=== PATIENT | male | born 1955 | race Caucasian/White ===

== ENCOUNTER 2017-12-08 09:55 | Emergency (ER) | payer SELFPAY ==
[~2017-12-08] VITALS: Ht 177.8 cm; Wt 75.0 kg
[2017-12-08 09:59] VITALS: BP 196/94; PULSE 77; RESP 18; TEMP 97.7; O2SAT 98
--- NOTE | 2017-12-08 10:32 | PD ---
HPI Chief Complaint: Pain: Acute or Chronic Time Seen by Provider: 10:13 Travel History International Travel<30 days: No Contact w/Intl Traveler<30days: No Traveled to known affect area: No History of Present Illness HPI 62-year-old male presents to emergency department with complaint of left lower leg and ankle pain since Monday after he dropped a table on his leg. He says he is able to ambulate and is ambulatory, but he is complaining of continuing pain. He has 2 scabbed abrasions to the lower left leg also. Unknown tetanus status. Does not want his tetanus vaccination updated. Denies paresthesias, loss of sensation, decreased range of motion, decreased strength to the affected extremity. Reports swelling and bruising. Rates pain 12/17. Has not tried any treatments or taken any medications to alleviate his symptoms. Aggravated with walking. Better at rest. No primary care provider. No known allergies. Denies significant past medical history. Has no other medical complaints. No other modifying factors or associated signs and symptoms. [facility] Social History Alcohol Use: Yes Tobacco Use: Yes Substance Use: No Allergies-Medications (Allergen,Severity, Reaction): Coded Allergies: No Known Allergies (Unverified , 12/08/17) Reported Meds & Prescriptions Reported Meds & Active Scripts Active Ibuprofen 800 Mg Tab 800 Mg PO Q6HR PRN Review of Systems Except as stated in HPI: all other systems reviewed are Neg Physical Exam Narrative GENERAL: Well-nourished, well-developed male patient, in no acute distress SKIN: Warm and dry. 2 scabbed abrasion noted to the left lower medial richardson; without signs of infection. HEAD: Atraumatic. Normocephalic. EYES: Pupils equal and round. No scleral icterus. No injection or drainage. ENT: Mucosa pink and moist. Airway patent. NECK: Trachea midline. CARDIOVASCULAR: Regular rate. RESPIRATORY: No accessory muscle use. GASTROINTESTINAL: Flat. MUSCULOSKELETAL: Left ankle with point tenderness to the medial malleolus zone with palpation; without erythema; with edema and ecchymosis. Left lower leg with minimal edema and ecchymosis noted; with tenderness on palpation. Left lower extremity is supple and nontense with 2+ pedal pulse and sensory intact. No obvious deformities. No clubbing. No cyanosis. No edema. NEUROLOGICAL: Awake and alert. Oriented 3. No obvious cranial nerve deficits. Motor grossly within normal limits. Normal speech. PSYCHIATRIC: Appropriate mood and affect; insight and judgment normal. Data Data Last Documented VS Vital Signs Date Time Temp Pulse Resp B/P (MAP) Pulse Ox O2 Delivery O2 Flow Rate FiO2 12/08/17 09:59 97.7 77 18 196/94 (128) 98 Orders Orders Ankle, Complete ([id number]) (12/08/17 10:23) Tibia/Fibula (Ap/Lat) (12/08/17 10:23) Crutches (12/08/17 10:23) Splint Or Brace Apply/Monitor (12/08/17 11:23) Ed Discharge Order (12/08/17 11:23) Brace Ankle Stirrup (12/08/17 ) Brace Ankle Stirrup (12/08/17 ) MDM Medical Decision Making Medical Screen Exam Complete: Yes Emergency Medical Condition: Yes Medical Record Reviewed: Yes Differential Diagnosis Abrasion, contusion, fracture, sprain Narrative Course 62-year-old male with left lower leg and ankle injury. After the patient pain medication and he declined. Left tib-fib x-ray and left ankle x-ray ordered. 1124: Left ankle and left tib-fib x-ray concluded: Tibia/Fibula X-Ray 12/08/17 1023 Signed Impressions: CONCLUSION: Negative trauma study. Ankle X-Ray 12/08/17 1023 Signed Impressions: CONCLUSION: Negative trauma study. X-ray findings discussed with the patient. Pedro bandage, ankle stirrup splint, crutches provided for support. Ibuprofen prescribed for home. Instructed patient to follow-up outpatient if symptoms persist greater than 7-10 days. Instructed patient to follow up with primary care provider. Patient verbalizes understanding and agreement with treatment plan. Patient is medically cleared and stable for discharge. Discussed reasons to return to the emergency department. Patient agrees with treatment plan. The patients vital signs are stable and the patient is stable for outpatient follow-up and treatment. Patient discharged home, stable and in no acute distress. Diagnosis Primary Impression: Contusion of left lower leg Qualified Codes: S80.12XA - Contusion of left lower leg, initial encounter Additional Impressions: Abrasion, left lower leg, initial encounter Left ankle injury Qualified Codes: S99.912A - Unspecified injury of left ankle, initial encounter Referrals: Orthopedist Primary Care Physician Patient Instructions: Abrasion (ED), General Instructions Additional Instructions: Tylenol or ibuprofen as directed and as needed for pain and inflammation Rest, ice, compress, and elevate extremity to decrease pain and inflammation Ankle Brace for support Crutches for support Avoid aggravating activity; increase activity as tolerated Follow-up with primary care provider Return to the emergency department immediately with worsening of symptoms Med/Other Pt SpecificInfo: Prescription(s) given Scripts Ibuprofen (Ibuprofen) 800 Mg Tab 800 MG PO Q6HR Y for PAIN, #20 TAB 0 Refills Prov: Karley Randhawa 12/08/17 Disposition: 01 DISCHARGE HOME Condition: Stable Karley Randhawa Dec 08, 2017 10:32
--- NOTE | 2017-12-08 11:06 | RADRPT ---
EXAM DATE: 12/08/2017 10:50 AM EDT AGE/SEX: 62 years / Male INDICATIONS: Left ankle pain on anterior aspect after dropping a table on lower leg. CLINICAL DATA: This is the patient's initial encounter. Patient reports that signs and symptoms have been present for 2 days and indicates a pain score of 6/10. MEDICAL/SURGICAL HISTORY: None. None. COMPARISON: No prior [place] exams available for comparison. FINDINGS: Bony structures are intact and in normal alignment. Joints are intact without dislocation or signifi cant arthropathy. Osseous density is normal. Soft tissues are unremarkable. No radiopaque foreign bodies seen. CONCLUSION: Negative trauma study. Electronically signed by: Braulio Alcala MD 12/08/2017 11:04 AM EDT
--- NOTE | 2017-12-08 11:06 | RADRPT ---
EXAM DATE: 12/08/2017 10:52 AM EDT AGE/SEX: 62 years / Male INDICATIONS: Left distal tibia/fibula pain after dropping table on it. CLINICAL DATA: This is the patient's initial encounter. Patient reports that signs and symptoms have been present for 2 days and indicates a pain score of 6/10. MEDICAL/SURGICAL HISTORY: None. None. COMPARISON: No prior [place] exams available for comparison. FINDINGS: Bony structures are intact and in normal alignment. Osseous density is normal. Soft tissues are unre markable. No radiopaque foreign bodies seen. CONCLUSION: Negative trauma study. Electronically signed by: Braulio Alcala MD 12/08/2017 11:05 AM EDT
[2017-12-08] MEDS ORDERED: IBUP1TAB7 PO (11:35)
== END 2017-12-08 11:45 | disposition home or self-care (01) ==
LOC: NEPD 09:55
DX: S80.12XA Contusion of left lower leg, initial encounter (principal); S80.812A Abrasion, left lower leg, initial encounter; Z72.0 Tobacco use; W22.8XXA Striking against or struck by other objects, initial encounter
CPT/HCPCS: 73590; 73610; 99283; E0113; L1906

== ENCOUNTER 2018-05-01 15:30 | Inpatient (IN) ==
[2018-05-01] MEDS ORDERED: Sod Chloride 0.9% Inj 1,000 ML IV.SIG ONE (16:05)
[2018-05-01] MEDS ORDERED: Morphine Inj 4 MG/ML Vial IV.PUSH ONE (16:05)
--- NOTE | 2018-05-01 16:12 | ED ---
HPI General Chief Complaint: Abdominal Pain Stated Complaint: Right side pain Time Seen by Provider: 05/01/18 16:00 Source: patient and RN notes reviewed Mode of arrival: ambulatory Limitations: no limitations History of Present Illness HPI narrative: 63-year-old male presents to the emergency department for evaluation of right upper, epigastric abdominal pain. He states it has been intermittent for approximately week, but worsened over the past 2 days. Patient states it has been constant for the past 2 days. Current pain is 8/10, aching and sharp. He denies radiation of the pain. He also reports some right- sided neck pain that he states has been ongoing for several weeks, worse with movement. Patient denies any nausea, vomiting, diarrhea, constipation. He denies any history of abdominal pain or abdominal surgeries. Patient does state that he drinks 2 beers daily. No other symptoms or complaints. Moderate severity. MD complaint: Reports abdominal pain Onset (ago): week(s) Pain Consistency: constant Location: Reports RUQ and epigastric Severity: moderate Severity scale (1-10): 8 Quality: Reports aching and sharp Radiation: Reports none Migration to: Reports no migration Relieving factors: nothing Exacerbating factors: nothing Associated symptoms: Denies nausea, vomiting, diarrhea, fever, chills, constipation, dysuria and syncope Related Data Home Medications Medication Instructions Recorded Confirmed No Known Home Medications 05/01/18 05/01/18 Allergies Allergy/AdvReac Type Severity Reaction Status Date / Time No Known Allergies Allergy Unverified 12/08/17 11:35 Review of Systems ROS: all other systems reviewed are negative [facility] Medical History Medical History Patient denies medical problems (Acute) Surgical History Surgical History No history of previous surgery (Acute) Social History Social History Smoking Status: Never smoker How Often Do You Have a Drink Containing Alcohol: 4 or more times a week Recent Travel in [facility] within the Last 8 Weeks: No Recent Out of Country Travel within the Last 8 Weeks: No Immunization History Tetanus Immunization: Unsure Exam Narrative Exam Narrative: GENERAL: Well-nourished, well-developed male patient, ambulatory. Afebrile. SKIN: Focused skin assessment warm/dry. HEAD: Normocephalic. Atraumatic. EYES: No scleral icterus. No injection or drainage. NECK: Supple, trachea midline. No JVD or lymphadenopathy. CARDIOVASCULAR: Regular rate and rhythm without murmurs, gallops, or rubs. RESPIRATORY: Breath sounds equal bilaterally. No accessory muscle use. GASTROINTESTINAL: Abdomen slightly distended, tenderness over epigastric area and RUQ. MUSCULOSKELETAL: No cyanosis, or edema. BACK: Nontender without obvious deformity. No CVA tenderness. He has tenderness over the right trapezius muscle to palpation. Course Initial Documented Vital Signs Temperature 98.8 F 05/01/18 15:39 Pulse Rate 94 H 05/01/18 15:39 Respiratory Rate 16 05/01/18 15:39 Blood Pressure 191/96 H 05/01/18 15:39 Pulse Oximetry 98 05/01/18 15:39 Last Documented Vital Signs Temperature 98.8 F 05/01/18 15:39 Pulse Rate 78 05/01/18 17:00 Respiratory Rate 16 05/01/18 17:00 Blood Pressure 173/98 H 05/01/18 17:00 Pulse Oximetry 95 05/01/18 17:00 Medical Decision Making EJ Attestation EJ supervised visit: Yes Attestation: I was present with the advanced practitioner during the management of this patient. I discussed the case with the advanced practitioner and agree with the findings and plan as documented in their note except as noted below. 63yM presenting with RUQ/ epigastric abdominal pain x several weeks. The patient states that he's been having intermittent episodes of "aching" RUQ/ epigastric pain for the past several weeks which lasts for hours, not made better or worse by anything, moderate to severe intensity, associated with right shoulder pain. Denies fever or chills, chest pain, cough, nausea or vomiting, diarrhea, dysuria, or trauma. Family history significant for sisters with breast and colon CA. Well-appearing, no acute distress NCAT Trachea midline Regular rate and rhythm Lungs clear bilaterally Abdomen soft, (+) hepatomegaly and (+) Reich's sign, no guarding or rebound No lower extremity edema, normal ROM of bilateral shoulders/ non-tender No rashes or lesions, no jaundice A&Ox3 Appropriate affect A/P: 63yM presenting with RUQ/ epigastric abdominal pain, found to have elevated bilirubin and LFTs as well as large right hepatic mass. Shoulder pain may be referred from diaphragm irritation. Case discussed with Dr. Mcghee of oncology, who recommends transferring patient to the main campus for GI and oncology evaluations, biopsy, and further workup. He also recommends checking CA 19-9, CEA, and AFP tumor markers. Case also discussed with Dr. Rendon of [facility] , who agrees with transfer to [facility]. I explained these results to the patient and his as well as plan to transfer to [facility]; they understand and agree. [facility] Narrative Medical decision making narrative: 63-year-old male presents to the emergency department for evaluation of abdominal pain. He also reports right-sided neck pain is consistent with muscle strain. IV access obtained. EKG, CBC, CMP, magnesium, lipase, PTT, PT/INR, UA ordered and pending. Patient is given normal saline 1 L IV bolus, morphine 4 mg IV, Zofran [address] abdomen/ pelvis with IV contrast is ordered and pending. Ultrasound of the gallbladder was added on by my attending physician, Dr. Pettit. EKG shows SR, no acute ST changes. CBC shows no acute abnormality. CMP shows elevated bilirubin 1.4, AST 119, ALT 175, alkaline phosphatase 164. Lipase is 158. Magnesium is 2.1. PTT is 29.2. PT/INR is 11.2/1.1. 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 My attending physician, Dr. Pettit, called oncologist risk prevention engineer, Dr. Mcghee who recommends admission to the [facility] for biopsy, pain control. She spoke to the hospitalist and admitted the patient. Medical Screen Exam Complete: Yes Emergency Medical Condition: Yes Differential Diagnosis Differential Diagnosis: pancreatitis vs. cholecystitis versus cholelithiasis versus liver cirrhosis versus gastritis Medical Records Medical records reviewed: Yes I reviewed the patient's medical records. Lab Data Lab results reviewed: Yes I reviewed the patient's lab results. Result diagrams: 05/01/18 16:15 05/01/18 16:15 Lab Results 05/01/18 05/01/18 05/01/18 Range/Units 16:15 16:15 16:15 CBC w Diff Auto diff final WBC 6.0 (4.0-11.0) th/mm3 RBC 4.09 L (4.50-5.90) mil/mm3 Hgb 12.8 L (13.0-17.0) gm/dL Hct 36.9 L (39.0-51.0) % MCV 90.4 (80.0-100.0) fL MCH 31.4 (27.0-34.0) pg MCHC 34.7 (32.0-36.0) % RDW 15.4 (11.6-17.2) % Plt Count 106 L (150-450) th/mm3 MPV 9.8 (7.0-11.0) fL Neut % (Auto) 71.7 H (16.0-70.0) % Lymph % (Auto) 15.0 (9.0-44.0) % [place] % (Auto) 5.9 (0.0-8.0) % Eos % (Auto) 3.8 (0.0-4.0) % Baso % (Auto) 3.6 H (0.0-2.0) % Neut # (Auto) 4.3 (1.8-7.7) th/mm3 Lymph # (Auto) 0.9 L (1.0-4.8) th/mm3 [place] # (Auto) 0.4 (0.0-0.9) th/mm3 Eos # (Auto) 0.2 (0.0-0.4) th/mm3 Baso # (Auto) 0.2 (0.0-0.2) th/mm3 WBC Differential . Differential Comment . PT 11.2 (9.8-11.6) sec INR 1.1 Ratio APTT 29.2 (24.3-30.1) sec Sodium 133 L (136-145) meq/L Potassium 4.1 (3.5-5.1) meq/L Chloride 99 (98-107) meq/L Carbon Dioxide 24.1 (21.0-32.0) meq/L Anion Gap 10 (5-15) meq/L BUN 10 (7-18) mg/dL Creatinine 0.88 (0.60-1.30) mg/dL Estimated GFR 88 L (>89) mL/min Random Glucose 98 (74-106) mg/dL Calcium 8.6 (8.5-10.1) mg/dL Magnesium 2.1 (1.5-2.5) mg/dL Total Bilirubin 1.4 H (0.2-1.0) mg/dL AST 119 H (15-37) U/L ALT 175 H (12-78) U/L Alkaline Phosphatase 164 H (45-117) U/L Total Protein 7.1 (6.4-8.2) g/dL Albumin 3.2 L (3.4-5.0) g/dL Lipase 158 (73-393) U/L Alpha Fetoprotein HCG, Quant Gestational Age AFP MoM AFP Interpretation HCG MoM Unconj (Free) Estriol Unconj Estriol MoM Down's Maternal Age Risk Down Syndrome Risk Trisomy 18 Risk NTD Risk Assessment 05/01/18 Range/Units 18:16 CBC w Diff WBC (4.0-11.0) th/mm3 RBC (4.50-5.90) mil/mm3 Hgb (13.0-17.0) gm/dL Hct (39.0-51.0) % MCV (80.0-100.0) fL MCH (27.0-34.0) pg MCHC (32.0-36.0) % RDW (11.6-17.2) % Plt Count (150-450) th/mm3 MPV (7.0-11.0) fL Neut % (Auto) (16.0-70.0) % Lymph % (Auto) (9.0-44.0) % [place] % (Auto) (0.0-8.0) % Eos % (Auto) (0.0-4.0) % Baso % (Auto) (0.0-2.0) % Neut # (Auto) (1.8-7.7) th/mm3 Lymph # (Auto) (1.0-4.8) th/mm3 [place] # (Auto) (0.0-0.9) th/mm3 Eos # (Auto) (0.0-0.4) th/mm3 Baso # (Auto) (0.0-0.2) th/mm3 WBC Differential Differential Comment PT (9.8-11.6) sec INR Ratio APTT (24.3-30.1) sec Sodium (136-145) meq/L Potassium (3.5-5.1) meq/L Chloride (98-107) meq/L Carbon Dioxide (21.0-32.0) meq/L Anion Gap (5-15) meq/L BUN (7-18) mg/dL Creatinine (0.60-1.30) mg/dL Estimated GFR (>89) mL/min Random Glucose (74-106) mg/dL Calcium (8.5-10.1) mg/dL Magnesium (1.5-2.5) mg/dL Total Bilirubin (0.2-1.0) mg/dL AST (15-37) U/L ALT (12-78) U/L Alkaline Phosphatase (45-117) U/L Total Protein (6.4-8.2) g/dL Albumin (3.4-5.0) g/dL Lipase (73-393) U/L Alpha Fetoprotein Cancelled HCG, Quant Cancelled Gestational Age Cancelled AFP MoM Cancelled AFP Interpretation Cancelled HCG MoM Cancelled Unconj (Free) Estriol Cancelled Unconj Estriol MoM Cancelled Down's Maternal Age Risk Cancelled Down Syndrome Risk Cancelled Trisomy 18 Risk Cancelled NTD Risk Assessment Cancelled Imaging Data Radiologist's impression: Abdomen/Pelvis CT 05/01/18 16:05 CONCLUSION: 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 See above discussion. ECG Data Attestation: I personally reviewed and interpreted this ECG as follows: Interpretation: Rate: 80 BPM Rhythm: Sinus [place]: Normal Intervals: Normal intervals, no blocks, QTc 428 ms Q waves: None T waves: Upright, no inversions ST segments: No elevations or depressions Impression: Non-specific EKG, no previous EKG available for comparison. Discharge Plan Discharge Disposition Patient Disposition: 30 Still Patient Discharge Details Diagnosis: Liver mass, right lobe, Transaminitis, Hyperbilirubinemia Physicians Team ED Provider: Kayla Pettit ED Midlevel Provider: Kathia Gallegos Primary Care Provider: Primary Care [place],No Other Providers: Brady Mcghee Rxs /Orders / Referrals /Forms Prescriptions: No Action No Known Home Medications RF: 0 Discharge Interventions Interventions: Vital Signs Last Done: 05/01/18 17:00 Status ED Status: With Doctor
[2018-05-01 16:22] LABS: Baso # (Auto) 0.2 th/mm3 (0.0-0.2); Baso % (Auto) 3.6 % (0.0-2.0); Eos # (Auto) 0.2 th/mm3 (0.0-0.4); Eos % (Auto) 3.8 % (0.0-4.0); Hematocrit 36.9 % (39.0-51.0); Hemoglobin 12.8 gm/dL (13.0-17.0); Lymph # (Auto) 0.9 th/mm3 (1.0-4.8); Mean Corpuscular HGB Conc 34.7 % (32.0-36.0); Mean Corpuscular Hemoglobin 31.4 pg (27.0-34.0); Mean Corpuscular Volume 90.4 fL (80.0-100.0); Mean Platelet Volume 9.8 fL (7.0-11.0); Mono # (Auto) 0.4 th/mm3 (0.0-0.9); Mono % (Auto) 5.9 % (0.0-8.0); Neut # (Auto) 4.3 th/mm3 (1.8-7.7); Neut % (Auto) 71.7 % (16.0-70.0); Platelet Count 106 th/mm3 (150-450); Red Blood Count 4.09 mil/mm3 (4.50-5.90); Red Cell Distribution Width 15.4 % (11.6-17.2)
[2018-05-01 16:32] LABS: Chloride 99 meq/L (98-107); Potassium 4.1 meq/L (3.5-5.1); Sodium 133 meq/L (136-145)
[2018-05-01 16:35] LABS: Calcium 8.6 mg/dL (8.5-10.1)
[2018-05-01 16:36] LABS: Albumin 3.2 g/dL (3.4-5.0); Anion Gap 10 meq/L (5-15); Blood Urea Nitrogen 10 mg/dL (7-18); Carbon Dioxide 24.1 meq/L (21.0-32.0); Glucose,Random 98 mg/dL (74-106); Lipase 158 U/L (73-393); Magnesium 2.1 mg/dL (1.5-2.5)
[2018-05-01 16:38] LABS: Activated Partial Thrombo Time 29.2 sec (24.3-30.1); INR 1.1 Ratio; Prothrombin Time 11.2 sec (9.8-11.6)
[2018-05-01 16:39] LABS: Alanine Aminotransferase 175 U/L (12-78); Aspartate Aminotransferase 119 U/L (15-37); Glomerular Filtration Rate 88 mL/min (>89)
[2018-05-01 16:42] LABS: Alkaline Phosphatase 164 U/L (45-117); Total Protein 7.1 g/dL (6.4-8.2)
--- NOTE | 2018-05-01 17:45 | CT ---
EXAM DATE: 05/01/2018 4:13 PM EDT AGE/SEX: 63 years / Male INDICATIONS: Right upper quadrant pain. CLINICAL DATA: This is the patient's initial encounter. Patient reports that signs and symptoms have been present for 1 week and indicates a pain score of 5/10. MEDICAL/SURGICAL HISTORY: None. None. ORAL CONTRAST: No oral contrast ingested. RADIATION DOSE: 11.09 CTDI (mGy) COMPARISON: No prior exams available for comparison. TECHNIQUE: Multiple contiguous axial images were obtained through the abdomen and pelvis following b olus infusion of 95 ml Omnipaque 350 (iohexol) nonionic water-soluble contrast as a single exam dos e. No oral contrast ingested. Using automated exposure control and adjustment of the mA and/or kV ac cording to patient size, radiation dose was kept as low as reasonably achievable to obtain optimal di agnostic quality images. DICOM format image data is available electronically for review and comparis on. FINDINGS: Lower Lungs: The visualized lower lungs are clear. Liver: There is a heterogeneous nearly 20 cm mass replacing the right lobe of the liver. There is inv asion/thrombosis of the portal vein with obliteration of the right portal vein and significant encroa chment on the main portal vein in the hepatic hilum. There is preserved or reconstituted flow in bran ches of the left portal vein. The superior mesenteric vein enhancement is heterogeneous however this may reflect poor mixing of contrast. Incidental gallstones. Spleen: Homogeneous density without enlargement. Pancreas: Unremarkable without mass or calcification. Kidneys: Bilateral renal cysts. No evidence of hydronephrosis. Adrenal Glands: Unremarkable. Aorta: The aorta and proximal iliac vessels are grossly unremarkable without aneurysmal dilation. Bowel/Mesentery: The bowel loops are grossly unremarkable. The cecum and sigmoid colon have a normal configuration. Mild ascites in the lower abdomen and pelvis. Abdominal Wall: Intact. Retroperitoneum: No evidence of adenopathy in the retrocrural, para-aortic, or deep pelvic regions. Bladder: Contours are smooth. Reproductive Organs: No abnormal masses or calcifications seen. Inguinal: The inguinal region is unremarkable without evidence of adenopathy. Bony Structures: Unremarkable. 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 See above discussion. Electronically signed by: Sunil Lama MD 05/01/2018 5:44 PM EDT
[2018-05-01 18:53] LABS: Bilirubin,Urine Negative (Negative); Clarity,Urine Clear (Clear); Color,Urine Yellow (Yellw/Straw); Glucose,Urine (UA) Negative (Negative); Leukocyte Esterase,Urine Negative (Negative); Nitrite,Urine Negative (Negative); Specific Gravity,Urine Less/Equal 1.005 (1.002-1.035); Urobilinogen,Urine 0.2 mg/dL (Less than 2)
[2018-05-01 18:57] LABS: RBC,Urine 0-3 /hpf (0-3); Squamous Epithelial Cell,Urine 0-5 /hpf (0-5); WBC,Urine 0-5 /hpf (0-5)
[2018-05-01] MEDS: Sod Chloride 0.9% Inj 1,000 ML IV.CONT SCH (19:23)
[2018-05-01] MEDS: Morphine Sulfate Inj 2 MG/ML Vial IV.PUSH PRN (19:23)
[2018-05-01] MEDS ORDERED: Morphine Sulfate Inj 2 MG/ML Vial IV.PUSH ONE (21:28)
[2018-05-02] MEDS: Morphine Sulfate Inj 2 MG/ML Vial IV.PUSH PRN ×6 (00:28→23:23)
--- NOTE | 2018-05-02 01:48 | P.HPIM ---
History of Present Illness Service: [facility] Primary Care Physician: No Primary Care Physician Chief Complaint: abdominal pain History of Present Illness: 63 y/o male with a no medical history presented to the ED with DEMI abdominal pain for 2 days. He states he has been having sharp, stabbing RUQ pain with no radiation or associated nausea or vomiting. He denies any weightless or decreased appetite. Inpatient Certification: I certify that the inpatient services were ordered in accordance with Medicare regulations governing the order. This includes certification that hospital inpatient services are reasonable and necessary and in the case of services not specified as inpatient-only under 42 CFR 419.22(n), that they are appropriately provided as inpatient services in accordance to with the 2-midnight benchmark under 43 CFR 412.3(e) Review of Systems All other systems reviewed negative except as stated in HPI ON LICENSE OF [facility] - History History Provided By: Patient, Family Member - Medical History Medical History: Medical History (Last Reviewed 05/02/18 @ 01:36 by CURT Rosales) Neck pain Patient denies medical problems - Surgical History Surgical History: Surgical History (Last Reviewed 05/02/18 @ 01:36 by CURT Rosales) No history of previous surgery - Family History Family History: Family History (Last Updated 05/02/18 @ 01:37 by CURT Rosales) Sister Family history of breast cancer Father Family history of cancer Throat cancer Mother Lung cancer - Social History I have reviewed the patient's Social History: Yes - Tobacco History Second Hand Smoke Exposure: No Tobacco Use In Past 30 Days: Yes Smoking Status: Current every day smoker Tobacco Type: Cigarettes Packs Per Day: 1 - Alcohol History How Often Do You Have a Drink Containing Alcohol: 4 or more times a week - Substance Use History Substance History: No History of Abuse - Travel History Recent Travel in the [place] Within the Last 8 Weeks: No Recent Travel Out of the Country Within the Last 8 Weeks: No - Immunization History Tetanus Immunization: Unsure Hx Influenza Vaccine This Season: No Medications and Allergies Active Medications: Active Medications Sodium Chloride (Ns Inj) 1,000 mls @ 100 mls/hr IV.CONT .Q10H WILL Last Infusion: 05/01/18 23:00 Dose: 100 mls/hr Morphine Sulfate (Morphine Inj) 2 mg IV.PUSH Q4H PRN PRN Reason: pain Last Admin: 05/02/18 00:28 Dose: 2 mg Ondansetron HCl (Zofran Inj) 4 mg IV.PUSH Q8H PRN PRN Reason: nausea Last Admin: 05/01/18 19:23 Dose: 4 mg Sodium Chloride (Ns Flush) 2 ml IV.FLUSH PRN PRN PRN Reason: FLUSH AFTER USING IV ACCESS Allergies Allergy/AdvReac Type Severity Reaction Status Date / Time No Known Allergies Allergy Unverified 12/08/17 11:35 Home Medications Medication Instructions Recorded Confirmed Type No Known Home Medications 05/01/18 05/01/18 History Exam Vital signs: Vital Signs 05/01/18 15:39 05/01/18 17:00 05/01/18 19:35 Temperature 98.8 F Pulse Rate 94 H 78 77 Respiratory Rate 16 16 18 Blood Pressure 191/96 H 173/98 H 184/103 H Pulse Oximetry 98 95 97 05/01/18 20:19 05/01/18 23:56 05/02/18 01:16 Temperature 97.7 F Pulse Rate 76 78 75 Respiratory Rate 18 18 16 Blood Pressure 175/98 H 178/82 H 182/99 H Pulse Oximetry 97 98 100 05/02/18 01:24 Temperature Pulse Rate 73 Respiratory Rate Blood Pressure Pulse Oximetry Intake & Output 05/01/18 05/01/18 05/02/18 06:59 18:59 06:59 Intake Total 1000 / 1000 Balance 1000 / 1000 Weight 73 kg Intake: IV 1000 / 1000 NS Inj 1,000 ML @ Wide Open IV. 1000 / 1000 SIG BOLUS ONE Rx#:[id number] Other: Date of Last Bowel Movement 05/01/18 Narrative: GENERAL: This is a well-nourished, well-developed patient, in no apparent distress. CARDIOVASCULAR: Regular rate and rhythm without murmurs, gallops, or rubs. RESPIRATORY: Clear to auscultation. Breath sounds equal bilaterally. No wheezes , rales, or rhonchi. GASTROINTESTINAL: Abdomen soft, RUQ tenderness, nondistended. Normal active bowel sounds MUSCULOSKELETAL: Extremities without clubbing, cyanosis, or edema. NEURO: Alert & Oriented x4 to person, place, time, situation. Moves all ext x4 Results - Labs CBC & Chem 7: 05/01/18 16:15 05/01/18 16:15 Labs: Short CBC 05/01/18 Range/Units 16:15 WBC 6.0 (4.0-11.0) th/mm3 Hgb 12.8 L (13.0-17.0) gm/dL Hct 36.9 L (39.0-51.0) % Plt Count 106 L (150-450) th/mm3 BMP 05/01/18 16:15 Sodium 133 L Potassium 4.1 Chloride 99 Carbon Dioxide 24.1 BUN 10 Creatinine 0.88 Calcium 8.6 Liver Function 05/01/18 Range/Units 16:15 Total Bilirubin 1.4 H (0.2-1.0) mg/dL AST 119 H (15-37) U/L ALT 175 H (12-78) U/L Alkaline Phosphatase 164 H (45-117) U/L Albumin 3.2 L (3.4-5.0) g/dL Urine 05/01/18 Range/Units 18:45 Urine Color Yellow (Yellw/Straw) Urine Clarity Clear (Clear) Urine pH 6.0 (5.0-8.5) Ur Specific Castaner Less/equal 1.005 (1.002-1.035) Urine Protein Negative (Neg-Trace) mg/dL Urine Glucose (UA) Negative (Negative) mg/dL - Imaging Impressions Abdomen/Pelvis CT 05/01/18 16:05 CONCLUSION: 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 See above discussion. Caprini VTE Risk Assessment Caprini VTE Risk Assessment: No/Low Risk (score <= 1) Caprini Risk Assessment Model: Point Value = 1 Point Value = 2 Point Value = 3 Point Value = 5 Age 41-60 Minor surgery BMI > 25 kg/m2 Swollen legs Varicose veins or History of unexplained or recurrent spontaneous Oral contraceptives or hormone replacement Sepsis (< 1 month) Serious lung disease, including pneumonia (< 1 month) Abnormal pulmonary function Acute myocardial infarction Congestive heart failure (< 1 month) History of inflammatory bowel disease Medical patient at bed rest Age 61-74 Arthroscopic surgery Major open surgery (> 45 min) Laparoscopic surgery (> 45 min) Malignancy Confined to bed (> 72 hours) Immobilizing plaster cast Central venous access Age >= 75 History of VTE Family history of VTE Factor V Leiden Prothrombin [id number] Lupus anticoagulant Anticardiolipin antibodies Elevated serum homocysteine Heparin-induced thrombocytopenia Other congenital or acquired thrombophilia Stroke (< 1 month) Elective arthroplasty Hip, pelvis, or leg fracture Acute spinal cord injury (< 1 month) Prophylaxis Regimen: Total Risk Factor Score Risk Level Prophylaxis Regimen 0-1 Low Early ambulation 2 Moderate Order ONE of the following: *Sequential Compression Device (SCD) *Heparin 5000 units SQ BID 3-4 Higher Order ONE of the following medications: *Heparin 5000 units SQ TID *Enoxaparin/Lovenox 40 mg SQ daily (WT < 150 kg, CrCl > 30 mL/min) *Enoxaparin/Lovenox 30 mg SQ daily (WT < 150 kg, CrCl > 10-29 mL/min) *Enoxaparin/Lovenox 30 mg SQ BID (WT < 150 kg, CrCl > 30 mL/min) AND/OR *Sequential Compression Device (SCD) 5 or more Highest Order ONE of the following medications: *Heparin 5000 units SQ TID (Preferred with Epidurals) *Enoxaparin/Lovenox 40 mg SQ daily (WT < 150 kg, CrCl > 30 mL/min) *Enoxaparin/Lovenox 30 mg SQ daily (WT < 150 kg, CrCl > 10-29 mL/min) *Enoxaparin/Lovenox 30 mg SQ BID (WT < 150 kg, CrCl > 30 mL/min) AND *Sequential Compression Device (SCD) Assessment and Plan - Plan 63 y/o male with a no medical history presented to the ED with DEMI abdominal pain for 2 days. Liver mass with transaminitis AST 119, alt [address] reviewed and shows a large liver mass with portal vein invasion -ca 19-9, CEA, AFP ordered -Consult to GI and oncology for evaluation -Avoid hepatotoxins -Pain management with IV morphine Hypertension, acute, likely due to pain -Vasotec iv prn -monitor vitals DVT prophylaxis: SCDs Discussed Condition With: Patient and RN H&P: Quality - VTE Deep Vein Thrombosis/Pulmonary Embolism Present on Admission: No
--- NOTE | 2018-05-02 06:54 | ECG ---
Date Performed: 05/01/2018 Time Performed: 16:42:29 PTAGE: 63 years EKG: Sinus rhythm NORMAL ECG NO PREVIOUS TRACING DOCTOR: Enrique Morales Interpretating Date/Time 05/02/2018 06:53:50
--- NOTE | 2018-05-02 09:57 | MB ---
cc: Brady Mcghee MD DATE: 05/02/2018 ATTENDING PHYSICIAN: Miranda Son MD REASON FOR CONSULTATION: Oncology consult. The patient with a liver mass. HISTORY OF PRESENT ILLNESS: The patient is a 63-year-old male with no significant past medical history, who presented to the hospital complaining of right upper quadrant pain. He stated the pain is intermittent in nature and has been going on for about a week. He describes sharp, stabbing pain with no radiation. He denies any nausea or vomiting. He denies any diarrhea. He has no fever or chills. He denies any night sweats or weight loss. He denies change in the bowel habit. He has no melena or hematochezia. He has no chest pain. He has no shortness of breath or cough. He denies any dysuria or hematuria. He has a mild headache this morning. Otherwise, no other pain. He denies any recent travel. He did not eat any uncooked food. 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 When he presented to the hospital, CT showed a large right hepatic mass suspicious for neoplasm. PAST MEDICAL HISTORY: Chronic neck pain. PAST SURGICAL HISTORY: None. FAMILY HISTORY: A sister of breast cancer. Father had throat cancer. Mother had lung cancer. He had 4 sisters, only 1 alive. He has no children. SOCIAL HISTORY: He smoked a pack a day for at least 40 years. He drinks occasionally. 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 ALLERGIES: NO KNOWN DRUG ALLERGIES. CURRENT MEDICATIONS: Morphine p.r.n. REVIEW OF SYSTEMS: CONSTITUTIONAL: As above. EYES: Negative. ENT: Negative. CARDIOVASCULAR: As above. RESPIRATORY: As above. GASTROINTESTINAL: As above. GENITOURINARY: As above. MUSCULOSKELETAL: As above. ENDOCRINE: Negative. HEMATOLOGY: Negative. DERMATOLOGY: Negative. PSYCHIATRIC: Negative. NEUROLOGIC: Negative. PHYSICAL EXAMINATION: VITAL SIGNS: Temperature 97.9, blood pressure 154/89, O2 saturation 97%. GENERAL: He is alert, oriented x3, in no acute distress. HEENT: Atraumatic, normocephalic. Pupils are equal, round, and reactive to light. Extraocular muscles intact. No scleral icterus. Oropharynx dry mucosa. No lesion, no thrush. NECK: No thyromegaly. No palpable mass. LYMPHATIC: No palpable cervical, clavicular, axillary, or inguinal lymph nodes. CARDIOVASCULAR: Regular S1, S2. No murmur. LUNGS: Clear to auscultation bilaterally. No wheeze, no rhonchi. ABDOMEN: Soft, tender in the right upper quadrant. There is a firm area in the right upper quadrant. Difficult to examine because of tenderness. I could not palpate the spleen. EXTREMITIES:: No cyanosis, no clubbing, no edema, no calf tenderness. SKIN: No rash. NEUROLOGIC: Nonfocal. LABORATORY DATA: Reviewed his blood work during this admission. CEA is 2.5, CA 19-9 of 52.9. Alpha fetoprotein 16.2. Liver transaminases are normal. ASSESSMENT: 1. Large liver mass. He presented with right upper quadrant pain, which has been going on for about a week. It is intermittent in nature, and it is a sharp, stabbing pain. CT showed a large 20 cm mass replacing the right hepatic lobe with invasion or thrombosis of portal vein and obliteration of the right portal vein with significant encroachment of main portal vein in the hepatic hilum. There was flow noted in the left portal vein. No significant adenopathy noted. Alpha fetoprotein is slightly elevated at 16.2. CA 19-9 elevated at 52.9. CEA normal at 2.5. Liver transaminase was abnormal. Total bilirubin is 1.4. Clinically, the patient has no significant constitutional symptoms. He has no fever. This is worrisome for a neoplasm like hepatocellular carcinoma. The size of this mass makes it less likely to be metastatic disease, but cannot be totally ruled out. I am going to get a CT of the chest to see if there is any metastatic disease. We will also have radiology do a biopsy of the liver mass. I am going to check his hepatitis panel. GI has been consulted and evaluation pending. There is a small possibility this could be an infectious etiology, like an abscess, but I think it is less likely. 2. Chronic neck pain. RECOMMENDATIONS: 1. Extensive discussion with the patient. 2. Arrange for a CT of the chest. 3. Check hepatitis panel. 4. Consult radiology for biopsy of liver mass. 5. Await GI evaluation. Thank you Dr. Son for asking me to see this patient. MD Savanna Winchester , 08:18 AM , 08:30 AM MTDSharla
--- NOTE | 2018-05-02 13:23 | P.CONGI ---
History of Present Illness Consult date: 05/02/18 Consult reason: Elevated liver function tests Liver mass Chief complaint: liver mass elevated LFTs History of Present Illness: This patient is a 63-year-old male that reports no medical history. Patient reported to the emergency room with complaint of right upper quadrant abdominal pain for 2 weeks. Patient denies any nausea or vomiting. States pain is sharp and intermittent and is aggravated by movement and somewhat alleviated by rest and pain medications administered here at the hospital. Patient denies ever having had any surgery, and denies any known medical history. Denies ever having had an EGD or colonoscopy. Patient denies any known family history for gastrointestinal diseases, disorders or liver elements. Patient denies any obvious noted bleeding, denies any change in the color or consistency of stools or urine. Patient denies any use of prescription meds, states he took an Aleve a week ago for headache, but does not use NSAIDs consistently. Patient denies any high risk sexual behaviors, tattoos or any IV drug use. He endorses smoking 1 pack/day of cigarettes and also states that up until 2 weeks ago he had been drinking 6 beers a day, at this time he drinks 1-2 beers daily. <Kamala Beaver - Last Filed: 05/02/18 13:13> Review of Systems All other systems reviewed negative except as stated in HPI <Kamala Beaver - Last Filed: 05/02/18 13:13> PMFSH - History History Provided By: Patient, Family Member - Medical History Medical History: Medical History (Last Reviewed 05/02/18 @ 01:36 by CURT Rosales) Neck pain Patient denies medical problems - Surgical History Surgical History: Surgical History (Last Reviewed 05/02/18 @ 01:36 by CURT Rosales) No history of previous surgery - Family History Family History: Family History (Last Updated 05/02/18 @ 01:37 by CURT Rosales) Sister Family history of breast cancer Father Family history of cancer Throat cancer Mother Lung cancer - Tobacco History Second Hand Smoke Exposure: No Tobacco Use In Past 30 Days: Yes Smoking Status: Current every day smoker Tobacco Type: Cigarettes Packs Per Day: 1 - Alcohol History How Often Do You Have a Drink Containing Alcohol: 4 or more times a week - Substance Use History Substance History: No History of Abuse - Travel History Recent Travel in the [place] Within the Last 8 Weeks: No Recent Travel Out of the Country Within the Last 8 Weeks: No - Immunization History Tetanus Immunization: Unsure Hx Influenza Vaccine This Season: No <Kamala Beaver - Last Filed: 05/02/18 13:13> - Medical History Medical History: Medical History (Last Reviewed 05/02/18 @ 01:36 by CURT Rosales) Neck pain Patient denies medical problems - Surgical History Surgical History: Surgical History (Last Reviewed 05/02/18 @ 01:36 by CURT Rosales) No history of previous surgery - Family History Family History: Family History (Last Updated 05/02/18 @ 01:37 by CURT Rosales) Sister Family history of breast cancer Father Family history of cancer Throat cancer Mother Lung cancer <Jeff Martins - Last Filed: 05/02/18 16:21> Medications and Allergies Active Medications: Active Medications Enalaprilat (Vasotec Inj) 1.25 mg IV.PUSH Q6H PRN PRN Reason: sbp >160 Last Admin: 05/02/18 09:37 Dose: 1.25 mg Sodium Chloride (Ns Inj) 1,000 mls @ 100 mls/hr IV.CONT .Q10H WILL Last Infusion: 05/01/18 23:00 Dose: 100 mls/hr Morphine Sulfate (Morphine Inj) 2 mg IV.PUSH Q4H PRN PRN Reason: pain Last Admin: 05/02/18 09:21 Dose: 2 mg Ondansetron HCl (Zofran Inj) 4 mg IV.PUSH Q8H PRN PRN Reason: nausea Last Admin: 05/01/18 19:23 Dose: 4 mg Sodium Chloride (Ns Flush) 2 ml IV.FLUSH PRN PRN PRN Reason: FLUSH AFTER USING IV ACCESS <Kamala Beaver - Last Filed: 05/02/18 13:13> Active Medications: Active Medications Enalaprilat (Vasotec Inj) 1.25 mg IV.PUSH Q6H PRN PRN Reason: sbp >160 Last Admin: 05/02/18 14:29 Dose: 1.25 mg Sodium Chloride (Ns Inj) 1,000 mls @ 100 mls/hr IV.CONT .Q10H WILL Last Admin: 05/02/18 14:30 Dose: 100 mls/hr Morphine Sulfate (Morphine Inj) 2 mg IV.PUSH Q4H PRN PRN Reason: pain Last Admin: 05/02/18 14:28 Dose: 2 mg Ondansetron HCl (Zofran Inj) 4 mg IV.PUSH Q8H PRN PRN Reason: nausea Last Admin: 05/01/18 19:23 Dose: 4 mg Sodium Chloride (Ns Flush) 2 ml IV.FLUSH PRN PRN PRN Reason: FLUSH AFTER USING IV ACCESS <Jeff Martins E - Last Filed: 05/02/18 16:21> Allergies Allergy/AdvReac Type Severity Reaction Status Date / Time No Known Allergies Allergy Unverified 12/08/17 11:35 Home Medications Medication Instructions Recorded Confirmed Type No Known Home Medications 05/01/18 05/01/18 History Exam Vital signs: Vital Signs 05/01/18 15:39 05/01/18 17:00 05/01/18 19:35 Temperature 98.8 F Pulse Rate 94 H 78 77 Respiratory Rate 16 16 18 Blood Pressure 191/96 H 173/98 H 184/103 H Pulse Oximetry 98 95 97 05/01/18 20:19 05/01/18 23:56 05/02/18 01:16 Temperature 97.7 F Pulse Rate 76 78 75 Respiratory Rate 18 18 16 Blood Pressure 175/98 H 178/82 H 182/99 H Pulse Oximetry 97 98 100 05/02/18 01:24 05/02/18 04:00 Temperature 97.9 F Pulse Rate 73 68 Respiratory Rate 18 Blood Pressure 154/89 H Pulse Oximetry 97 Intake & Output 05/01/18 05/02/18 05/02/18 18:59 06:59 18:59 Intake Total 1000 / 1000 Balance 1000 / 1000 Weight 73 kg 73.3 kg Intake: IV 1000 / 1000 NS Inj 1,000 ML @ Wide Open IV. 1000 / 1000 SIG BOLUS ONE Rx#:[id number] Other: # Voids 1 Date of Last Bowel Movement 05/01/18 - Constitutional no acute distress - Routine HEENT Exam Head: Present: normocephalic Eye: Present: conjunctival icterus - Routine Neck Exam Present: supple - Routine Respiratory Exam Present: CTA bilaterally. Absent: accessory muscle use - Routine Cardiovascular Exam Present: RRR - Routine Abdominal Exam Present: soft, normoactive bowel sounds, tenderness. Absent: distended, guarding, firm Comments: Right upper quadrant tenderness on palpation - Routine Extremities Exam Present: full ROM, pulses intact. Absent: edema - Routine Skin Exam Present: dry, warm - Routine Neurological Exam Present: alert, oriented X3 <Beaver,Kamala - Last Filed: 05/02/18 13:13> Vital signs: Vital Signs 05/01/18 17:00 05/01/18 19:35 05/01/18 20:19 Temperature Pulse Rate 78 77 76 Respiratory Rate 16 18 18 Blood Pressure 173/98 H 184/103 H 175/98 H Pulse Oximetry 95 97 97 05/01/18 23:56 05/02/18 01:16 05/02/18 01:24 Temperature 97.7 F Pulse Rate 78 75 73 Respiratory Rate 18 16 Blood Pressure 178/82 H 182/99 H Pulse Oximetry 98 100 05/02/18 04:00 05/02/18 08:00 05/02/18 12:00 Temperature 97.9 F 97.9 F 97.8 F Pulse Rate 68 69 70 Respiratory Rate 18 20 16 Blood Pressure 154/89 H 174/92 H 175/99 H Pulse Oximetry 97 97 95 05/02/18 15:40 05/02/18 15:55 Temperature 97.5 F L Pulse Rate 90 100 H Respiratory Rate 18 18 Blood Pressure 138/85 132/75 Pulse Oximetry 94 L 95 Intake & Output 05/01/18 05/02/18 05/02/18 18:59 06:59 18:59 Intake Total 1000 / 1000 1000 / 1000 Balance 1000 / 1000 1000 / 1000 Weight 73 kg 73.3 kg Intake: IV 1000 / 1000 1000 / 1000 NS Inj 1,000 ML @ 100 mls/hr IV 1000 / 1000 .CONT .Q10H WILL Rx#:[id number] NS Inj 1,000 ML @ Wide Open IV. 1000 / 1000 SIG BOLUS ONE Rx#:[id number] Other: # Voids 1 Date of Last Bowel Movement 05/01/18 <Jeff Martins - Last Filed: 05/02/18 16:21> Results - Labs CBC & Chem 7: 05/01/18 16:15 05/01/18 16:15 Labs: Laboratory Results - last 24 hr 05/01/18 05/01/18 05/01/18 16:15 16:15 16:15 CBC w Diff Auto diff final WBC 6.0 RBC 4.09 L Hgb 12.8 L Hct 36.9 L MCV 90.4 MCH 31.4 MCHC 34.7 RDW 15.4 Plt Count 106 L MPV 9.8 Neut % (Auto) 71.7 H Lymph % (Auto) 15.0 [place] % (Auto) 5.9 Eos % (Auto) 3.8 Baso % (Auto) 3.6 H Neut # (Auto) 4.3 Lymph # (Auto) 0.9 L [place] # (Auto) 0.4 Eos # (Auto) 0.2 Baso # (Auto) 0.2 WBC Differential . Differential Comment . PT 11.2 INR 1.1 APTT 29.2 Sodium 133 L Potassium 4.1 Chloride 99 Carbon Dioxide 24.1 Anion Gap 10 BUN 10 Creatinine 0.88 Estimated GFR 88 L Random Glucose 98 Calcium 8.6 Magnesium 2.1 Total Bilirubin 1.4 H AST 119 H ALT 175 H Alkaline Phosphatase 164 H Total Protein 7.1 Albumin 3.2 L Lipase 158 Alpha Fetoprotein Tumor Marker AFP Carcinoembryonic Ag CA 19-9 Antigen HCG, Quant Urine Color Urine Clarity Urine pH Ur Specific [place] Urine Protein Urine Glucose (UA) Urine Ketones Urine Occult Blood Urine Nitrate Urine Bilirubin Urine Urobilinogen Ur Leukocyte Esterase Urine RBC Urine WBC Ur Squamous Epith Cells Micro UA Comment Ur Microscopic Review Urine Culture Comments Gestational Age AFP MoM AFP Interpretation HCG MoM Unconj (Free) Estriol Unconj Estriol MoM Down's Maternal Age Risk Down Syndrome Risk Trisomy 18 Risk NTD Risk Assessment 05/01/18 05/01/18 05/01/18 18:16 18:16 18:16 CBC w Diff WBC RBC Hgb Hct MCV MCH MCHC RDW Plt Count MPV Neut % (Auto) Lymph % (Auto) [place] % (Auto) Eos % (Auto) Baso % (Auto) Neut # (Auto) Lymph # (Auto) [place] # (Auto) Eos # (Auto) Baso # (Auto) WBC Differential Differential Comment PT INR APTT Sodium Potassium Chloride Carbon Dioxide Anion Gap BUN Creatinine Estimated GFR Random Glucose Calcium Magnesium Total Bilirubin AST ALT Alkaline Phosphatase Total Protein Albumin Lipase Alpha Fetoprotein Cancelled Tumor Marker AFP Carcinoembryonic Ag 2.5 CA 19-9 Antigen 52.9 H HCG, Quant Cancelled Urine Color Urine Clarity Urine pH Ur Specific [place] Urine Protein Urine Glucose (UA) Urine Ketones Urine Occult Blood Urine Nitrate Urine Bilirubin Urine Urobilinogen Ur Leukocyte Esterase Urine RBC Urine WBC Ur Squamous Epith Cells Micro UA Comment Ur Microscopic Review Urine Culture Comments Gestational Age Cancelled AFP MoM Cancelled AFP Interpretation Cancelled HCG MoM Cancelled Unconj (Free) Estriol Cancelled Unconj Estriol MoM Cancelled Down's Maternal Age Risk Cancelled Down Syndrome Risk Cancelled Trisomy 18 Risk Cancelled NTD Risk Assessment Cancelled 05/01/18 05/01/18 18:16 18:45 CBC w Diff WBC RBC Hgb Hct MCV MCH MCHC RDW Plt Count MPV Neut % (Auto) Lymph % (Auto) [place] % (Auto) Eos % (Auto) Baso % (Auto) Neut # (Auto) Lymph # (Auto) [place] # (Auto) Eos # (Auto) Baso # (Auto) WBC Differential Differential Comment PT INR APTT Sodium Potassium Chloride Carbon Dioxide Anion Gap BUN Creatinine Estimated GFR Random Glucose Calcium Magnesium Total Bilirubin AST ALT Alkaline Phosphatase Total Protein Albumin Lipase Alpha Fetoprotein Tumor Marker AFP 16.2 H Carcinoembryonic Ag CA 19-9 Antigen HCG, Quant Urine Color Yellow Urine Clarity Clear Urine pH 6.0 Ur Specific [place] Less/equal 1.005 Urine Protein Negative Urine Glucose (UA) Negative Urine Ketones Negative Urine Occult Blood Negative Urine Nitrate Negative Urine Bilirubin Negative Urine Urobilinogen 0.2 Ur Leukocyte Esterase Negative Urine RBC 0-3 Urine WBC 0-5 Ur Squamous Epith Cells 0-5 Micro UA Comment Culture not ind Ur Microscopic Review Microscopic reviewed Urine Culture Comments Culture not ind Gestational Age AFP MoM AFP Interpretation HCG MoM Unconj (Free) Estriol Unconj Estriol MoM Down's Maternal Age Risk Down Syndrome Risk Trisomy 18 Risk NTD Risk Assessment - Imaging Impressions Abdomen/Pelvis CT 05/01/18 16:05 CONCLUSION: 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 See above discussion. <Kamala Beaver - Last Filed: 05/02/18 13:13> - Labs CBC & Chem 7: 05/01/18 16:15 05/01/18 16:15 Labs: Laboratory Results - last 24 hr 05/01/18 05/01/18 05/01/18 16:15 16:15 16:15 CBC w Diff Auto diff final WBC 6.0 RBC 4.09 L Hgb 12.8 L Hct 36.9 L MCV 90.4 MCH 31.4 MCHC 34.7 RDW 15.4 Plt Count 106 L MPV 9.8 Neut % (Auto) 71.7 H Lymph % (Auto) 15.0 [place] % (Auto) 5.9 Eos % (Auto) 3.8 Baso % (Auto) 3.6 H Neut # (Auto) 4.3 Lymph # (Auto) 0.9 L [place] # (Auto) 0.4 Eos # (Auto) 0.2 Baso # (Auto) 0.2 WBC Differential . Differential Comment . PT 11.2 INR 1.1 APTT 29.2 Sodium 133 L Potassium 4.1 Chloride 99 Carbon Dioxide 24.1 Anion Gap 10 BUN 10 Creatinine 0.88 Estimated GFR 88 L Random Glucose 98 Calcium 8.6 Magnesium 2.1 Total Bilirubin 1.4 H AST 119 H ALT 175 H Alkaline Phosphatase 164 H Total Protein 7.1 Albumin 3.2 L Lipase 158 Alpha Fetoprotein Tumor Marker AFP Carcinoembryonic Ag CA 19-9 Antigen HCG, Quant Urine Color Urine Clarity Urine pH Ur Specific [place] Urine Protein Urine Glucose (UA) Urine Ketones Urine Occult Blood Urine Nitrate Urine Bilirubin Urine Urobilinogen Ur Leukocyte Esterase Urine RBC Urine WBC Ur Squamous Epith Cells Micro UA Comment Ur Microscopic Review Urine Culture Comments Hepatitis A IgM Ab Hep Bs Antigen Hep B Core IgM Ab Hep C IgG Ab Gestational Age AFP MoM AFP Interpretation HCG MoM Unconj (Free) Estriol Unconj Estriol MoM Down's Maternal Age Risk Down Syndrome Risk Trisomy 18 Risk NTD Risk Assessment 05/01/18 05/01/18 05/01/18 18:16 18:16 18:16 CBC w Diff WBC RBC Hgb Hct MCV MCH MCHC RDW Plt Count MPV Neut % (Auto) Lymph % (Auto) [place] % (Auto) Eos % (Auto) Baso % (Auto) Neut # (Auto) Lymph # (Auto) [place] # (Auto) Eos # (Auto) Baso # (Auto) WBC Differential Differential Comment PT INR APTT Sodium Potassium Chloride Carbon Dioxide Anion Gap BUN Creatinine Estimated GFR Random Glucose Calcium Magnesium Total Bilirubin AST ALT Alkaline Phosphatase Total Protein Albumin Lipase Alpha Fetoprotein Cancelled Tumor Marker AFP Carcinoembryonic Ag 2.5 CA 19-9 Antigen 52.9 H HCG, Quant Cancelled Urine Color Urine Clarity Urine pH Ur Specific [place] Urine Protein Urine Glucose (UA) Urine Ketones Urine Occult Blood Urine Nitrate Urine Bilirubin Urine Urobilinogen Ur Leukocyte Esterase Urine RBC Urine WBC Ur Squamous Epith Cells Micro UA Comment Ur Microscopic Review Urine Culture Comments Hepatitis A IgM Ab Hep Bs Antigen Hep B Core IgM Ab Hep C IgG Ab Gestational Age Cancelled AFP MoM Cancelled AFP Interpretation Cancelled HCG MoM Cancelled Unconj (Free) Estriol Cancelled Unconj Estriol MoM Cancelled Down's Maternal Age Risk Cancelled Down Syndrome Risk Cancelled Trisomy 18 Risk Cancelled NTD Risk Assessment Cancelled 05/01/18 05/01/18 05/02/18 18:16 18:45 11:36 CBC w Diff WBC RBC Hgb Hct MCV MCH MCHC RDW Plt Count MPV Neut % (Auto) Lymph % (Auto) [place] % (Auto) Eos % (Auto) Baso % (Auto) Neut # (Auto) Lymph # (Auto) [place] # (Auto) Eos # (Auto) Baso # (Auto) WBC Differential Differential Comment PT INR APTT Sodium Potassium Chloride Carbon Dioxide Anion Gap BUN Creatinine Estimated GFR Random Glucose Calcium Magnesium Total Bilirubin AST ALT Alkaline Phosphatase Total Protein Albumin Lipase Alpha Fetoprotein Tumor Marker AFP 16.2 H Carcinoembryonic Ag CA 19-9 Antigen HCG, Quant Urine Color Yellow Urine Clarity Clear Urine pH 6.0 Ur Specific [place] Less/equal 1.005 Urine Protein Negative Urine Glucose (UA) Negative Urine Ketones Negative Urine Occult Blood Negative Urine Nitrate Negative Urine Bilirubin Negative Urine Urobilinogen 0.2 Ur Leukocyte Esterase Negative Urine RBC 0-3 Urine WBC 0-5 Ur Squamous Epith Cells 0-5 Micro UA Comment Culture not ind Ur Microscopic Review Microscopic reviewed Urine Culture Comments Culture not ind Hepatitis A IgM Ab Nonreactive Hep Bs Antigen Nonreactive Hep B Core IgM Ab Nonreactive Hep C IgG Ab Reactive H Gestational Age AFP MoM AFP Interpretation HCG MoM Unconj (Free) Estriol Unconj Estriol MoM Down's Maternal Age Risk Down Syndrome Risk Trisomy 18 Risk NTD Risk Assessment - Imaging Impressions Abdomen/Pelvis CT 05/01/18 16:05 CONCLUSION: 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 See above discussion. Chest CT 05/02/18 00:00 CONCLUSION: 1. Patchy airspace consolidation in the extreme lung bases bilaterally, likely reflecting atelectasis. 2. Trace right pleural effusion. 3. Coronary artery calcifications. 4. Redemonstration of large infiltrative hepatic mass and trace ascites in the upper abdomen. Liver Biopsy CT 05/02/18 00:00 CONCLUSION: Uncomplicated CT guided core biopsy of large right lobe liver mass as above. <Sa Eliezerlucia Gaines - Last Filed: 05/02/18 16:21> Assessment and Plan (1) Liver mass, right lobe Status: Acute Code(s): R16.0 - Hepatomegaly, not elsewhere classified (2) Transaminitis Status: Acute Code(s): R74.0 - Nonspecific elevation of levels of transaminase and lactic acid dehydrogenase [LDH] (3) Hyperbilirubinemia Status: Acute Code(s): E80.6 - Other disorders of bilirubin metabolism - Plan This patient is a 63-year-old male that reports no medical history. Patient reported to the emergency room with complaint of right upper quadrant abdominal pain for 2 weeks. Patient denies any nausea or vomiting. States pain is sharp and intermittent and is aggravated by movement and somewhat alleviated by rest and pain medications administered here at the hospital. Patient denies ever having had any surgery, and denies any known medical history. Denies ever having had an EGD or colonoscopy. Patient denies any known family history for gastrointestinal diseases, disorders or liver elements. Patient denies any obvious noted bleeding, denies any change in the color or consistency of stools or urine. Patient denies any use of prescription meds, states he took an Aleve a week ago for headache, but does not use NSAIDs consistently. Patient denies any high risk sexual behaviors, tattoos or any IV drug use. He endorses smoking 1 pack/day of cigarettes and also states that up until 2 weeks ago he had been drinking 6 beers a day, at this time he drinks 1-2 beers daily. Transaminitis/hyperbilirubinemia/liver mass 05/01/2018 total bilirubin 1.4 AST 119 ALT 175 alk phos 164 albumin 3.2 AFP tumor marker 16.2, CA 199 antigen 52.9 hemoglobin 12.8 hematocrit 36.9 INR 1.1 Patient endorses long history of alcohol use. (05/01) CT abdomen and pelvis revealed the following findings:There is a heterogeneous nearly 20 cm mass replacing the right lobe of the liver. 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 There is preserved or reconstituted flow in branches of the left portal vein. The superior mesenteric vein enhancement is heterogeneous however this may reflect poor mixing of contrast. Incidental gallstones. Plan -Diet as tolerated post liver biopsy -Liver biopsy scheduled for today -Continue to monitor liver function tests -Avoid hepatotoxins -Consider oncology consult/possibly palliative care -Supportive care -Further recommendations to follow based on patient status and findings This patient has been seen by myself and Dr. Martins and this note is written on his behalf - Attending Attestation Dr. Martins <Kamala Beaver - Last Filed: 05/02/18 13:13> (1) Liver mass, right lobe Status: Acute Code(s): R16.0 - Hepatomegaly, not elsewhere classified (2) Transaminitis Status: Acute Code(s): R74.0 - Nonspecific elevation of levels of transaminase and lactic acid dehydrogenase [LDH] (3) Hyperbilirubinemia Status: Acute Code(s): E80.6 - Other disorders of bilirubin metabolism - Plan Patient seen and examined Agree with above Continue with current supportive care Monitor labs Await liver biopsy <Jeff Martins - Last Filed: 05/02/18 16:21>
[2018-05-02 13:26] LABS: Hepatitits B Surface Antigen Nonreactive (Nonreactive)
[2018-05-02 13:50] LABS: Hepatitis A IgM Antibody Nonreactive (Nonreactive)
[2018-05-02] MEDS ORDERED: fentaNYL Citrate Inj 250 MCG/5 ML Ampul ONE (14:23)
[2018-05-02] MEDS: Sod Chloride 0.9% Inj 1,000 ML IV.CONT SCH ×2 (14:30→20:20)
--- NOTE | 2018-05-02 15:48 | CT ---
EXAM DATE: 05/02/2018 12:17 PM EDT AGE/SEX: 63 years / Male INDICATIONS: Right upper chest and shoulder pain. CLINICAL DATA: This is the patient's initial encounter. Patient reports that signs and symptoms have been present for 1 day and indicates a pain score of 0/10. MEDICAL/SURGICAL HISTORY: None. None. RADIATION DOSE: 8.94 CTDI (mGy) COMPARISON: [facility], CT ABDOMEN & PELVIS W CONTRAST, 05/01/2018. . TECHNIQUE: Multiple contiguous axial images were obtained through the chest during bolus infusion of 96 ml Omnipaque 350 (iohexol) nonionic water-soluble contrast as a single exam dose. Images were obtained in suspended respiration using multiple row detector helical technique. Using automated exp osure control and adjustment of the mA and/or kV according to patient size, radiation dose was kept a s low as reasonably achievable to obtain optimal diagnostic quality images. DICOM format image data is available electronically for review and comparison. FINDINGS: Lung: Patchy airspace consolidation at the extreme lung bases bilaterally. Pleura: There are small right-sided pleural effusion. Mediastinum: Heart is unremarkable without significant pericardial effusion. Moderate coronary arter y calcifications. No significant mediastinal adenopathy. Main pulmonary artery is patent. Osseous Structures: No abnormal focal lytic or blastic bony lesions. Soft Tissues: Soft tissues are unremarkable. No significant axillary adenopathy. Other: Visualized upper abdomen again demonstrates a very large infiltrative hepatic mass. There is also trace ascites. CONCLUSION: 1. Patchy airspace consolidation in the extreme lung bases bilaterally, likely reflecting atelectasi s. 2. Trace right pleural effusion. 3. Coronary artery calcifications. 4. Redemonstration of large infiltrative hepatic mass and trace ascites in the upper abdomen. Electronically signed by: Jessee Palumbo MD 05/02/2018 3:47 PM EDT
--- NOTE | 2018-05-02 16:02 | CT ---
EXAM DATE: 05/02/2018 12:17 PM EDT AGE/SEX: 63 years / Male INDICATIONS: Liver mass. CLINICAL DATA: This is the patient's initial encounter. Patient reports that signs and symptoms have been present for 1 day and indicates a pain score of 0/10. MEDICAL/SURGICAL HISTORY: None. None. COMPARISON: [facility], CT ABDOMEN & PELVIS W CONTRAST, 05/01/2018. . BIOPSY SITE: . Right lobe liver mass MEDICATION(S): 3.5MG midazolam (Versed) IV 125MCG fentanyl (Sublimaze) IV DEVICE(S): 16 gauge Temno core biopsy needle One core specimen(s) sent to the laboratory for pathologic evaluation. . . PROCEDURE: CT guided . liver biopsy Conscious sedation with continuous EKG and oximetry monitoring. Prior to the procedure informed consent was obtained. Any appropriate prior imaging studies were rev iewed. Using automated exposure control and adjustment of the mA and/or kV according to patient size, radiat ion dose was kept as low as reasonably achievable to obtain optimal diagnostic quality images. DICOM format image data is available electronically for review and comparison. The site was prepped in a sterile fashion. Full sterile technique was used, including cap, mask, michelle rile gloves and gown and a large sterile sheet. Hand hygiene and 2% chlorhexidine and/or betadine/al cohol prep was utilized per protocol for cutaneous antisepsis. The skin and subcutaneous tissues wer e infiltrated with local anesthetic solution. With CT guidance the previously identified target was localized. Biopsy was performed using the presc ribed needle as above. Adequate hemostasis was obtained with compression at the puncture site. Follow-up CT scan reveals no hemorrhage. The patient tolerated the procedure well and there were no complications. The patient was returned to the Radiology Outpatient Unit in stable condition. CONCLUSION: Uncomplicated CT guided core biopsy of large right lobe liver mass as above. Electronically signed by: Sunil Lama MD 05/02/2018 4:01 PM EDT
--- NOTE | 2018-05-02 21:57 | P.PNIM ---
Subjective Interval history: Patient says he is feeling RN. Denies any chest pain shortness breath. Denies nausea or vomiting. Reports pain is controlled following liver biopsy Physical Exam Vital signs: Vital Signs 05/01/18 23:56 05/02/18 01:16 05/02/18 01:24 Temperature 97.7 F Pulse Rate 78 75 73 Respiratory Rate 18 16 Blood Pressure 178/82 H 182/99 H Pulse Oximetry 98 100 05/02/18 04:00 05/02/18 08:00 05/02/18 12:00 Temperature 97.9 F 97.9 F 97.8 F Pulse Rate 68 69 70 Respiratory Rate 18 20 16 Blood Pressure 154/89 H 174/92 H 175/99 H Pulse Oximetry 97 97 95 05/02/18 15:40 05/02/18 15:55 05/02/18 16:00 Temperature 97.5 F L 98.0 F Pulse Rate 90 100 H 86 Respiratory Rate 18 18 16 Blood Pressure 138/85 132/75 142/87 H Pulse Oximetry 94 L 95 94 L Intake & Output 05/02/18 05/02/18 05/03/18 06:59 18:59 06:59 Intake Total 1000 / 1000 1000 / 1000 Balance 1000 / 1000 1000 / 1000 Weight 73.3 kg Intake: IV 1000 / 1000 1000 / 1000 NS Inj 1,000 ML @ 100 mls/hr IV 1000 / 1000 1000 / 1000 .CONT .Q10H [facility] Rx#:[id number] Other: # Voids 1 Date of Last Bowel Movement 05/01/18 Narrative: GENERAL: patient lying in bed. Appears comfortable. Alert and oriented 3. SKIN: Warm and dry. HEAD: Normocephalic. EYES: No scleral icterus. No injection or drainage. NECK: Supple, trachea midline. No JVD. CARDIOVASCULAR: Regular rate and rhythm without murmurs, gallops, or rubs. RESPIRATORY: Breath sounds equal bilaterally. No accessory muscle use. GASTROINTESTINAL: Abdomen soft, non-tender, nondistended. patient lying on right side as instructed post procedurally MUSCULOSKELETAL: No cyanosis, or edema. BACK: Nontender without obvious deformity. No CVA tenderness. Results - Labs CBC & Chem 7: 05/01/18 16:15 05/01/18 16:15 Laboratory Results - last 24 hr 05/01/18 05/01/18 05/02/18 18:16 18:16 11:36 Tumor Marker AFP 16.2 H CA 19-9 Antigen 52.9 H Hepatitis A IgM Ab Nonreactive Hep Bs Antigen Nonreactive Hep B Core IgM Ab Nonreactive Hep C IgG Ab Reactive H - Imaging Impressions Chest CT 05/02/18 00:00 CONCLUSION: 1. Patchy airspace consolidation in the extreme lung bases bilaterally, likely reflecting atelectasis. 2. Trace right pleural effusion. 3. Coronary artery calcifications. 4. Redemonstration of large infiltrative hepatic mass and trace ascites in the upper abdomen. Liver Biopsy CT 05/02/18 00:00 CONCLUSION: Uncomplicated CT guided core biopsy of large right lobe liver mass as above. Assessment and Plan - Plan 63 y/o male with a no medical history presented to the ED with DEMI abdominal pain for 2 days. 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 Status post liver biopsy. Discussed with oncology. Follow-up pathology results. Hypertension, acute, likely due to pain -Vasotec iv prn = 05/02. Blood pressure couple. Continue to monitor. DVT prophylaxis: SCDs Discharge Planning: SSI pending We'll need oncology clearance.
[2018-05-03] MEDS: Sod Chloride 0.9% Inj 1,000 ML IV.CONT SCH ×2 (04:53→20:29)
[2018-05-03 05:25] LABS: Baso % (Auto) 0.9 % (0.0-2.0); Eos # (Auto) 0.3 th/mm3 (0.0-0.4); Hematocrit 34.4 % (39.0-51.0); Hemoglobin 11.7 gm/dL (13.0-17.0); Lymph # (Auto) 0.9 th/mm3 (1.0-4.8); Mean Corpuscular HGB Conc 33.9 % (32.0-36.0); Mean Corpuscular Hemoglobin 31.6 pg (27.0-34.0); Mean Corpuscular Volume 93.2 fL (80.0-100.0); Mean Platelet Volume 10.2 fL (7.0-11.0); Mono # (Auto) 0.3 th/mm3 (0.0-0.9); Mono % (Auto) 7.2 % (0.0-8.0); Neut # (Auto) 2.8 th/mm3 (1.8-7.7); Neut % (Auto) 64.9 % (16.0-70.0); Platelet Count 91 th/mm3 (150-450); Red Blood Count 3.69 mil/mm3 (4.50-5.90); Red Cell Distribution Width 15.9 % (11.6-17.2); White Blood Count 4.3 th/mm3 (4.0-11.0)
[2018-05-03 05:49] LABS: Alanine Aminotransferase 160 U/L (12-78); Albumin 2.8 g/dL (3.4-5.0); Anion Gap 9 meq/L (5-15); Aspartate Aminotransferase 104 U/L (15-37); Blood Urea Nitrogen 10 mg/dL (7-18); Calcium 8.1 mg/dL (8.5-10.1); Carbon Dioxide 24.9 meq/L (21.0-32.0); Chloride 104 meq/L (98-107); Glomerular Filtration Rate Greater Than 89 mL/min (>89); Glucose,Random 82 mg/dL (74-106); Potassium 4.2 meq/L (3.5-5.1); Sodium 138 meq/L (136-145)
[2018-05-03 05:51] LABS: Alkaline Phosphatase 132 U/L (45-117); Total Protein 6.4 g/dL (6.4-8.2)
[2018-05-03 09:59] LABS: Platelet Morphology Normal (Normal)
--- NOTE | 2018-05-03 11:44 | P.PN ---
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 status post Liver biopsy 05/02/1805/03: Seen in his bedroom complaint of abdominal distention, he had Liver biopsy yesterday, I have been called later by nurse Mr. Chaney the patient is been worsening, discussed with nurse, and Crime Prevention Worker will tr to give the patient a blue Card for Insurance and try to help him to get follow up as outpatient, he continue Hypertensive, he is eating and drinking properly were removed IV fluids. no nausea, vomit or diarrhea. Physical Exam Vital signs: Vital Signs 05/02/18 12:00 05/02/18 15:40 05/02/18 15:55 Temperature 97.8 F 97.5 F L Pulse Rate 70 90 100 H Respiratory Rate 16 18 18 Blood Pressure 175/99 H 138/85 132/75 Pulse Oximetry 95 94 L 95 05/02/18 16:00 05/02/18 20:00 05/03/18 00:00 Temperature 98.0 F 98 F 98.9 F Pulse Rate 86 75 75 Respiratory Rate 16 16 15 Blood Pressure 142/87 H 171/90 H 157/91 H Pulse Oximetry 94 L 98 98 05/03/18 04:00 05/03/18 06:40 Temperature 97.6 F Pulse Rate 73 Respiratory Rate 15 Blood Pressure 181/100 H 156/82 H Pulse Oximetry 98 Intake & Output 05/02/18 05/03/18 05/03/18 18:59 06:59 18:59 Intake Total 1999 Balance 1999 Weight 73 kg Intake: IV 1999 NS Inj 1,000 ML @ 100 mls/hr IV 1999 .CONT .Q10H [facility] Rx#:[id number] Other: Date of Last Bowel Movement 05/01/18 Narrative: GENERAL: No acute distress. SKIN: Warm and dry. HEAD: Normocephalic. EYES: No scleral icterus. No injection or drainage. NECK: Supple, trachea midline. No JVD. CARDIOVASCULAR: Regular rate and rhythm without murmurs, gallops, or rubs. RESPIRATORY: Breath sounds equal bilaterally. No accessory muscle use. GASTROINTESTINAL: distended and hard to palpation, decreased bowel sounds. MUSCULOSKELETAL: No cyanosis, or edema. BACK: Nontender without obvious deformity. No CVA tenderness. Results - Labs CBC & Chem 7: 05/03/18 04:52 05/03/18 04:52 Laboratory Results - last 24 hr 05/02/18 05/03/18 05/03/18 11:36 04:52 04:52 WBC 4.3 RBC 3.69 L Hgb 11.7 L Hct 34.4 L MCV 93.2 MCH 31.6 MCHC 33.9 RDW 15.9 Plt Count 91 L MPV 10.2 Prelim Diff (Auto) Slide review pending Neut % (Auto) 64.9 Lymph % (Auto) 20.0 [place] % (Auto) 7.2 Eos % (Auto) 7.0 H Baso % (Auto) 0.9 Neut # (Auto) 2.8 Lymph # (Auto) 0.9 L [place] # (Auto) 0.3 Eos # (Auto) 0.3 Baso # (Auto) 0.0 WBC Differential . Diff Scan Auto diff confirmed Differential Comment . Platelet Estimate Low L Platelet Morphology Normal Sodium Potassium Chloride Carbon Dioxide Anion Gap BUN Creatinine Estimated GFR Random Glucose Calcium Total Bilirubin AST ALT Alkaline Phosphatase Ammonia 28 Total Protein Albumin Hepatitis A IgM Ab Nonreactive Hep Bs Antigen Nonreactive Hep B Core IgM Ab Nonreactive Hep C IgG Ab Reactive H 05/03/18 04:52 WBC RBC Hgb Hct MCV MCH MCHC RDW Plt Count MPV Prelim Diff (Auto) Neut % (Auto) Lymph % (Auto) [place] % (Auto) Eos % (Auto) Baso % (Auto) Neut # (Auto) Lymph # (Auto) [place] # (Auto) Eos # (Auto) Baso # (Auto) WBC Differential Diff Scan Differential Comment Platelet Estimate Platelet Morphology Sodium 138 Potassium 4.2 Chloride 104 Carbon Dioxide 24.9 Anion Gap 9 BUN 10 Creatinine 0.74 Estimated GFR Greater than 89 Random Glucose 82 Calcium 8.1 L Total Bilirubin 1.2 H AST 104 H ALT 160 H Alkaline Phosphatase 132 H Ammonia Total Protein 6.4 D Albumin 2.8 L Hepatitis A IgM Ab Hep Bs Antigen Hep B Core IgM Ab Hep C IgG Ab - Imaging Impressions Chest CT 05/02/18 00:00 CONCLUSION: 1. Patchy airspace consolidation in the extreme lung bases bilaterally, likely reflecting atelectasis. 2. Trace right pleural effusion. 3. Coronary artery calcifications. 4. Re demonstration of large infiltrative hepatic mass and trace ascites in the upper abdomen. Liver Biopsy CT 05/02/18 00:00 CONCLUSION: Uncomplicated CT guided core biopsy of large right lobe liver mass as above. - Procedures CT guided Liver Biopsy Assessment and Plan - Plan 63 y/o male with a no medical history presented to the ED with DEMI abdominal pain for 2 days. 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 Hypertension Uncontrolled continue management. -Vasotec iv prn = 05/03 added Hydralazine, given Amlodipine early. DVT prophylaxis: SCDs Code Status: Full code. 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
[2018-05-03] MEDS ORDERED: amLODIPine 5 MG Tablet PO SCH (12:00)
--- NOTE | 2018-05-03 12:02 | P.PNGI ---
Subjective Interval history: Patient sitting upright in bed, awaiting lunch meal. States having less abdominal pain to right upper quadrant, endorses pain increases with movement. <Kamala Beaver - Last Filed: 05/03/18 11:51> Physical Exam Vital signs: Vital Signs 05/02/18 12:00 05/02/18 15:40 05/02/18 15:55 Temperature 97.8 F 97.5 F L Pulse Rate 70 90 100 H Respiratory Rate 16 18 18 Blood Pressure 175/99 H 138/85 132/75 Pulse Oximetry 95 94 L 95 05/02/18 16:00 05/02/18 20:00 05/03/18 00:00 Temperature 98.0 F 98 F 98.9 F Pulse Rate 86 75 75 Respiratory Rate 16 16 15 Blood Pressure 142/87 H 171/90 H 157/91 H Pulse Oximetry 94 L 98 98 05/03/18 04:00 05/03/18 06:40 Temperature 97.6 F Pulse Rate 73 Respiratory Rate 15 Blood Pressure 181/100 H 156/82 H Pulse Oximetry 98 Intake & Output 05/02/18 05/03/18 05/03/18 18:59 06:59 18:59 Intake Total 1999 Balance 1999 Weight 73 kg Intake: IV 1999 NS Inj 1,000 ML @ 100 mls/hr IV 1999 .CONT .Q10H [facility] Rx#:[id number] Other: Date of Last Bowel Movement 05/01/18 - Constitutional no acute distress - Routine HEENT Exam Head: Present: normocephalic Eye: Present: conjunctival icterus - Routine Respiratory Exam Present: CTA bilaterally. Absent: accessory muscle use - Routine Abdominal Exam Present: soft, normoactive bowel sounds, tenderness. Absent: guarding, firm - Routine Skin Exam Present: dry, warm - Routine Neurological Exam Present: alert, normal reflexes - Routine Psychiatric Exam Present: normal affect, cooperative <Kamala Beaver - Last Filed: 05/03/18 11:51> Vital signs: Vital Signs 05/02/18 20:00 05/03/18 00:00 05/03/18 04:00 Temperature 98 F 98.9 F 97.6 F Pulse Rate 75 75 73 Respiratory Rate 16 15 15 Blood Pressure 171/90 H 157/91 H 181/100 H Pulse Oximetry 98 98 98 05/03/18 06:40 05/03/18 07:25 05/03/18 08:00 Temperature Pulse Rate 69 Respiratory Rate 18 Blood Pressure 156/82 H 175/110 H Pulse Oximetry 05/03/18 12:00 05/03/18 12:04 05/03/18 16:00 Temperature 97.4 F L Pulse Rate 85 81 Respiratory Rate 18 18 16 Blood Pressure 175/104 H 191/109 H Pulse Oximetry 95 98 Intake & Output 05/02/18 05/03/18 05/03/18 18:59 06:59 18:59 Intake Total 1999 Balance 1999 Weight 73 kg Intake: IV 1999 NS Inj 1,000 ML @ 100 mls/hr IV 1999 .CONT .Q10H [facility] Rx#:[id number] Other: Date of Last Bowel Movement 05/01/18 <Jeff Martins E - Last Filed: 05/03/18 18:07> Results - Labs CBC & Chem 7: 05/03/18 04:52 05/03/18 04:52 Laboratory Results - last 24 hr 05/02/18 05/03/18 05/03/18 11:36 04:52 04:52 WBC 4.3 RBC 3.69 L Hgb 11.7 L Hct 34.4 L MCV 93.2 MCH 31.6 MCHC 33.9 RDW 15.9 Plt Count 91 L MPV 10.2 Prelim Diff (Auto) Slide review pending Neut % (Auto) 64.9 Lymph % (Auto) 20.0 [place] % (Auto) 7.2 Eos % (Auto) 7.0 H Baso % (Auto) 0.9 Neut # (Auto) 2.8 Lymph # (Auto) 0.9 L [place] # (Auto) 0.3 Eos # (Auto) 0.3 Baso # (Auto) 0.0 WBC Differential . Diff Scan Auto diff confirmed Differential Comment . Platelet Estimate Low L Platelet Morphology Normal Sodium Potassium Chloride Carbon Dioxide Anion Gap BUN Creatinine Estimated GFR Random Glucose Calcium Total Bilirubin AST ALT Alkaline Phosphatase Ammonia 28 Total Protein Albumin Hepatitis A IgM Ab Nonreactive Hep Bs Antigen Nonreactive Hep B Core IgM Ab Nonreactive Hep C IgG Ab Reactive H 05/03/18 04:52 WBC RBC Hgb Hct MCV MCH MCHC RDW Plt Count MPV Prelim Diff (Auto) Neut % (Auto) Lymph % (Auto) [place] % (Auto) Eos % (Auto) Baso % (Auto) Neut # (Auto) Lymph # (Auto) [place] # (Auto) Eos # (Auto) Baso # (Auto) WBC Differential Diff Scan Differential Comment Platelet Estimate Platelet Morphology Sodium 138 Potassium 4.2 Chloride 104 Carbon Dioxide 24.9 Anion Gap 9 BUN 10 Creatinine 0.74 Estimated GFR Greater than 89 Random Glucose 82 Calcium 8.1 L Total Bilirubin 1.2 H AST 104 H ALT 160 H Alkaline Phosphatase 132 H Ammonia Total Protein 6.4 D Albumin 2.8 L Hepatitis A IgM Ab Hep Bs Antigen Hep B Core IgM Ab Hep C IgG Ab - Imaging Impressions Chest CT 05/02/18 00:00 CONCLUSION: 1. Patchy airspace consolidation in the extreme lung bases bilaterally, likely reflecting atelectasis. 2. Trace right pleural effusion. 3. Coronary artery calcifications. 4. Redemonstration of large infiltrative hepatic mass and trace ascites in the upper abdomen. Liver Biopsy CT 05/02/18 00:00 CONCLUSION: Uncomplicated CT guided core biopsy of large right lobe liver mass as above. <Kamala Beaver - Last Filed: 05/03/18 11:51> - Labs CBC & Chem 7: 05/03/18 04:52 05/03/18 04:52 Laboratory Results - last 24 hr 05/03/18 05/03/18 05/03/18 04:52 04:52 04:52 WBC 4.3 RBC 3.69 L Hgb 11.7 L Hct 34.4 L MCV 93.2 MCH 31.6 MCHC 33.9 RDW 15.9 Plt Count 91 L MPV 10.2 Prelim Diff (Auto) Slide review pending Neut % (Auto) 64.9 Lymph % (Auto) 20.0 [place] % (Auto) 7.2 Eos % (Auto) 7.0 H Baso % (Auto) 0.9 Neut # (Auto) 2.8 Lymph # (Auto) 0.9 L [place] # (Auto) 0.3 Eos # (Auto) 0.3 Baso # (Auto) 0.0 WBC Differential . Diff Scan Auto diff confirmed Differential Comment . Platelet Estimate Low L Platelet Morphology Normal Sodium 138 Potassium 4.2 Chloride 104 Carbon Dioxide 24.9 Anion Gap 9 BUN 10 Creatinine 0.74 Estimated GFR Greater than 89 Random Glucose 82 Calcium 8.1 L Total Bilirubin 1.2 H AST 104 H ALT 160 H Alkaline Phosphatase 132 H Ammonia 28 Total Protein 6.4 D Albumin 2.8 L <Jeff Martins - Last Filed: 05/03/18 18:07> Assessment and Plan (1) Liver mass, right lobe Status: Acute Code(s): R16.0 - Hepatomegaly, not elsewhere classified (2) Transaminitis Status: Acute Code(s): R74.0 - Nonspecific elevation of levels of transaminase and lactic acid dehydrogenase [LDH] (3) Hyperbilirubinemia Status: Acute Code(s): E80.6 - Other disorders of bilirubin metabolism - Plan 05/03/2018 Transaminitis/hyperbilirubinemia/liver mass Hemoglobin 11.7 hematocrit 34.4 platelet count 91 total bilirubin 1.2 AST 104 ALT 160 alk phos 132 trending down, ammonia 28 albumin 2.8 Liver biopsy performed on 05/02/2018-results pending Hepatitis screen nonreactive with exception for hep C IgG antibody-patient denies any known past exposure Plan -Diet as tolerated -Await liver biopsy results -Monitor liver function tests -Avoid hepatotoxins -Analgesia as per attending -Supportive care -Further recommendations to follow This patient has been seen by myself and Dr. Martins and this note is written on his behalf - Attending Attestation Dr. Martins <Kamala Beaver - Last Filed: 05/03/18 11:51> (1) Liver mass, right lobe Status: Acute Code(s): R16.0 - Hepatomegaly, not elsewhere classified (2) Transaminitis Status: Acute Code(s): R74.0 - Nonspecific elevation of levels of transaminase and lactic acid dehydrogenase [LDH] (3) Hyperbilirubinemia Status: Acute Code(s): E80.6 - Other disorders of bilirubin metabolism - Plan Patient seen and examined Agree with above Continue with current supportive care Monitor labs Await pathology <Jeff Martins - Last Filed: 05/03/18 18:07>
--- NOTE | 2018-05-03 16:39 | P.PNONC ---
Subjective Interval history: Afebrile. Patient awake and alert with no complaints at this time. His biopsy results are still pending. He reports a good appetite. Objective Vital Signs/Intake & Output: Vital Signs 05/02/18 20:00 05/03/18 00:00 05/03/18 04:00 Temperature 98 F 98.9 F 97.6 F Pulse Rate 75 75 73 Respiratory Rate 16 15 15 Blood Pressure 171/90 H 157/91 H 181/100 H Pulse Oximetry 98 98 98 05/03/18 06:40 05/03/18 07:25 05/03/18 08:00 Temperature Pulse Rate 69 Respiratory Rate 18 Blood Pressure 156/82 H 175/110 H Pulse Oximetry 05/03/18 12:00 05/03/18 12:04 05/03/18 16:00 Temperature 97.4 F L Pulse Rate 85 81 Respiratory Rate 18 18 16 Blood Pressure 175/104 H 191/109 H Pulse Oximetry 95 98 Intake & Output 05/02/18 05/03/18 05/03/18 18:59 06:59 18:59 Intake Total 1999 Balance 1999 Weight 73 kg Intake: IV 1999 NS Inj 1,000 ML @ 100 mls/hr IV 1999 .CONT .Q10H [facility] Rx#:[id number] Other: Date of Last Bowel Movement 05/01/18 Result Diagrams: 05/03/18 04:52 05/03/18 04:52 Laboratory Results: Laboratory Results - last 24 hr 05/03/18 05/03/18 05/03/18 04:52 04:52 04:52 WBC 4.3 RBC 3.69 L Hgb 11.7 L Hct 34.4 L MCV 93.2 MCH 31.6 MCHC 33.9 RDW 15.9 Plt Count 91 L MPV 10.2 Prelim Diff (Auto) Slide review pending Neut % (Auto) 64.9 Lymph % (Auto) 20.0 [place] % (Auto) 7.2 Eos % (Auto) 7.0 H Baso % (Auto) 0.9 Neut # (Auto) 2.8 Lymph # (Auto) 0.9 L [place] # (Auto) 0.3 Eos # (Auto) 0.3 Baso # (Auto) 0.0 WBC Differential . Diff Scan Auto diff confirmed Differential Comment . Platelet Estimate Low L Platelet Morphology Normal Sodium 138 Potassium 4.2 Chloride 104 Carbon Dioxide 24.9 Anion Gap 9 BUN 10 Creatinine 0.74 Estimated GFR Greater than 89 Random Glucose 82 Calcium 8.1 L Total Bilirubin 1.2 H AST 104 H ALT 160 H Alkaline Phosphatase 132 H Ammonia 28 Total Protein 6.4 D Albumin 2.8 L Medications: Active Medications Generic Name Dose Route Start Last Admin Trade Name Freq PRN Reason Stop Dose Admin Amlodipine Besylate 5 mg 05/03/18 12:00 05/03/18 12:22 Norvasc PO 5 mg DAILY [facility] Administration Enalaprilat 1.25 mg 05/02/18 01:43 05/03/18 15:30 Vasotec Inj IV.PUSH 1.25 mg Q6H PRN Administration sbp >160 Morphine Sulfate 2 mg 05/01/18 18:40 05/02/18 23:23 Morphine Inj IV.PUSH 2 mg Q4H PRN Administration BREAKTHROUGH PAIN Ondansetron HCl 4 mg 05/01/18 18:39 05/01/18 19:23 Zofran Inj IV.PUSH 4 mg Q8H PRN Administration nausea Oxycodone HCl 5 mg 05/02/18 19:55 05/03/18 10:47 Roxicodone PO 5 mg Q4H PRN Administration pain 1 to 10 Objective Remarks: GENERAL: Chronically ill-appearing male patient, in no acute distress. SKIN: Jaundice, warm and dry. HEAD: Normocephalic. EYES: No scleral icterus. No injection or drainage. NECK: Supple, trachea midline. CARDIOVASCULAR: Regular rate and rhythm without murmurs. RESPIRATORY: Breath sounds equal bilaterally. No accessory muscle use. GASTROINTESTINAL: Abdomen hard, tender, distended. EXTREMITIES: No cyanosis, or edema. MUSCULOSKELETAL: Adequate muscle tone. NEUROLOGICAL: No obvious focal deficit. Awake, alert, and oriented x3. PSYCHIATRIC: Appropriate mood and affect; insight and judgment normal. Assessment/Plan - Plan This is a 63-year-old male patient who presented to the hospital complaining of right upper quadrant pain. CT showed a large right hepatic mass suspicious for neoplasm. Patient underwent liver biopsy. Recommendations: 1. Large right hepatic mass, suspicious for neoplasm. Status post liver biopsy , results pending. Patient also has increased liver enzymes, AFP 16.2 and CA 19 -9, 529. CT chest was negative for masses. 2. Consult case management to arrange oncology follow-up in outpatient clinic. Patient information sent to new patient referrals. He should follow-up with Dr. siddiqui in 1-2 weeks. 3. Await biopsy results. - Attending Statement The exam, history, and the medical decision-making described in the above note were completed with the assistance of the mid-level provider. I reviewed and agree with the findings presented. I attest that I had a [id number] encounter with the patient on the same day, and personally performed and documented my assessment and findings in the medical record. Patient is feeling better. Abdominal pain is controlled. He had biopsy of liver mass yesterday and pathology is pending. Patient can be discharged and follow-up in oncology clinic if trimming caser able to arrange for outpatient follow-up.
[2018-05-03] MEDS ORDERED: Diatrizoate Meglum/Diatrizoate Sod Liq 9 ML UDC PO ONE (17:15)
[2018-05-03] MEDS: hydrALAZINE HCl Inj 20 MG/ML Vial IV.PUSH PRN (18:31)
--- NOTE | 2018-05-03 20:22 | CT ---
EXAM DATE: 05/03/2018 8:12 PM EDT AGE/SEX: 63 years / Male INDICATIONS: Abdominal pain. CLINICAL DATA: This is the patient's initial encounter. Patient reports that signs and symptoms have been present for 1 day and indicates a pain score of 7/10. MEDICAL/SURGICAL HISTORY: . Liver mass. None. ORAL CONTRAST: Prescribed oral contrast ingested. RADIATION DOSE: 8.79 CTDI (mGy) COMPARISON: [facility], CT ABDOMEN & PELVIS W CONTRAST, 05/01/2018. . TECHNIQUE: Multiple contiguous axial images were obtained through the abdomen and pelvis following b olus infusion of 75 ml Omnipaque 350 (iohexol) nonionic water-soluble contrast as a single exam dos e. Prescribed oral contrast ingested. Using automated exposure control and adjustment of the mA and/ or kV according to patient size, radiation dose was kept as low as reasonably achievable to obtain op timal diagnostic quality images. DICOM format image data is available electronically for review and comparison. FINDINGS: Patient has a known large liver mass measuring up to around 19 cm in diameter, unchanged since 23. Again seen is portal vein invasion/thrombosis. Biopsy was performed yesterday. Over the last 2 days there is interval development of small bilateral pleural effusions, slightly larger on the right with basilar atelectasis. There is also a slight increase in ascites in the abdomen and pelvis. No acute findings in the spleen, adrenals, kidneys or pancreas. Stable renal cysts. No free air. No bowel obstruction. No acute bony abnormalities. CONCLUSION: 1. Large liver mass recently biopsied. There is development of small bilateral pleural effusions and slight worsening of ascites. Exam otherwise stable. Electronically signed by: Ezequiel Patel MD 05/03/2018 8:20 PM EDT
[2018-05-03] MEDS: Morphine Sulfate Inj 2 MG/ML Vial IV.PUSH PRN (23:46)
[2018-05-04] MEDS ORDERED: Senna/Docusate Sodium 8.6/50 MG Tablet PO PRN (07:47)
[2018-05-04] MEDS ORDERED: Polyethylene Glycol 3350 17 GM Packet PO PRN (07:47)
--- NOTE | 2018-05-04 07:47 | P.PNONC ---
Subjective Interval history: Patient has mild abdominal discomfort. He remains afebrile. He denies chest pain or shortness of breath. He has not had bowel movement for 2 days. Objective Vital Signs/Intake & Output: Vital Signs 05/03/18 08:00 05/03/18 12:00 05/03/18 12:04 Temperature Pulse Rate 69 85 Respiratory Rate 18 18 Blood Pressure 175/104 H Pulse Oximetry 95 05/03/18 16:00 05/03/18 20:25 05/03/18 20:50 Temperature 97.4 F L 98.3 F Pulse Rate 81 82 80 Respiratory Rate 16 18 Blood Pressure 191/109 H 175/105 H Pulse Oximetry 98 97 05/03/18 21:40 05/03/18 23:39 05/03/18 23:48 Temperature 98.4 F Pulse Rate 85 85 Respiratory Rate 18 18 Blood Pressure 167/99 H 168/100 H Pulse Oximetry 98 05/04/18 00:08 05/04/18 00:59 05/04/18 04:02 Temperature Pulse Rate 72 82 Respiratory Rate 18 Blood Pressure Pulse Oximetry 05/04/18 04:21 05/04/18 04:54 Temperature 98 F Pulse Rate 84 Respiratory Rate 18 18 Blood Pressure 158/91 H Pulse Oximetry 97 Intake & Output 05/03/18 05/04/18 05/04/18 18:59 06:59 18:59 Intake Total 720 / 720 1240 / 1240 Balance 720 / 720 1240 / 1240 Weight 73.8 kg Intake: IV 1000 / 1000 NS Inj 1,000 ML @ 100 mls/hr IV 1000 / 1000 .CONT .Q10H [facility] Rx#:[id number] Oral 720 / 720 240 / 240 Other: # Voids 4 1 Date of Last Bowel Movement 05/03/18 Result Diagrams: 05/03/18 04:52 05/03/18 04:52 Laboratory Results: Laboratory Results - last 24 hr 05/03/18 04:52 WBC Differential . Diff Scan Auto diff confirmed Platelet Estimate Low L Platelet Morphology Normal Imaging Studies: Impressions Abdomen/Pelvis CT 05/03/18 16:55 CONCLUSION: 1. Large liver mass recently biopsied. There is development of small bilateral pleural effusions and slight worsening of ascites. Exam otherwise stable. Medications: Active Medications Generic Name Dose Route Start Last Admin Trade Name Freq PRN Reason Stop Dose Admin Enalaprilat 1.25 mg 05/02/18 01:43 05/03/18 21:00 Vasotec Inj IV.PUSH 1.25 mg Q6H PRN Administration sbp >160 Hydralazine HCl 20 mg 05/03/18 17:14 05/03/18 18:31 Apresoline Inj IV.PUSH 20 mg Q4H PRN Administration HYPERTENSION Morphine Sulfate 2 mg 05/01/18 18:40 05/03/18 23:46 Morphine Inj IV.PUSH 2 mg Q4H PRN Administration BREAKTHROUGH PAIN Ondansetron HCl 4 mg 05/01/18 18:39 05/03/18 23:45 Zofran Inj IV.PUSH 4 mg Q8H PRN Administration nausea Oxycodone HCl 5 mg 05/02/18 19:55 05/04/18 04:24 Roxicodone PO 5 mg Q4H PRN Administration pain 1 to 10 Objective Remarks: GENERAL: Well-nourished, well-developed patient. SKIN: Warm and dry. HEAD: Normocephalic. EYES: No scleral icterus. No injection or drainage. NECK: Supple, trachea midline. No JVD or lymphadenopathy. LYMPHATIC: No adenopathy. CARDIOVASCULAR: Regular rate and rhythm without murmurs. RESPIRATORY: Breath sounds equal bilaterally. No accessory muscle use. GASTROINTESTINAL: Abdomen soft, slightly distended. Mild tenderness right upper quadrant. Right upper quadrant area is firm. Positive bowel sounds. EXTREMITIES: No cyanosis, or edema. MUSCULOSKELETAL: Adequate muscle tone. NEUROLOGICAL: No obvious focal deficit. Awake, alert, and oriented x3. PSYCHIATRIC: Appropriate mood and affect; insight and judgment normal. Assessment/Plan (1) Liver mass, right lobe Code(s): R16.0 - Hepatomegaly, not elsewhere classified Status: Acute (2) Transaminitis Code(s): R74.0 - Nonspecific elevation of levels of transaminase and lactic acid dehydrogenase [LDH] Status: Acute (3) Hyperbilirubinemia Code(s): E80.6 - Other disorders of bilirubin metabolism Status: Acute - Plan This is a 63-year-old male patient who presented to the hospital complaining of right upper quadrant pain. CT showed a large right hepatic mass suspicious for neoplasm. Patient underwent liver biopsy. Recommendations: 1. Large right hepatic mass, suspicious for neoplasm. Status post liver biopsy , results pending. Patient also has increased liver enzymes, AFP 16.2 and CA 19 -9, 529. CT chest was negative for masses. He has repeat CT of the abdomen pelvis May 03 which showed slight increased ascites and small bilateral pleural effusion. GI workup so far showed possible hepatitis C infection. 2. Consult case management to arrange oncology follow-up in outpatient clinic. Patient information sent to new patient referrals. He should follow-up with Dr. siddiqui in 1-2 weeks. 3. Await biopsy results. 4. Constipation due to opiate. We will add stool softener.
[2018-05-04 08:11] LABS: Baso # (Auto) 0.1 th/mm3 (0.0-0.2); Baso % (Auto) 1.2 % (0.0-2.0); Eos # (Auto) 0.4 th/mm3 (0.0-0.4); Eos % (Auto) 8.4 % (0.0-4.0); Hematocrit 34.8 % (39.0-51.0); Hemoglobin 11.7 gm/dL (13.0-17.0); Lymph # (Auto) 0.8 th/mm3 (1.0-4.8); Lymph % (Auto) 18.2 % (9.0-44.0); Mean Corpuscular HGB Conc 33.5 % (32.0-36.0); Mean Corpuscular Hemoglobin 31.3 pg (27.0-34.0); Mean Corpuscular Volume 93.2 fL (80.0-100.0); Mean Platelet Volume 10.3 fL (7.0-11.0); Mono # (Auto) 0.4 th/mm3 (0.0-0.9); Mono % (Auto) 8.1 % (0.0-8.0); Neut % (Auto) 64.1 % (16.0-70.0); Platelet Count 102 th/mm3 (150-450); Red Blood Count 3.74 mil/mm3 (4.50-5.90); Red Cell Distribution Width 16.2 % (11.6-17.2); White Blood Count 4.7 th/mm3 (4.0-11.0)
[2018-05-04] MEDS: amLODIPine 10 MG Tablet PO SCH (08:43)
[2018-05-04 08:46] LABS: Anion Gap 8 meq/L (5-15); Blood Urea Nitrogen 6 mg/dL (7-18); Calcium 8.4 mg/dL (8.5-10.1); Carbon Dioxide 26.4 meq/L (21.0-32.0); Chloride 101 meq/L (98-107); Glomerular Filtration Rate Greater Than 89 mL/min (>89); Glucose,Random 83 mg/dL (74-106); Potassium 3.9 meq/L (3.5-5.1); Sodium 135 meq/L (136-145)
[2018-05-04 11:07] VITALS: RESP 18
[2018-05-04] MEDS: hydrALAZINE HCl Inj 20 MG/ML Vial IV.PUSH PRN ×2 (11:08→19:42)
--- NOTE | 2018-05-04 12:43 | P.PNGI ---
Subjective Interval history: Patient sitting up in bed eating lunch meal. Denies any nausea or vomiting, reports intermittent right upper quadrant pain controlled by pain medications administered. <BeaverKamala - Last Filed: 05/04/18 12:37> Physical Exam Vital signs: Vital Signs 05/03/18 16:00 05/03/18 20:25 05/03/18 20:50 Temperature 97.4 F L 98.3 F Pulse Rate 81 82 80 Respiratory Rate 16 18 Blood Pressure 191/109 H 175/105 H Pulse Oximetry 98 97 05/03/18 21:40 05/03/18 23:39 05/03/18 23:48 Temperature 98.4 F Pulse Rate 85 85 Respiratory Rate 18 18 Blood Pressure 167/99 H 168/100 H Pulse Oximetry 98 05/04/18 00:08 05/04/18 00:59 05/04/18 04:02 Temperature Pulse Rate 72 82 Respiratory Rate 18 Blood Pressure Pulse Oximetry 05/04/18 04:21 05/04/18 04:54 05/04/18 08:00 Temperature 98 F 98.4 F Pulse Rate 84 92 H Respiratory Rate 18 18 20 Blood Pressure 158/91 H 160/94 H Pulse Oximetry 97 96 05/04/18 11:07 Temperature 98.7 F Pulse Rate 80 Respiratory Rate 18 Blood Pressure 161/97 H Pulse Oximetry 98 Intake & Output 05/03/18 05/04/18 05/04/18 18:59 06:59 18:59 Intake Total 720 / 720 1240 / 1240 Balance 720 / 720 1240 / 1240 Weight 73.8 kg Intake: IV 1000 / 1000 NS Inj 1,000 ML @ 100 mls/hr IV 1000 / 1000 .CONT .Q10H [facility] Rx#:[id number] Oral 720 / 720 240 / 240 Other: # Voids 4 1 Date of Last Bowel Movement 05/03/18 05/02/18 - Constitutional no acute distress - Routine HEENT Exam Head: Present: normocephalic - Routine Respiratory Exam Present: CTA bilaterally. Absent: accessory muscle use - Routine Cardiovascular Exam Present: RRR - Routine Abdominal Exam Present: soft, normoactive bowel sounds, tenderness, distended. Absent: guarding, firm Comments: Right upper quadrant tenderness mild on palpation - Routine Extremities Exam Present: full ROM. Absent: edema - Routine Skin Exam Present: dry, warm - Routine Neurological Exam Present: alert, oriented X3 - Routine Psychiatric Exam Present: normal affect, cooperative <Kamala Beaver - Last Filed: 05/04/18 12:37> Vital signs: Vital Signs 05/03/18 20:25 05/03/18 20:50 05/03/18 21:40 Temperature 98.3 F Pulse Rate 82 80 85 Respiratory Rate 18 Blood Pressure 175/105 H 167/99 H Pulse Oximetry 97 05/03/18 23:39 05/03/18 23:48 05/04/18 00:08 Temperature 98.4 F Pulse Rate 85 72 Respiratory Rate 18 18 Blood Pressure 168/100 H Pulse Oximetry 98 05/04/18 00:59 05/04/18 04:02 05/04/18 04:21 Temperature 98 F Pulse Rate 82 84 Respiratory Rate 18 18 Blood Pressure 158/91 H Pulse Oximetry 97 05/04/18 04:54 05/04/18 08:00 05/04/18 11:07 Temperature 98.4 F 98.7 F Pulse Rate 92 H 80 Respiratory Rate 18 20 18 Blood Pressure 160/94 H 161/97 H Pulse Oximetry 96 98 05/04/18 12:00 05/04/18 13:52 05/04/18 15:53 Temperature 98.7 F Pulse Rate 113 H 108 H 92 H Respiratory Rate 18 18 Blood Pressure 157/87 H 153/86 H Pulse Oximetry 97 95 05/04/18 16:00 Temperature Pulse Rate 92 H Respiratory Rate Blood Pressure Pulse Oximetry Intake & Output 05/03/18 05/04/18 05/04/18 18:59 06:59 18:59 Intake Total 720 / 720 1240 / 1240 Balance 720 / 720 1240 / 1240 Weight 73.8 kg Intake: IV 1000 / 1000 NS Inj 1,000 ML @ 100 mls/hr IV 1000 / 1000 .CONT .Q10H [facility] Rx#:[id number] Oral 720 / 720 240 / 240 Other: # Voids 4 1 Date of Last Bowel Movement 05/03/18 05/02/18 <Jeff Martins E - Last Filed: 05/04/18 17:14> Results - Labs CBC & Chem 7: 05/04/18 06:13 05/04/18 06:13 Laboratory Results - last 24 hr 05/04/18 05/04/18 06:13 06:13 WBC 4.7 RBC 3.74 L Hgb 11.7 L Hct 34.8 L MCV 93.2 MCH 31.3 MCHC 33.5 RDW 16.2 Plt Count 102 L MPV 10.3 Neut % (Auto) 64.1 Lymph % (Auto) 18.2 [place] % (Auto) 8.1 H Eos % (Auto) 8.4 H Baso % (Auto) 1.2 Neut # (Auto) 3.0 Lymph # (Auto) 0.8 L [place] # (Auto) 0.4 Eos # (Auto) 0.4 Baso # (Auto) 0.1 WBC Differential . Differential Comment Auto diff final Sodium 135 L Potassium 3.9 Chloride 101 Carbon Dioxide 26.4 Anion Gap 8 BUN 6 L Creatinine 0.69 Estimated GFR Greater than 89 Random Glucose 83 Calcium 8.4 L - Imaging Impressions Abdomen/Pelvis CT 05/03/18 16:55 CONCLUSION: 1. Large liver mass recently biopsied. There is development of small bilateral pleural effusions and slight worsening of ascites. Exam otherwise stable. - Procedures CT guided Liver Biopsy <Kamala Beaver - Last Filed: 05/04/18 12:37> - Labs CBC & Chem 7: 05/04/18 06:13 05/04/18 06:13 Laboratory Results - last 24 hr 05/03/18 05/04/18 05/04/18 04:52 06:13 06:13 WBC 4.7 RBC 3.74 L Hgb 11.7 L Hct 34.8 L MCV 93.2 MCH 31.3 MCHC 33.5 RDW 16.2 Plt Count 102 L MPV 10.3 Neut % (Auto) 64.1 Lymph % (Auto) 18.2 [place] % (Auto) 8.1 H Eos % (Auto) 8.4 H Baso % (Auto) 1.2 Neut # (Auto) 3.0 Lymph # (Auto) 0.8 L [place] # (Auto) 0.4 Eos # (Auto) 0.4 Baso # (Auto) 0.1 WBC Differential . Differential Comment Auto diff final Sodium 135 L Potassium 3.9 Chloride 101 Carbon Dioxide 26.4 Anion Gap 8 BUN 6 L Creatinine 0.69 Estimated GFR Greater than 89 Random Glucose 83 Calcium 8.4 L Anti-Smooth Muscle Ab Negative - Imaging Impressions Abdomen/Pelvis CT 05/03/18 16:55 CONCLUSION: 1. Large liver mass recently biopsied. There is development of small bilateral pleural effusions and slight worsening of ascites. Exam otherwise stable. <Jeff Martins - Last Filed: 05/04/18 17:14> Assessment and Plan (1) Liver mass, right lobe Status: Acute Code(s): R16.0 - Hepatomegaly, not elsewhere classified (2) Transaminitis Status: Acute Code(s): R74.0 - Nonspecific elevation of levels of transaminase and lactic acid dehydrogenase [LDH] (3) Hyperbilirubinemia Status: Acute Code(s): E80.6 - Other disorders of bilirubin metabolism - Plan 05/04/2018 Transaminitis/hyperbilirubinemia/liver mass Liver pathology pending-biopsy done 05/02/2018 Hemoglobin 11.7 hematocrit 34.8 platelet count 102. (05/03) total bilirubin 1.2 AST 104 ALT 160 alk phos 132 ammonia 28 albumin 2.8 Plan -Diet as tolerated -Awaiting liver biopsy pathology -Continue to monitor liver function tests -Avoid hepatotoxins -Analgesia as per attending -Supportive care -Further recommendations to follow This patient has been seen by myself and Dr. Martins and this note is written on his behalf - Attending Attestation Dr. Martins <Kamala Beaver - Last Filed: 05/04/18 12:37> (1) Liver mass, right lobe Status: Acute Code(s): R16.0 - Hepatomegaly, not elsewhere classified (2) Transaminitis Status: Acute Code(s): R74.0 - Nonspecific elevation of levels of transaminase and lactic acid dehydrogenase [LDH] (3) Hyperbilirubinemia Status: Acute Code(s): E80.6 - Other disorders of bilirubin metabolism - Plan Patient seen and examined Agree with above history and physical Continue with current supportive care Monitor labs Liver biopsy has come back showing hepatocellular carcinoma on the background of cirrhosis At this point we will defer to oncology for further evaluation and treatment Not much to add from a GI perspective we will sign off <Jeff Martins - Last Filed: 05/04/18 17:14>
--- NOTE | 2018-05-04 13:38 | P.PN ---
Subjective Interval history: This is a pleasant 63 y/o Male who has a Large Liver mass, neonatal specialist following, CT showed large 20 cm mass replacing the right hepatic lobe, CA19-9 elevated 52.9, CEA normal 2.5, asked for CT chest, Liver mass Biopsy, GI specialist following. status post Liver biopsy 05/02/1805/03: Seen in his bedroom complaint of abdominal distention, he had Liver biopsy yesterday, I have been called later by nurse Brigitte Shiv the patient is been worsening, discussed with nurse, and Jig Worker will tr to give the patient a blue Card for Insurance and try to help him to get follow up as outpatient, he continue Hypertensive, he is eating and drinking properly were removed IV fluids. 05/04: Stable in his bedroom, negative CT abdomen performed yesterday, improving his abdominal distention, no nausea, vomit or diarrhea Physical Exam Vital signs: Vital Signs 05/03/18 16:00 05/03/18 20:25 05/03/18 20:50 Temperature 97.4 F L 98.3 F Pulse Rate 81 82 80 Respiratory Rate 16 18 Blood Pressure 191/109 H 175/105 H Pulse Oximetry 98 97 05/03/18 21:40 05/03/18 23:39 05/03/18 23:48 Temperature 98.4 F Pulse Rate 85 85 Respiratory Rate 18 18 Blood Pressure 167/99 H 168/100 H Pulse Oximetry 98 05/04/18 00:08 05/04/18 00:59 05/04/18 04:02 Temperature Pulse Rate 72 82 Respiratory Rate 18 Blood Pressure Pulse Oximetry 05/04/18 04:21 05/04/18 04:54 05/04/18 08:00 Temperature 98 F 98.4 F Pulse Rate 84 92 H Respiratory Rate 18 18 20 Blood Pressure 158/91 H 160/94 H Pulse Oximetry 97 96 05/04/18 11:07 05/04/18 12:00 Temperature 98.7 F Pulse Rate 80 113 H Respiratory Rate 18 Blood Pressure 161/97 H Pulse Oximetry 98 Intake & Output 05/03/18 05/04/18 05/04/18 18:59 06:59 18:59 Intake Total 720 / 720 1240 / 1240 Balance 720 / 720 1240 / 1240 Weight 73.8 kg Intake: IV 1000 / 1000 NS Inj 1,000 ML @ 100 mls/hr IV 1000 / 1000 .CONT .Q10H [facility] Rx#:[id number] Oral 720 / 720 240 / 240 Other: # Voids 4 1 Date of Last Bowel Movement 05/03/18 05/02/18 Narrative: GENERAL: No acute distress. SKIN: Warm and dry. HEAD: Normocephalic. EYES: No scleral icterus. No injection or drainage. NECK: Supple, trachea midline. No JVD. CARDIOVASCULAR: Regular rate and rhythm without murmurs, gallops, or rubs. RESPIRATORY: Breath sounds equal bilaterally. No accessory muscle use. GASTROINTESTINAL: soft, mild tenderness on right upper quadrant. MUSCULOSKELETAL: No cyanosis, or edema. BACK: Nontender without obvious deformity. No CVA tenderness. Results - Labs CBC & Chem 7: 05/04/18 06:13 05/04/18 06:13 Laboratory Results - last 24 hr 05/04/18 05/04/18 06:13 06:13 WBC 4.7 RBC 3.74 L Hgb 11.7 L Hct 34.8 L MCV 93.2 MCH 31.3 MCHC 33.5 RDW 16.2 Plt Count 102 L MPV 10.3 Neut % (Auto) 64.1 Lymph % (Auto) 18.2 [place] % (Auto) 8.1 H Eos % (Auto) 8.4 H Baso % (Auto) 1.2 Neut # (Auto) 3.0 Lymph # (Auto) 0.8 L [place] # (Auto) 0.4 Eos # (Auto) 0.4 Baso # (Auto) 0.1 WBC Differential . Differential Comment Auto diff final Sodium 135 L Potassium 3.9 Chloride 101 Carbon Dioxide 26.4 Anion Gap 8 BUN 6 L Creatinine 0.69 Estimated GFR Greater than 89 Random Glucose 83 Calcium 8.4 L - Imaging Impressions Abdomen/Pelvis CT 05/03/18 16:55 CONCLUSION: 1. Large liver mass recently biopsied. There is development of small bilateral pleural effusions and slight worsening of ascites. Exam otherwise stable. - Procedures CT guided Liver Biopsy Assessment and Plan - Plan 63 y/o male with a no medical history presented to the ED with DEMI abdominal pain for 2 days. Liver mass with transaminitis AST 119, alt [address] reviewed and shows a large liver mass with portal vein invasion -neonatal specialist following, CT showed large 20 cm mass replacing the right hepatic lobe, CA19-9 elevated 52.9, CEA normal 2.5, asked for CT chest, Liver mass Biopsy Performed awaiting for pathology result GI specialist following, CT abd and Pelvis negative for acute pathology, improved his abdominal distention awaiting for liver biopsy result by GI and Oncology. Hypertension Uncontrolled continue management. -Vasotec iv prn = Continue hydralazine as needed, and Amlodipine 10 mg daily and added HCTZ 12.5 mg daily. DVT prophylaxis: SCDs Code Status: Full code. Discussed Condition With: Patient and Nurse Miss Sigala Discharge Planning: once cleared by specialists.
[2018-05-04 14:01] LABS: Smooth Muscle Total Auto Abs Negative (Negative)
[2018-05-04 19:53] LABS: Ceruloplasmin 30 mg/dL (18-36)
[2018-05-05 08:30] VITALS: O2SAT 97
[2018-05-05] MEDS: amLODIPine 10 MG Tablet PO SCH (08:32)
--- NOTE | 2018-05-05 10:42 | P.PN ---
Subjective Interval history: This is a pleasant 63 y/o Male who has a Large Liver mass, alignment specialist following, CT showed large 20 cm mass replacing the right hepatic lobe, CA19-9 elevated 52.9, CEA normal 2.5, asked for CT chest, Liver mass Biopsy, GI specialist following. status post Liver biopsy 05/02/1805/03: Seen in his bedroom complaint of abdominal distention, he had Liver biopsy yesterday, I have been called later by nurse Brigitte Shiv the patient is been worsening, discussed with nurse, and Billiard Table Assembler will tr to give the patient a blue Card for Insurance and try to help him to get follow up as outpatient, he continue Hypertensive, he is eating and drinking properly were removed IV fluids. 05/04: Stable in his bedroom, negative CT abdomen performed yesterday, improving his abdominal distention, 05/05: patient stable as per GI specialist and Oncology okay to discharge Home and follow as outpatient to discuss Pathology results, given follow up for both physicians, no nausea, vomit or diarrhea, blood pressure initially elevated adjusted Blood pressure medicine now improving will go home now. Physical Exam Vital signs: Vital Signs 05/04/18 11:07 05/04/18 12:00 05/04/18 13:52 Temperature 98.7 F Pulse Rate 80 113 H 108 H Respiratory Rate 18 18 Blood Pressure 161/97 H 157/87 H Pulse Oximetry 98 97 05/04/18 15:53 05/04/18 16:00 05/04/18 20:00 Temperature 98.7 F 98.5 F Pulse Rate 92 H 92 H 89 Respiratory Rate 18 20 Blood Pressure 153/86 H 170/91 H Pulse Oximetry 95 96 05/05/18 00:00 05/05/18 04:00 05/05/18 07:00 Temperature 98.1 F 97.5 F L Pulse Rate 92 H 94 H 74 Respiratory Rate 18 Blood Pressure 169/93 H 163/94 H Pulse Oximetry 94 L 05/05/18 08:25 Temperature 97.9 F Pulse Rate 83 Respiratory Rate 18 Blood Pressure 148/85 H Pulse Oximetry 97 Intake & Output 05/04/18 05/05/18 05/05/18 18:59 06:59 18:59 Intake Total 1560 / 1560 480 / 480 Balance 1560 / 1560 480 / 480 Weight 76.5 kg Intake: Oral 1560 / 1560 480 / 480 Other: # Voids 6 4 Date of Last Bowel Movement 05/04/18 05/04/18 05/04/18 # Bowel Movements 1 Narrative: GENERAL: No acute distress. SKIN: Warm and dry. HEAD: Normocephalic. EYES: No scleral icterus. No injection or drainage. NECK: Supple, trachea midline. No JVD. CARDIOVASCULAR: Regular rate and rhythm without murmurs, gallops, or rubs. RESPIRATORY: Breath sounds equal bilaterally. No accessory muscle use. GASTROINTESTINAL: soft, mild tenderness on right upper quadrant. MUSCULOSKELETAL: No cyanosis, or edema. BACK: Nontender without obvious deformity. No CVA tenderness. Results - Labs CBC & Chem 7: 05/04/18 06:13 05/04/18 06:13 Laboratory Results - last 24 hr 05/03/18 04:52 Ceruloplasmin 30 Anti-Smooth Muscle Ab Negative - Imaging Chest CT 05/02/18 00:00 CONCLUSION: 1. Patchy airspace consolidation in the extreme lung bases bilaterally, likely reflecting atelectasis. 2. Trace right pleural effusion. 3. Coronary artery calcifications. 4. Re-demonstration of large infiltrative hepatic mass and trace ascites in the upper abdomen. Liver Biopsy CT 05/02/18 00:00 CONCLUSION: Uncomplicated CT guided core biopsy of large right lobe liver mass as above. Abdomen/Pelvis CT 05/03/18 16:55 CONCLUSION: 1. Large liver mass recently biopsied. There is development of small bilateral pleural effusions and slight worsening of ascites. Exam otherwise stable. - Procedures CT guided Liver Biopsy Assessment and Plan - Plan 63 y/o male with a no medical history presented to the ED with DEMI abdominal pain for 2 days. Liver mass with transaminitis AST 119, alt [address] reviewed and shows a large liver mass with portal vein invasion -alignment specialist following, CT showed large 20 cm mass replacing the right hepatic lobe, CA19-9 elevated 52.9, CEA normal 2.5, asked for CT chest, Liver mass Biopsy Performed awaiting for pathology result GI specialist following, CT abd and Pelvis negative for acute pathology, improved his abdominal distention okay to discharge as per GI specialist and Oncology will go home and follow as outpatient for his pathology result. Hypertension controlled after adjusted his regimen. -Vasotec iv prn DVT prophylaxis: SCDs Code Status: Full code. Discussed Condition With: patient and Nurse miss Menardwni. Discharge Planning: Discharge Home now.
[2018-05-05 11:17] VITALS: PULSE 79; TEMP 98.7
[2018-05-05] MEDS ORDERED: Lisinopril 20 MG Tablet PO SCH (12:00)
[2018-05-05 14:05] VITALS: BP 135/82
--- NOTE | 2018-05-05 14:39 | P.DS ---
Date of admission: 05/01/18 18:45 Primary care physician: No Primary Care Physician Attending physician on discharge: Yo Swan Anticipated date of discharge: 05/05/18 Brief History from admission: 63 y/o male with a no medical history presented to the ED with DEMI abdominal pain for 2 days. He states he has been having sharp, stabbing RUQ pain with no radiation or associated nausea or vomiting. He denies any weightless or decreased appetite. DS: Diagnosis - Discharge Diagnosis (1) Liver mass, right lobe Status: Acute (2) Transaminitis Status: Acute DS: Summary Hospital Course: This is a pleasant 63 y/o Male who has a Large Liver mass, medicare insurance specialist following, CT showed large 20 cm mass replacing the right hepatic lobe, CA19-9 elevated 52.9, CEA normal 2.5, asked for CT chest, Liver mass Biopsy, GI specialist following. status post Liver biopsy 05/02/1805/03: Seen in his bedroom complaint of abdominal distention, he had Liver biopsy yesterday, I have been called later by nurse Brigitte Shiv the patient is been worsening, discussed with nurse, and Supervisor [employer] will tr to give the patient a blue Card for Insurance and try to help him to get follow up as outpatient, he continue Hypertensive, he is eating and drinking properly were removed IV fluids. 05/04: Stable in his bedroom, negative CT abdomen performed yesterday, improving his abdominal distention, 05/05: patient stable as per GI specialist and Oncology okay to discharge Home and follow as outpatient to discuss Pathology results, given follow up for both physicians, no nausea, vomit or diarrhea, blood pressure initially elevated adjusted Blood pressure medicine now improving will go home now. Results - Labs CBC & Chem 7: 05/04/18 06:13 05/04/18 06:13 Laboratory Results - last 24 hr 05/03/18 04:52 Ceruloplasmin 30 Anti-Smooth Muscle Ab Negative Assessment and Plan - Plan 63 y/o male with a no medical history presented to the ED with DEMI abdominal pain for 2 days. Liver mass with transaminitis AST 119, alt [address] reviewed and shows a large liver mass with portal vein invasion -medicare insurance specialist following, CT showed large 20 cm mass replacing the right hepatic lobe, CA19-9 elevated 52.9, CEA normal 2.5, asked for CT chest, Liver mass Biopsy Performed awaiting for pathology result GI specialist following, CT abd and Pelvis negative for acute pathology, improved his abdominal distention okay to discharge as per GI specialist and Oncology will go home and follow as outpatient for his pathology result. Hypertension controlled after adjusted his regimen. -Vasotec iv prn DVT prophylaxis: SCDs Code Status: Full code. Discussed Condition With: patient and Nurse miss Gillette. Discharge Planning: Discharge Home now. - Time Spent with Patient Total time spent providing and/or coordinating discharge services: Less than 30 minutes - Quality: VTE Deep Vein Thrombosis/Pulmonary Embolism Present on Admission: No Exam Vital signs: Vital Signs 05/04/18 15:53 05/04/18 16:00 05/04/18 20:00 Temperature 98.7 F 98.5 F Pulse Rate 92 H 92 H 89 Respiratory Rate 18 20 Blood Pressure 153/86 H 170/91 H Pulse Oximetry 95 96 05/05/18 00:00 05/05/18 04:00 05/05/18 07:00 Temperature 98.1 F 97.5 F L Pulse Rate 92 H 94 H 74 Respiratory Rate 18 Blood Pressure 169/93 H 163/94 H Pulse Oximetry 94 L 05/05/18 08:25 05/05/18 11:01 05/05/18 11:14 Temperature 97.9 F 98.7 F Pulse Rate 83 83 79 Respiratory Rate 18 18 Blood Pressure 148/85 H 160/93 H Pulse Oximetry 97 97 05/05/18 14:05 Temperature Pulse Rate Respiratory Rate Blood Pressure 135/82 Pulse Oximetry Intake & Output 05/04/18 05/05/18 05/05/18 18:59 06:59 18:59 Intake Total 1560 / 1560 480 / 480 Balance 1560 / 1560 480 / 480 Weight 76.5 kg Intake: Oral 1560 / 1560 480 / 480 Other: # Voids 6 4 Date of Last Bowel Movement 05/04/18 05/04/18 05/04/18 # Bowel Movements 1 Narrative: GENERAL: No acute distress. SKIN: Warm and dry. HEAD: Normocephalic. EYES: No scleral icterus. No injection or drainage. NECK: Supple, trachea midline. No JVD. CARDIOVASCULAR: Regular rate and rhythm without murmurs, gallops, or rubs. RESPIRATORY: Breath sounds equal bilaterally. No accessory muscle use. GASTROINTESTINAL: soft, mild tenderness on right upper quadrant. MUSCULOSKELETAL: No cyanosis, or edema. BACK: Nontender without obvious deformity. No CVA tenderness. Results Procedures completed during hospitalization: CT guided Liver Biopsy Labs on day of discharge: Labs from last 24 hours 05/03/18 04:52 Ceruloplasmin 30 Rheumatoid Factor Less than 14 - Impressions Chest CT 05/02/18 00:00 CONCLUSION: 1. Patchy airspace consolidation in the extreme lung bases bilaterally, likely reflecting atelectasis. 2. Trace right pleural effusion. 3. Coronary artery calcifications. 4. Redemonstration of large infiltrative hepatic mass and trace ascites in the upper abdomen. Liver Biopsy CT 05/02/18 00:00 CONCLUSION: Uncomplicated CT guided core biopsy of large right lobe liver mass as above. Abdomen/Pelvis CT 05/03/18 16:55 CONCLUSION: 1. Large liver mass recently biopsied. There is development of small bilateral pleural effusions and slight worsening of ascites. Exam otherwise stable. Discharge Plan - Discharge Disposition Patient Disposition: Discharge Home - Discharge Condition Condition: Stable - Discharge Order Discharge Orders: Discharge Order (Routine); Ordered 05/05/18 Ordered By: Yo Swan - Discharge Details Anticipated Discharge Date: 05/05/18 Discharge Comment: Follow up with PCP in three days - Physicians Team Primary Care Provider: Primary Care Physici,No Attending Provider: Yo Swan Other Providers: Brady Mcghee MD ; Jeff Martins MD
[2018-05-07 09:50] LABS: Hepatitis C RNA (PCR) IUs/ml 12500 IU/mL
[2018-05-07 17:51] LABS: DS DNA Ab (Crithidia) NEGATIVE (NEGATIVE)
[2018-05-07 17:51] LABS: HCV Genotype 1a (Not Detecte)
== END 2018-05-05 15:27 | disposition home or self-care (01) ==
LOC: PHEFT 15:30 → PHEDH 18:45 → HCIN 05-02 00:23
PROVIDERS: ADMIT Internal Medicine; ATTEND Internal Medicine

== ENCOUNTER 2018-06-18 07:35 | Inpatient (IN) ==
[2018-06-18 08:36] LABS: Baso % (Auto) 0.5 % (0.0-2.0); Eos # (Auto) 0.3 th/mm3 (0.0-0.4); Eos % (Auto) 4.1 % (0.0-4.0); Hematocrit 31.6 % (39.0-51.0); Hemoglobin 11.4 gm/dL (13.0-17.0); Lymph # (Auto) 2.4 th/mm3 (1.0-4.8); Lymph % (Auto) 29.8 % (9.0-44.0); Mean Corpuscular Hemoglobin 31.8 pg (27.0-34.0); Mean Corpuscular Volume 88.1 fL (80.0-100.0); Mean Platelet Volume 8.8 fL (7.0-11.0); Mono # (Auto) 0.3 th/mm3 (0.0-0.9); Mono % (Auto) 3.3 % (0.0-8.0); Neut % (Auto) 62.3 % (16.0-70.0); Platelet Count 147 th/mm3 (150-450); Red Blood Count 3.59 mil/mm3 (4.50-5.90); Red Cell Distribution Width 16.9 % (11.6-17.2)
[2018-06-18 08:40] LABS: Mean Corpuscular HGB Conc 36.1 % (32.0-36.0)
[2018-06-18 08:44] LABS: Activated Partial Thrombo Time 37.3 sec (23.4-31.7); INR 1.3 Ratio; Prothrombin Time 12.7 sec (9.8-11.6)
[2018-06-18 08:55] LABS: Alanine Aminotransferase 295 U/L (12-78); Albumin 2.9 g/dL (3.4-5.0); Alkaline Phosphatase 149 U/L (45-117); Anion Gap 11 meq/L (5-15); Aspartate Aminotransferase 277 U/L (15-37); Blood Urea Nitrogen 11 mg/dL (7-18); Calcium 8.4 mg/dL (8.5-10.1); Carbon Dioxide 24.3 meq/L (21.0-32.0); Chloride 75 meq/L (98-107); Glomerular Filtration Rate Greater Than 89 mL/min (>89); Glucose,Random 100 mg/dL (74-106); Potassium 3.8 meq/L (3.5-5.1); Total Protein 6.9 g/dL (6.4-8.2)
[2018-06-18 09:00] LABS: Sodium 110 meq/L (136-145)
[2018-06-18] MEDS ORDERED: Bisacodyl 10 MG Supp RECTAL PRN (09:37)
[2018-06-18] MEDS ORDERED: Sod Chloride 0.9% Inj 1,000 ML IV.CONT SCH (09:45)
[2018-06-18 10:16] LABS: Target Cells 1+
--- NOTE | 2018-06-18 11:43 | P.HPIM ---
History of Present Illness Primary Care Physician: Kayla Ambriz Chief Complaint: They cancel my procedure History of Present Illness: 63-year-old white male with a history of hepatocellular carcinoma, hepatitis C, hypertension who was originally scheduled for interventional radiology for mapping for radial embolization when he was found to have a low sodium today at 110. This was changed from May lab work in which his sodium was 129 and again sodium 120 at June 13. Currently, patient denies any headaches, confusion, nor any previous seizure activity. He has chronic right upper quadrant abdominal pain which is controlled with home morphine and breakthrough oxycodone. He does take hydrochlorothiazide on a daily basis as prescribed. He reports no changes with his abdominal distention. He is urinating without any difficulty. He also reports his chronic swelling of his legs not worse. Diagnosis (1) Hyponatremia: Inpatient Certification Inpatient Certification: I certify that the inpatient services were ordered in accordance with Medicare regulations governing the order. This includes certification that hospital inpatient services are reasonable and necessary and in the case of services not specified as inpatient-only under 42 CFR 419.22(n), that they are appropriately provided as inpatient services in accordance to with the 2-midnight benchmark under 43 CFR 412.3(e) Estimated Total Length of Stay (Days): 3 Plans for Post Hospital Care: Home Review of Systems Constitutional: Reports as per HPI, Denies chills, Reports fatigue, Denies fever (s), Denies headache(s) and Denies poor appetite Eyes: Denies blurry vision, Denies change in vision and Denies eye pain Ears, Nose, Mouth, and Throat: Denies abnormal hearing, Denies headache(s), Denies mouth pain, Denies nasal congestion, Denies neck pain and Denies sore throat Cardiovascular: Denies chest pain, Reports pedal edema, Denies palpitations and Denies dyspnea Respiratory: Denies cough and Denies dyspnea Gastrointestinal: Reports as per HPI, Reports abdominal pain, Denies constipation, Denies loose stools, Denies nausea and Denies vomiting Musculoskeletal: Denies back pain, Denies myalgias, Denies arthralgias, Denies neck pain and Denies numbness Skin/Breast: Denies new lesions and Denies rash Neurologic: Denies abnormal hearing, Denies headache(s), Denies focal weakness, Denies memory loss and Denies numbness Psychiatric: Denies anxiety, Denies depression and Denies memory loss Endocrine: Denies cold intolerance, Denies heat intolerance and Denies palpitations Hematologic/Lymphatic: Denies easy bleeding and Reports easy bruising PMFSH History History Provided By: Patient Medical History Medical History Hepatitis C (Chronic) Hepatocellular carcinoma (Chronic) Hypertension (Chronic) Patient denies medical problems (Acute) Neck pain (Chronic) Surgical History Surgical History History of liver biopsy (Chronic) No history of previous surgery (Acute) Family History Family History Sister Family history of breast cancer Father Family history of cancer Throat cancer Mother Lung cancer Social History Social History Substance History: No History of Abuse Second Hand Smoke Exposure: Yes Smoking Status: Current every day smoker Tobacco Type: Cigarettes Packs Per Day: 1 Cigarettes Per Day: 20.0 How Often Do You Have a Drink Containing Alcohol: Never Medications and Allergies Allergies Allergy/AdvReac Type Severity Reaction Status Date / Time No Known Allergies Allergy Verified 06/18/18 07:55 Home Medications Medication Instructions Recorded Confirmed Type morphine 30 mg PO Q12H 06/18/18 06/18/18 History oxycodone 10 mg PO Q4-6H PRN 06/18/18 06/18/18 History potassium chloride 10 meq PO BID 06/18/18 06/18/18 History Active Medications: Active Medications Al Hydroxide/Mg Hydroxide (Milk Of Magnesia Liq) 30 ml PO Q12H PRN PRN Reason: Mild Constipation Bisacodyl (Dulcolax Supp) 10 mg RECTAL DAILY PRN PRN Reason: SEVERE CONSITIPATION Sodium Chloride (Ns Inj) 1,000 mls @ 75 mls/hr IV.CONT .[id number] WILL Stop: 06/18/18 23:04 Last Admin: 06/18/18 10:50 Dose: 75 mls/hr Lactulose (Lactulose Liq) 30 ml PO DAILY PRN PRN Reason: SEVERE CONSITIPATION Lisinopril (Prinivil) 20 mg PO DAILY [facility] Morphine Sulfate (Oramorph Sr) 30 mg PO Q12H WILL Ondansetron HCl (Zofran Inj) 4 mg IV.PUSH Q6H PRN PRN Reason: NAUSEA OR VOMITING Oxycodone HCl (Roxicodone) 10 mg PO Q6H PRN PRN Reason: Pain 3-10 Last Admin: 12/10/18 10:30 Dose: 10 mg Sennosides (Senokot) 17.2 mg PO Q12H PRN PRN Reason: Moderate Constipation Sodium Chloride (Ns Flush) 2 ml IV.FLUSH BID WILL Sodium Chloride (Ns Flush) 2 ml IV.FLUSH PRN PRN PRN Reason: FLUSH AFTER USING IV ACCESS Physical Exam Vital signs: Last Vital Signs Temp 97 F L 06/18/18 08:08 Pulse 84 06/18/18 08:08 Resp 20 06/18/18 08:08 BP 150/88 H 06/18/18 08:08 Pulse Ox 95 06/18/18 08:08 Intake & Output 06/16/18 06/17/18 06/18/18 06/19/18 06:59 06:59 06:59 06:59 Weight 74.843 kg Narrative: GENERAL: Well-nourished well-developed white male no acute distress SKIN: Warm and dry. Some reddish plaques over the left anterior mid lower leg area HEAD: Atraumatic. Normocephalic. EYES: Pupils equal and round. No scleral icterus. No injection or drainage. ENT: No nasal bleeding or discharge. Mucous membranes pink and moist. NECK: Trachea midline. No JVD. CARDIOVASCULAR: Regular rate and rhythm. RESPIRATORY: No accessory muscle use. Clear to auscultation. Breath sounds equal bilaterally. GASTROINTESTINAL: Abdomen soft, mild distention with mild right upper quadrant tenderness with no rebound or guarding. Normoactive bowel sounds MUSCULOSKELETAL: Extremities without clubbing, cyanosis, 1+ pitting edema no obvious deformities. NEUROLOGICAL: Awake and alert to person place time and situation. No obvious cranial nerve deficits. Motor grossly within normal limits. Five out of 5 muscle strength in the arms and legs. Normal speech. PSYCHIATRIC: Appropriate mood and affect; insight and judgment normal. Results Labs CBC & Chem 7: 06/18/18 08:30 06/18/18 08:30 Caprini VTE Risk Assessment Caprini VTE Risk Assessment: Moderate/High Risk (score >= 2) Caprini Risk Assessment Model: Point Value = 1 Point Value = 2 Point Value = 3 Point Value = 5 Age 41-60 Minor surgery BMI > 25 kg/m2 Swollen legs Varicose veins or History of unexplained or recurrent spontaneous Oral contraceptives or hormone replacement Sepsis (< 1 month) Serious lung disease, including pneumonia (< 1 month) Abnormal pulmonary function Acute myocardial infarction Congestive heart failure (< 1 month) History of inflammatory bowel disease Medical patient at bed rest Age 61-74 Arthroscopic surgery Major open surgery (> 45 min) Laparoscopic surgery (> 45 min) Malignancy Confined to bed (> 72 hours) Immobilizing plaster cast Central venous access Age >= 75 History of VTE Family history of VTE Factor V Leiden Prothrombin [id number] Lupus anticoagulant Anticardiolipin antibodies Elevated serum homocysteine Heparin-induced thrombocytopenia Other congenital or acquired thrombophilia Stroke (< 1 month) Elective arthroplasty Hip, pelvis, or leg fracture Acute spinal cord injury (< 1 month) Prophylaxis Regimen: Total Risk Factor Score Risk Level Prophylaxis Regimen 0-1 Low Early ambulation 2 Moderate Order ONE of the following: *Sequential Compression Device (SCD) *Heparin 5000 units SQ BID 3-4 Higher Order ONE of the following medications: *Heparin 5000 units SQ TID *Enoxaparin/Lovenox 40 mg SQ daily (WT < 150 kg, CrCl > 30 mL/min) *Enoxaparin/Lovenox 30 mg SQ daily (WT < 150 kg, CrCl > 10-29 mL/min) *Enoxaparin/Lovenox 30 mg SQ BID (WT < 150 kg, CrCl > 30 mL/min) AND/OR *Sequential Compression Device (SCD) 5 or more Highest Order ONE of the following medications: *Heparin 5000 units SQ TID (Preferred with Epidurals) *Enoxaparin/Lovenox 40 mg SQ daily (WT < 150 kg, CrCl > 30 mL/min) *Enoxaparin/Lovenox 30 mg SQ daily (WT < 150 kg, CrCl > 10-29 mL/min) *Enoxaparin/Lovenox 30 mg SQ BID (WT < 150 kg, CrCl > 30 mL/min) AND *Sequential Compression Device (SCD) Assessment and Plan (1) Hyponatremia: Code(s): E87.1 - Hypo-osmolality and hyponatremia Status: Acute Plan 63-year-old white male with a history of hepatocellular carcinoma, hepatitis C was scheduled for mapping radioablation with interventional radiology who was found to have Severe hyponatremia-admit for IV fluid hydration normal saline overnight. Will stop HCTZ. Placed on seizure precaution. Repeat levels in the morning. History of hepatocellular carcinoma -consult Dr. Mcghee his oncologist for further recommendations. Discussed with Dr. Anderson, interventional radiology who will be willing to reschedule for another mapping and prep for radial ablation if cleared medically by us and Dr. Mcghee. We will consult palliative care service to discuss with patient short-term and long-term goals. Continue with current current home narcotics for pain control. Add bowel regimen. History of hypertension, resume lisinopril, vasotec prn for uncontrolled BP DVT prophylaxishold anticoagulation secondary to liver dysfunction due to hepatocellular carcinoma H&P: Quality VTE Deep Vein Thrombosis/Pulmonary Embolism Present on Admission: No
--- NOTE | 2018-06-18 15:11 | P.CONPAL ---
Consult Service: Palliative Care Requesting Physician: Katty Vu Reason for Consult: a. To assist with evaluation and management of symptoms including: cough, pain (chronic) constipation b. To assist medical decision maker(s) with: better understanding of current medical conditions; weighing benefits/burdens of medical treatment options; making medical treatment decisions. Primary Care Provider: Kayla Ambriz History of Present Illness History of Present Illness: This pt presented to the hospital due to low sodium level, 110. He was apparently sent from IR as he was there scheduled for mapping radioablation. This was decreased from prior labs in May in which sodium was 129, sodium of 120 on June 13. At presentation patient denied headache, confusion or any seizure activity. He endorses ongoing chronic right upper quadrant pain controlled with morphine and oxycodone. He has known history of hepatocellular carcinoma, hep C, hypertension. * Admitted for further evaluation and management. HCTZ was stopped. Started on seizure precautions. Known oncologist Dr. Miranda consulted. Discussed with IR who will reschedule for another mapping and radioablation if medically cleared. Patient was continued on home dosing of opiates for pain control. Bowel regimen started. Palliative care was consulted to assist with clarification of long-term and short term goals of medical treatment. Seen in room no visitors present. He initially had to void provided him with time and return. Observed dark concentrated orange tinged urine. Patient is alert, oriented and appropriate. At times forgetful. Hard of hearing. Endorses prior to cancer diagnosis in April he was feeling good health, his usual self. Has not been able to work since the diagnoses says the doctor told him not to. Explore with him his original conversations with oncology regarding prognosis etc. he Indicates that oncology initially d/w him plans to "shrink the cancer enough to give him additional treatment." He further states that he's now "not sure they can do anything for him" and that all of his siblings have of various cancers. He does wish to proceed with possible radiation therapy, and chemo if he is able to. Explore that in some cases, if medically unable to tolerate chemo, radiation or other treatments, some patients may elect comfort tx only, and that would involve hospice. Indicates he is not getting better oriented options and he will probably need to consider explore code status, endorses that unless he "is totally gone" he would want resuscitation try to live. Exploration of advance directives and healthcare surrogate. He has not completed any documentation of this kind. He endorses that he would want significant other to serve as healthcare surrogate, he is open to reviewing these documents and completing them during hospitalization. 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 His initial presenting symptom was right upper quadrant pain intermittent for a week or so--CT findings of 20 cm mass replacing nearly the entire right hepatic lobe. Upon original diagnoses concern for metastasis though CT of the chest was negative for additional masses. Discharge 05/05 with planned follow-up with oncology outpatient, as pathology was not available at that time. Oncology follow-up 06/13/18 notes plan for interventional radiology mapping 06/18. He was not at the time of diagnoses a candidate for liver transplant or resection due to large mass noted on 06/13 follow-up that he may now be a candidate for resection or liver transplant. Referred to IR. Plan to start on Nexavar if does well with radio embolization. However at that time also "appeared to have progression of disease. Overall prognosis poor. " Hepatitis C was newly diagnosed during recent hospital he is beginning to develop ascites though no encephalopathy or coagulopathy. He was having at that time increased right upper quadrant pain requiring at least 4 oxycodone a day. Pain was still not adequately controlled so planned to start on long-acting morphine with oxycodone for breakthrough. He is having decreased appetite and some muscle loss though weight apparently not changed. Function/Cognitive Trajectory: Lives at home with significant other. With ADLs. No cognitive deficits reported. Review of Systems Constitutional: Denies anorexia, Denies fatigue, Denies fever(s), Denies headache(s), Denies increased appetite, Denies weight gain, Denies weight loss Ears, Nose, Mouth, and Throat: Denies pain with swallowing, Denies sore throat Cardiovascular: Reports leg swelling, Denies chest pain, Denies shortness of breath Respiratory: Reports cough, Denies shortness of breath, Denies wheezing Gastrointestinal: Reports abdominal pain, Reports constipation, Denies feeling full early, Denies heartburn, Denies loose stools, Denies nausea, Denies pain with swallowing, Denies vomiting Genitourinary: Denies blood in urine, Denies difficulty urinating Musculoskeletal: Reports decreased muscle mass, Denies back pain, Denies joint swelling Skin/Breast: Denies non-healing lesions, Denies rash Neurologic: Denies dizziness, Denies headache(s), Denies localized weakness, Denies memory loss Psychiatric: Denies anxiety, Denies confusion PMFSH - History History Provided By: Patient - Medical History Medical History: Medical History (Last Reviewed 06/19/18 @ 08:51 by Zonia Ruiz) Hepatitis C Hepatocellular carcinoma Hypertension Patient denies medical problems Neck pain - Surgical History Surgical History: Surgical History (Last Reviewed 06/19/18 @ 08:51 by Zonia Ruiz) History of liver biopsy No history of previous surgery - Family History Family History: Family History (Last Reviewed 06/19/18 @ 08:51 by Zonia Ruiz) Sister Family history of breast cancer Father Family history of cancer Throat cancer Mother Lung cancer - Social History I have reviewed the patient's Social History: Yes - Tobacco History Second Hand Smoke Exposure: Yes Tobacco Use In Past 30 Days: Yes Smoking Status: Current every day smoker Tobacco Type: Cigarettes Packs Per Day: 1 Cigarettes Per Day: 20.0 - Alcohol History How Often Do You Have a Drink Containing Alcohol: Never - Substance Use History Substance History: No History of Abuse - Travel History History of Recent Travel: No Recent Travel in the [place] Within the Last 8 Weeks: No Recent Travel Out of the Country Within the Last 8 Weeks: No Medications and Allergies Active Medications: Active Medications Al Hydroxide/Mg Hydroxide (Milk Of Magnesia Liq) 30 ml PO Q12H PRN PRN Reason: Mild Constipation Bisacodyl (Dulcolax Supp) 10 mg RECTAL DAILY PRN PRN Reason: SEVERE CONSITIPATION Diphenhydramine HCl (Benadryl) 25 mg PO Q6H PRN PRN Reason: ITCHING Enalaprilat (Vasotec Inj) 1.25 mg IV.PUSH Q6H PRN PRN Reason: SEE LABEL COMMENTS Sodium Chloride (Ns Inj) 1,000 mls @ 75 mls/hr IV.CONT .[id number] WILL Stop: 06/18/18 23:04 Last Admin: 06/18/18 10:50 Dose: 75 mls/hr Lactulose (Lactulose Liq) 30 ml PO DAILY PRN PRN Reason: SEVERE CONSITIPATION Lisinopril (Prinivil) 20 mg PO DAILY [facility] Morphine Sulfate (Oramorph Sr) 30 mg PO Q12H [facility] Ondansetron HCl (Zofran Inj) 4 mg IV.PUSH Q6H PRN PRN Reason: NAUSEA OR VOMITING Oxycodone HCl (Roxicodone) 10 mg PO Q6H PRN PRN Reason: Pain 3-10 Last Admin: 06/18/18 10:30 Dose: 10 mg Senna/Docusate Sodium (Nupur-Colace) 1 tab PO BID [facility] Sennosides (Senokot) 17.2 mg PO Q12H PRN PRN Reason: Moderate Constipation Sodium Chloride (Ns Flush) 2 ml IV.FLUSH BID WILL Sodium Chloride (Ns Flush) 2 ml IV.FLUSH PRN PRN PRN Reason: FLUSH AFTER USING IV ACCESS Allergies Allergy/AdvReac Type Severity Reaction Status Date / Time No Known Allergies Allergy Verified 06/18/18 07:55 Home Medications Medication Instructions Recorded Confirmed Type morphine 30 mg PO Q12H 06/18/18 06/18/18 History oxycodone 10 mg PO Q4-6H PRN 06/18/18 06/18/18 History potassium chloride 10 meq PO DAILY 06/18/18 06/18/18 History Advance Directives Living Will: No Healthcare Surrogate: No Ethical and Legal Issues: Patient currently capacitated and able to make his own decisions. He wishes to designate his significant other as healthcare surrogate, palliative can assist him with this during hospital course. Physical Exam Vital Signs: Vital Signs - 24 hr 06/18/18 08:08 06/18/18 12:59 Temperature 97 F L 98.2 F Pulse Rate 84 91 H Respiratory Rate 20 18 Blood Pressure 150/88 H 146/62 H Pulse Oximetry 95 94 L I&O: Intake & Output 06/16/18 06/17/18 06/18/18 06/19/18 06:59 06:59 06:59 06:59 Weight 74.843 kg Physical Exam: CONSTITUTIONAL/GENERAL: This is an adequately nourished patient, in no apparent distress.alert, pleasant TUBES/LINES/DRAINS: Peripheral IV upper extremity SKIN: No jaundice, rashes, or lesions. No wounds seen anteriorly. Skin warm and dry. HEAD: Atraumatic. Normocephalic. EYES: Pupils equal and round and reactive. Extraocular motions intact. slight scleral icterus. No injection or drainage. Fundi not examined. ENT: Very hard of hearing. Nose without bleeding or purulent drainage. Throat without visible erythema, exudates, masses, or lesions. NECK: Trachea midline. Supple, nontender. No palpable thyroid enlargement or nodularity. CARDIOVASCULAR: Regular rate and rhythm without murmur. No JVD. Peripheral pulses symmetric. RESPIRATORY/CHEST: Symmetric, unlabored respirations. Clear, occasional expiratory wheeze right posterior. Deep inspiration prompts cough. Breath sounds equal bilaterally. GASTROINTESTINAL: Abdomen firm, distended. + tender. Limited palp 2/2 sitting on side of bed. Bowel sounds present. GENITOURINARY: dark tea color urine in urinal MUSCULOSKELETAL: Extremities without clubbing, cyanosis. No joint tenderness or effusion noted. + edema to legs, feet. LYMPHATICS: No palpable cervical or supraclavicular adenopathy. NEUROLOGICAL: Awake and alert. oriented x3, forgetful at times. appears to have reasonable insight to conditions. moves all 4 extremities. PSYCHIATRIC: No obvious anxiety/depression. no apparent hallucinations or other psychotic thought process. Diagnostic Tests Laboratory: Laboratory Results - last 72 hr 06/18/18 06/18/18 06/18/18 08:30 08:30 08:30 WBC 8.0 RBC 3.59 L Hgb 11.4 L Hct 31.6 L MCV 88.1 MCH 31.8 MCHC 36.1 H RDW 16.9 Plt Count 147 L MPV 8.8 Prelim Diff (Auto) Slide review pending Neut % (Auto) 62.3 Lymph % (Auto) 29.8 [place] % (Auto) 3.3 Eos % (Auto) 4.1 H Baso % (Auto) 0.5 Neut # (Auto) 5.0 Lymph # (Auto) 2.4 [place] # (Auto) 0.3 Eos # (Auto) 0.3 Baso # (Auto) 0.0 WBC Differential . Diff Scan Auto diff confirmed Differential Comment . 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 * Patients general health, functional status, and cognitive changes in the months leading up to the current hospitalization * Patient understanding of the current medical problems * Patient understanding of prognosis * Patients goals of care as best understood from advance directives and/or conversations and/or values--limited exploration, pending additional input from oncology * Current medical treatment options and benefits/burdens of those options * Likely scenarios comparing ongoing aggressive care with a transition to comfort measures only--brief review of hospice services if no further treatments are desired or there are no further treatment options * CODE STATUS-endorses he would want to try CPR at this time unless there was "no chance" * Legal decision makers-open to further discussion regarding healthcare surrogate this admission, palliative can assist * Questions answered to the best of my ability * Palliative care contact information provided Endorses prior to cancer diagnosis in April he was feeling good health, his usual self. Has not been able to work since the diagnoses says the doctor told him not to. Explore with him his original conversations with oncology regarding prognosis etc. he Indicates that oncology initially d/w him plans to "shrink the cancer enough to give him additional treatment." He further states that he's now "not sure they can do anything for him" and that all of his siblings have of various cancers. He does wish to proceed with possible radiation therapy, and chemo if he is able to. Explore that in some cases, if medically unable to tolerate chemo, radiation or other treatments, some patients may elect comfort tx only, and that would involve hospice. Indicates he is not getting better oriented options and he will probably need to consider explore code status, endorses that unless he "is totally gone" he would want resuscitation try to live. Exploration of advance directives and healthcare surrogate. He has not completed any documentation of this kind. He endorses that he would want significant other to serve as healthcare surrogate, he is open to reviewing these documents and completing them during hospitalization. Assessment and Plan - Disease Oriented Problem List (1) Hepatocellular carcinoma (2) Hyponatremia (3) Liver mass, right lobe (4) Transaminitis (5) Hyperbilirubinemia - Symptom Scale (1) Pain 0-10 Scale: 8 (2) Dyspnea 0-10 Scale: Unable to quantify (3) Constipation 0-10 Scale: Unable to quantify Pertinent Non-Medical Issues: Psychosocial: Not . Has 4 sisters, from cancer. Has a few nieces and nephews remaining though does not remain in close communication with them. No children. Supported by significant other his girlfriend of many years. 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 Spiritual: Does not desire university teacher support Legal:Patient currently capacitated and able to make his own decisions. He wishes to designate his significant other as healthcare surrogate, palliative can assist him with this during hospital course. Ethical issues impacting care: No ethical issues identified. Important Contacts: Friend Brenda Canas [phone] Prognosis: This patient was admitted for hyponatremia 110. Underlying diagnosis of hepatocellular carcinoma, 20 cm mass identified. Planned for radio ablation and possible subsequent chemotherapy per oncology. Last oncology follow-up 06/13 notes overall prognosis poor. Additional prognostication at this time pending oncology evaluation this admission. May be appropriate for hospice if goals comfort oriented. Code Status: Full Code Plan: Legal decision maker: Patient currently capacitated and able to make his own decisions. He wishes to designate his significant other as healthcare surrogate , palliative can assist him with this during hospital course. Goals: Patient seems to have reasonable understanding of underlying diet and possible severity of prognosis and conditions. Further input from him for better prognostication. At this time patient endorses he would pursue treatment options also seems open to further discussing hospice and comfort measures only he not be a candidate for aggressive treatment or not have additional tx options. CODE STATUS: Full code SYMPTOMS: --Cough/dyspnea-denies dyspnea though does endorse occasional cough which is chronic. He endorses still smoking. Presume some of this is chronic lung disease status. May benefit from prn nebulizers. --Abdominal pain-new diagnosis 04/2018 of hepatocellular carcinoma, large mass 20 cm. Plan for radio ablation and possible chemotherapy to reduce tumor burden. He has had significant increase in abdominal pain previously controlled with oxycodone though recently on follow-up with oncology 06/13 required addition of long-acting morphine with oxycodone for breakthrough. pain up to 7-10, Today he endorses that generally well controlled during the day with addition of long-acting he is requiring oxy once or twice a day breakthrough. We will continue to assess/evaluate --No complaints of nausea --Constipationendorses intermittent loose bowel movement 2 days ago. Started on bowel regimen today per medical attending, monitor for effectiveness Palliative care will continue to follow during hospital course as condition evolves, to assist patient/decision-maker with understanding of medical conditions, weighing benefits/burdens of treatment options, for clarification of goals of treatment. Additionally will assist with any symptoms of palliative concern Appreciation Thank you for the opportunity to participate in the care of Arsen Ng. Attestation Attestation: To help prompt me to consider important information that might be impacting today's encounter and assessment, information from prior notes written by myself or my colleagues may have been "brought forward" into today's note. My signature on this note, however, is an attestation that I personally performed the exam, history, and/or decision-making noted today, and, unless otherwise indicated, the interactions with patient, family, and staff as well as the review of records all occurred today. I also attest that the listed assessment and stated plan reflect my best clinical judgment today based on the combination of historical information, prior notes, and today's exam/ interactions. When time spent is documented, it refers only to time spent today by the signer, or if indicated, combined time spent today by collaborating physician/nurse practitioner.
[2018-06-18] MEDS: Senna/Docusate Sodium 8.6/50 MG Tablet PO SCH (20:09)
[2018-06-18] MEDS: Morphine Sulfate 30 MG SR Tablet PO SCH ×3 (20:10→21:49)
[2018-06-19] MEDS: Lisinopril 20 MG Tablet PO SCH (08:27)
[2018-06-19] MEDS: Senna/Docusate Sodium 8.6/50 MG Tablet PO SCH ×2 (08:27→20:36)
[2018-06-19 08:35] LABS: Uric Acid 3.1 mg/dl (2.6-7.2)
[2018-06-19 08:38] LABS: Alanine Aminotransferase 290 U/L (12-78); Albumin 2.9 g/dL (3.4-5.0); Alkaline Phosphatase 146 U/L (45-117); Anion Gap 10 meq/L (5-15); Aspartate Aminotransferase 260 U/L (15-37); Blood Urea Nitrogen 10 mg/dL (7-18); Calcium 8.6 mg/dL (8.5-10.1); Carbon Dioxide 24.8 meq/L (21.0-32.0); Chloride 79 meq/L (98-107); Glomerular Filtration Rate Greater Than 89 mL/min (>89); Glucose,Random 84 mg/dL (74-106); Potassium 3.6 meq/L (3.5-5.1); Total Protein 6.6 g/dL (6.4-8.2)
[2018-06-19 08:42] LABS: Sodium 114 meq/L (136-145)
[2018-06-19 08:44] LABS: Thyroid Stimulating Hormone 3.15 uIU/mL (0.358-3.740)
[2018-06-19] MEDS: Morphine Sulfate 30 MG SR Tablet PO SCH ×3 (09:43→21:31)
--- NOTE | 2018-06-19 10:15 | MB ---
cc: Brady Mcghee MD DATE: 06/19/2018 ATTENDING PHYSICIAN: Dr. Vu. REASON FOR CONSULTATION: Oncology consult to render opinion regarding the patient with hepatocellular carcinoma admitted with hyponatremia. HISTORY OF PRESENT ILLNESS: The patient is a very pleasant 63-year-old male diagnosed with advanced hepatocellular carcinoma in the end of April, admitted to the hospital with severe hyponatremia. He first presented in April with abdominal pain and found to have a large liver mass. He had a biopsy which showed a well-differentiated hepatocellular carcinoma. He was supposed to go to interventional radiology yesterday for mapping and eventually receive Y-90 radioembolization. However, he was noted to have a sodium level of 110 admitted for further management. He has increased weakness and fatigue. He still has right upper quadrant pain, but is better controlled since she started taking long-acting morphine and using oxycodone. He denies any fever or chill. He denies headache or visual changes. He has no seizure activity. He has no chest pain or palpitations. He denies any shortness of breath or cough. He has no nausea or vomiting. He denies any diarrhea or constipation. No change in urinary habit. PAST MEDICAL HISTORY: Hepatocellular carcinoma, hepatitis C, cirrhosis, hypertension, chronic neck pain. PAST SURGICAL HISTORY: Liver biopsy. FAMILY HISTORY: Sister of breast cancer. Father of throat cancer. Mother had lung cancer. He had 4 sisters, only 1 alive. He has no children. SOCIAL HISTORY: Smoked a pack a day for more than 40 years. He quit drinking alcohol. ALLERGIES: NO KNOWN DRUG ALLERGIES. CURRENT MEDICATIONS: Lisinopril, Oramorph, oxycodone p.r.n., Nupur-Colace. REVIEW OF SYSTEMS: CONSTITUTIONAL: Increased weakness and weight loss. EYES: Negative. ENT: Negative. CARDIOVASCULAR: As above. RESPIRATORY: As above. GASTROINTESTINAL: As above. GENITOURINARY: As above. MUSCULOSKELETAL: Negative. HEMATOLOGY: Negative. ENDOCRINE: Negative. DERMATOLOGY: Negative. PSYCHIATRIC: Negative. NEUROLOGIC: Negative. PHYSICAL EXAMINATION: VITAL SIGNS: Temperature 97.5, blood pressure 149/88, O2 saturation 95%. GENERAL: He is alert, oriented x 3, no acute distress. HEENT: Atraumatic, normocephalic. Pupils are equal, round, reactive to light. Extraocular muscles intact. No scleral icterus. Oropharynx: Dry mucosa. No lesion, No thrush. NECK: No thyromegaly. No palpable mass. LYMPHATIC: No palpable cervical, clavicular, axillary, or inguinal lymphadenopathy. CARDIOVASCULAR: Regular S1, S2. No murmur. LUNGS: Clear to auscultation. Mild wheezing. No rhonchi. ABDOMEN: Soft, nondistended. Mass palpable in right upper quadrant. It is tender. No rebound, rigidity. EXTREMITIES: 2+ edema all the way up to his thigh. SKIN: No rash or petechiae. NEUROLOGIC: Nonfocal. LABORATORY DATA: I reviewed his blood work drawn during this hospital admission. ASSESSMENT: 1. Hepatocellular carcinoma. The patient presented with abdominal pain in April and found to have a large mass in the liver. 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 There was flow noted in the left portal vein. Alpha-fetoprotein was 16.2. CA 19-9 was elevated. Biopsy showed well differentiated hepatocellular carcinoma arising in the background of cirrhosis. He was not a candidate for liver transplant and resection. He went to interventional radiology yesterday for mapping and to see if he is a candidate for Y-90 radioembolization. Eventual plan is to start him on Nexavar if he tolerated the radioembolization well. However, his overall prognosis is poor. I told him that treatment is palliative. The patient stated that he understands because he has multiple family members of cancer. He said that he is realistic. He would like to try the radioembolization and treatment; but if it is not working, he would consider hospice care. 2. Hepatitis C, cirrhosis, recently diagnosed. Child-Moreira class B. He has ascites. He has no encephalopathy or coagulopathy. 3. Abdominal pain due to hepatocellular carcinoma. Better controlled with long-acting morphine and using oxycodone for breakthrough pain. 4. Severe hyponatremia. His sodium has been dropping. This could be syndrome of inappropriate antidiuretic hormone secretion or due to underlying liver disease. We will proceed with hyponatremia workup. 5. Elevated liver enzymes due to hepatocellular carcinoma. 6. Generalized edema due to underlying liver disease. PLAN: 1. I had extensive discussion with the patient as above. We have discussed code status. The patient is leaning towards a do not resuscitate, but he would like to talk to his significant other first. At this point, he wants to try treatment; but he will consider hospice if the treatment is not working. Palliative Care Medicine is following. 2. Proceed with workup for hyponatremia. 3. Continue supportive care. 4. Continue pain control. Thank you, Dr. Vu, for asking me to see this patient. MD PABLO Winchester/sebastián , 08:01 AM , 08:15 AM
--- NOTE | 2018-06-19 13:31 | P.PNPAL ---
Reason for Visit Reason for visit: a. To assist with evaluation and management of symptoms including: cough, pain (chronic) constipation b. To assist medical decision maker(s) with: better understanding of current medical conditions; weighing benefits/burdens of medical treatment options; making medical treatment decisions. Subjective Subjective/Interval History: Pt seen today to follow up on pain, goals, HCS. Stable overnight. Oncology has seen this am, Dr Mcghee. Noted that once medical condition stabilized, is planned for palliative radioembolization with Y-90, followed by Nexavar (if pt able to tolerate) . LFTs remain elevated. Na+ improving slowly, up to 114 today. + fluid restriction in place. Pt seen in room, seated on edge of bed. He is alert, orietned. Remembers me from yesterday. Shares Dr Mcghee was in earlier. Explore with him treatment plans he discussed with Dr Mcghee. He indicates He" guesses he is going to give therapy a try but is not sure that it will really do much " , he tells me that another oncology doctor that he saw said treatment would not offer much. I did gently explore with him that treatment at this point would be palliative; he may gain additional time from pursuing palliative therapy such as radio embolization. Gently explore that if he is unable to obtain additional therapy or does not want to, that hospice and comfort measures would be an option for him. He expresses understanding. Review of HCS, he indicates he would want significant other Brenda to serve, assisted him to complete HCS designation. Also reviewed with him 5 wishes end of life document, he is receptive, and will review further with his sig other. He endorses abdominal pain is very well controlled today, very comfortable. Denies SOB. Reports no BM yet, but does not want to take additional laxative due to he is concerned they will be "too effective". Review w him SE of opiates and need for ongoing bowel regimen to prevent ongoing constipation. He denies nausea, endorses feeling little appetite, eating a few bites of his meals today. reports edema to BLE is the same doesn't seem to be improving, and he wonders if he should have more diuretic. Explore with him symptoms of end stage liver disease process and edema as SE,and limitations of diuretics, and electrolyte imbalances currently being treated. 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 His initial presenting symptom was right upper quadrant pain intermittent for a week or so--CT findings of 20 cm mass replacing nearly the entire right hepatic lobe. Upon original diagnoses concern for metastasis though CT of the chest was negative for additional masses. Discharge 05/05 with planned follow-up with oncology outpatient, as pathology was not available at that time. Oncology follow-up 06/13/18 notes plan for interventional radiology mapping 06/18. He was not at the time of diagnoses a candidate for liver transplant or resection due to large mass noted on 06/13 follow-up that he may now be a candidate for resection or liver transplant. Referred to IR. Plan to start on Nexavar if does well with radio embolization. However at that time also "appeared to have progression of disease. Overall prognosis poor. " Hepatitis C was newly diagnosed during recent hospital he is beginning to develop ascites though no encephalopathy or coagulopathy. He was having at that time increased right upper quadrant pain requiring at least 4 oxycodone a day. Pain was still not adequately controlled so planned to start on long-acting morphine with oxycodone for breakthrough. He is having decreased appetite and some muscle loss though weight apparently not changed. Objective Vital Signs: Vital Signs 06/18/18 15:53 06/18/18 20:05 06/18/18 20:09 Temperature 98.2 F 98 F Pulse Rate 88 83 81 Respiratory Rate 18 18 Blood Pressure 142/81 H 147/88 H Pulse Oximetry 96 96 06/18/18 20:40 06/18/18 23:59 06/19/18 00:07 Temperature 97.9 F Pulse Rate 83 84 Respiratory Rate 16 18 Blood Pressure 146/79 H Pulse Oximetry 96 06/19/18 00:36 06/19/18 04:02 06/19/18 05:39 Temperature 97.5 F L Pulse Rate 96 H 95 H Respiratory Rate 16 20 Blood Pressure 149/88 H Pulse Oximetry 95 06/19/18 07:00 06/19/18 08:17 06/19/18 11:00 Temperature 97.5 F L Pulse Rate 88 93 H 89 Respiratory Rate 18 Blood Pressure 134/85 Pulse Oximetry 94 L 06/19/18 11:13 Temperature 97.6 F Pulse Rate 84 Respiratory Rate 18 Blood Pressure 142/77 H Pulse Oximetry 95 Intake & Output 06/18/18 06/19/18 06/19/18 18:59 06:59 18:59 Intake Total 1480 / 1480 240 / 240 Output Total 400 / 400 1520 / 1520 200 / 200 Balance -400 / -400 -40 / -40 40 / 40 Weight 74.843 kg 74.5 kg Intake: IV 1000 / 1000 NS Inj 1,000 ML @ 75 mls/hr IV. 1000 / 1000 CONT .[id number] [facility] Rx#:[id number] Oral 480 / 480 240 / 240 Output: Urine 400 / 400 1520 / 1520 200 / 200 Other: Date of Last Bowel Movement 06/16/18 06/16/18 06/17/18 Weight On Admission 74.843 kg Physical Exam: CONSTITUTIONAL/GENERAL: This is an adequately nourished patient, in no apparent distress.alert, pleasant TUBES/LINES/DRAINS: Peripheral IV upper extremity ENT: Very hard of hearing. Nose without bleeding or purulent drainage. Throat without visible erythema, exudates, masses, or lesions. NECK: Trachea midline. Supple, nontender. No palpable thyroid enlargement or nodularity. CARDIOVASCULAR: Regular rate and rhythm without murmur. No JVD. Peripheral pulses symmetric. RESPIRATORY/CHEST: Symmetric, unlabored respirations. Clear . Breath sounds equal bilaterally. GASTROINTESTINAL: Abdomen firm, distended. + tender. Limited palp 2/2 sitting on side of bed. Bowel sounds present. MUSCULOSKELETAL: Extremities without clubbing, cyanosis. No joint tenderness or effusion noted. + edema to legs, feet. LYMPHATICS: No palpable cervical or supraclavicular adenopathy. NEUROLOGICAL: Awake and alert. oriented x3, forgetful at times. appears to have reasonable insight to conditions. moves all 4 extremities. PSYCHIATRIC: No obvious anxiety/depression. no apparent hallucinations or other psychotic thought process. Diagnostic Tests Laboratory: Laboratory Results - last 72 hr 06/18/18 06/18/18 06/18/18 08:30 08:30 08:30 WBC 8.0 RBC 3.59 L Hgb 11.4 L Hct 31.6 L MCV 88.1 MCH 31.8 MCHC 36.1 H RDW 16.9 Plt Count 147 L MPV 8.8 Prelim Diff (Auto) Slide review pending Neut % (Auto) 62.3 Lymph % (Auto) 29.8 Stephens % (Auto) 3.3 Eos % (Auto) 4.1 H Baso % (Auto) 0.5 Neut # (Auto) 5.0 Lymph # (Auto) 2.4 Stephens # (Auto) 0.3 Eos # (Auto) 0.3 Baso # (Auto) 0.0 WBC Differential . Diff Scan Auto diff confirmed Differential Comment . Platelet Estimate Low L Platelet Morphology Enlarged H Target Cells 1+ H PT 12.7 H INR 1.3 APTT 37.3 H Sodium 110 L* Potassium 3.8 Chloride 75 L Carbon Dioxide 24.3 Anion Gap 11 BUN 11 Creatinine 0.71 Estimated GFR Greater than 89 Random Glucose 100 Osmolality Uric Acid Calcium 8.4 L Total Bilirubin 2.5 H AST 277 H ALT 295 H Alkaline Phosphatase 149 H Total Protein 6.9 Albumin 2.9 L TSH Urine Osmolality Ur Random Sodium 06/19/18 06/19/18 06/19/18 06:50 06:50 08:35 WBC RBC Hgb Hct MCV MCH MCHC RDW Plt Count MPV Prelim Diff (Auto) Neut % (Auto) Lymph % (Auto) Stephens % (Auto) Eos % (Auto) Baso % (Auto) Neut # (Auto) Lymph # (Auto) Stephens # (Auto) Eos # (Auto) Baso # (Auto) WBC Differential Diff Scan Differential Comment Platelet Estimate Platelet Morphology Target Cells PT INR APTT Sodium 114 L* Potassium 3.6 Chloride 79 L Carbon Dioxide 24.8 Anion Gap 10 BUN 10 Creatinine 0.72 Estimated GFR Greater than 89 Random Glucose 84 Osmolality 237 L Uric Acid 3.1 Calcium 8.6 Total Bilirubin 2.2 H AST 260 H ALT 290 H Alkaline Phosphatase 146 H Total Protein 6.6 Albumin 2.9 L TSH 3.150 Urine Osmolality 332 Ur Random Sodium 06/19/18 08:35 WBC RBC Hgb Hct MCV MCH MCHC RDW Plt Count MPV Prelim Diff (Auto) Neut % (Auto) Lymph % (Auto) Stephens % (Auto) Eos % (Auto) Baso % (Auto) Neut # (Auto) Lymph # (Auto) Stephens # (Auto) Eos # (Auto) Baso # (Auto) WBC Differential Diff Scan Differential Comment Platelet Estimate Platelet Morphology Target Cells PT INR APTT Sodium Potassium Chloride Carbon Dioxide Anion Gap BUN Creatinine Estimated GFR Random Glucose Osmolality Uric Acid Calcium Total Bilirubin AST ALT Alkaline Phosphatase Total Protein Albumin TSH Urine Osmolality Ur Random Sodium Less than 5 Result Diagrams: 06/18/18 08:30 06/19/18 06:50 Procedures: 05/03/18 CT-guided needle biopsy of liver: 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 Has 4 sisters, from cancer. Has a few nieces and nephews remaining though does not remain in close communication with them. No children. Supported by significant other his girlfriend of many years. 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 Originally from [facility]. Spiritual: Does not desire applications engineering manager support Legal:Patient currently capacitated and able to make his own decisions. He wishes to designate his significant other as healthcare surrogate, palliative can assist him with this during hospital course. Ethical issues impacting care: No ethical issues identified. Important Contacts: Significant other, [facility], Brenda Canas [phone], Prognosis: This patient was admitted for hyponatremia 110. Underlying diagnosis of hepatocellular carcinoma, 20 cm mass identified. Planned for radio ablation and possible subsequent chemotherapy per oncology. Last oncology follow-up 06/13 notes overall prognosis poor. Additional prognostication at this time pending oncology evaluation this admission. May be appropriate for hospice if goals comfort oriented. Code Status: Full Code Plan: Legal decision maker: Patient currently capacitated and able to make his own decisions. He has designated his significant other Brenda as healthcare surrogate, copies provided to pt, and scanned to [facility] records. Goals: Patient seems to have reasonable understanding of underlying diagnosis and possible severity of prognosis and conditions. At this time patient endorses he would pursue treatment options also seems open to further discussing hospice and comfort measures only if he is not a candidate for aggressive treatment or does not have additional tx options. CODE STATUS: Full code SYMPTOMS: --Cough/dyspnea-denies dyspnea though does endorse occasional cough which is chronic. He endorses still smoking. Presume some of this is chronic lung disease status. May benefit from prn nebulizers. --Abdominal pain-new diagnosis 04/2018 of hepatocellular carcinoma, large mass 20 cm. Plan for radio ablation and possible chemotherapy to reduce tumor burden. He has had significant increase in abdominal pain previously controlled with oxycodone though recently on follow-up with oncology 06/13 required addition of long-acting morphine with oxycodone for breakthrough. pain up to 7-10, Today he endorses that pain well controlled . We will continue to assess/evaluate --No complaints of nausea --Constipationendorses intermittent loose bowel movement 3 days ago. Started on bowel regimen today per medical attending, monitor for effectiveness , pt does not want to use additional laxative today, already used MOM- educated on opiate related constipation and need for ongoing bowel regimen. Palliative care will continue to follow during hospital course as condition evolves, to assist patient/decision-maker with understanding of medical conditions, weighing benefits/burdens of treatment options, for clarification of goals of treatment. Additionally will assist with any symptoms of palliative concern Attestation Attestation: To help prompt me to consider important information that might be impacting today's encounter and assessment, information from prior notes written by myself or my colleagues may have been "brought forward" into today's note. My signature on this note, however, is an attestation that I personally performed the exam, history, and/or decision-making noted today, and, unless otherwise indicated, the interactions with patient, family, and staff as well as the review of records all occurred today. I also attest that the listed assessment and stated plan reflect my best clinical judgment today based on the combination of historical information, prior notes, and today's exam/ interactions. When time spent is documented, it refers only to time spent today by the signer, or if indicated, combined time spent today by collaborating physician/nurse practitioner.
--- NOTE | 2018-06-19 14:11 | P.PN ---
Subjective Interval history: awake and alert feels abdominal discomfort- on exam- abdomen distended + flatus no nausea or vomting Physical Exam Vital signs: Vital Signs 06/18/18 15:53 06/18/18 20:05 06/18/18 20:09 Temperature 98.2 F 98 F Pulse Rate 88 83 81 Respiratory Rate 18 18 Blood Pressure 142/81 H 147/88 H Pulse Oximetry 96 96 06/18/18 20:40 06/18/18 23:59 06/19/18 00:07 Temperature 97.9 F Pulse Rate 83 84 Respiratory Rate 16 18 Blood Pressure 146/79 H Pulse Oximetry 96 06/19/18 00:36 06/19/18 04:02 06/19/18 05:39 Temperature 97.5 F L Pulse Rate 96 H 95 H Respiratory Rate 16 20 Blood Pressure 149/88 H Pulse Oximetry 95 06/19/18 07:00 06/19/18 08:17 06/19/18 11:00 Temperature 97.5 F L Pulse Rate 88 93 H 89 Respiratory Rate 18 Blood Pressure 134/85 Pulse Oximetry 94 L 06/19/18 11:13 Temperature 97.6 F Pulse Rate 84 Respiratory Rate 18 Blood Pressure 142/77 H Pulse Oximetry 95 Intake & Output 06/18/18 06/19/18 06/19/18 18:59 06:59 18:59 Intake Total 1480 / 1480 240 / 240 Output Total 400 / 400 1520 / 1520 200 / 200 Balance -400 / -400 -40 / -40 40 / 40 Weight 74.843 kg 74.5 kg Intake: IV 1000 / 1000 NS Inj 1,000 ML @ 75 mls/hr IV. 1000 / 1000 CONT .[id number] [facility] Rx#:[id number] Oral 480 / 480 240 / 240 Output: Urine 400 / 400 1520 / 1520 200 / 200 Other: Date of Last Bowel Movement 06/16/18 06/16/18 06/17/18 Weight On Admission 74.843 kg Narrative: GENERAL: Well-nourished well-developed white male no acute distress SKIN: Warm and dry. Some reddish plaques over the left anterior mid lower leg area HEAD: Atraumatic. Normocephalic. EYES: Pupils equal and round. No scleral icterus. No injection or drainage. ENT: No nasal bleeding or discharge. Mucous membranes pink and moist. NECK: Trachea midline. No JVD. CARDIOVASCULAR: Regular rate and rhythm. RESPIRATORY: No accessory muscle use. Clear to auscultation. Breath sounds equal bilaterally. GASTROINTESTINAL: Abdomen distended- slightly tense, good bowel sounds MUSCULOSKELETAL: Extremities without clubbing, cyanosis, 1+ pitting edema no obvious deformities. some LE erythema NEUROLOGICAL: Awake and alert to person place time and situation. No obvious cranial nerve deficits. Motor grossly within normal limits. Five out of 5 muscle strength in the arms and legs. Normal speech. PSYCHIATRIC: Appropriate mood and affect; insight and judgment normal. Results - Labs CBC & Chem 7: 06/18/18 08:30 06/21/18 11:10 Laboratory Results - last 24 hr 06/19/18 06/19/18 06/19/18 06:50 06:50 08:35 Sodium 114 L* Potassium 3.6 Chloride 79 L Carbon Dioxide 24.8 Anion Gap 10 BUN 10 Creatinine 0.72 Estimated GFR Greater than 89 Random Glucose 84 Osmolality 237 L Uric Acid 3.1 Calcium 8.6 Total Bilirubin 2.2 H AST 260 H ALT 290 H Alkaline Phosphatase 146 H Total Protein 6.6 Albumin 2.9 L TSH 3.150 Urine Osmolality 332 Ur Random Sodium 06/19/18 08:35 Sodium Potassium Chloride Carbon Dioxide Anion Gap BUN Creatinine Estimated GFR Random Glucose Osmolality Uric Acid Calcium Total Bilirubin AST ALT Alkaline Phosphatase Total Protein Albumin TSH Urine Osmolality Ur Random Sodium Less than 5 Assessment and Plan - Assessment (1) Hyponatremia Code(s): E87.1 - Hypo-osmolality and hyponatremia Status: Acute - Plan 63-year-old white male with a history of hepatocellular carcinoma, hepatitis C was scheduled for mapping radioablation with interventional radiology who was found to have Severe hyponatremia-chronic- gradually trending up - with mild ascites and peripheral edema - fluid restriction =HCTZ was DC on ad,ossopn. Placed on seizure precaution. ? Samsca . consider Nephroogy consult - Repeat levels in the morning. History of hepatocellular carcinoma -consult Dr. Mcghee his oncologist for further recommendations. Discussed with Dr. Anderson, interventional radiology who will be willing to reschedule for another mapping and prep for radial ablation if cleared medically by us and Dr. Mcghee. We will consult palliative care service to discuss with patient short-term and long-term goals. Continue with current current home narcotics for pain control. Add bowel regimen. ? Ascites- Tense and complains of pain - get US -to see if there is ascites or abdominal distention is all from the mass- last CT report enormous liver mass - paracentesis if significant fluid History of hypertension, resume lisinopril, vasotec prn for uncontrolled BP DVT prophylaxishold anticoagulation secondary to liver dysfunction due to hepatocellular carcinoma
--- NOTE | 2018-06-19 15:07 | US ---
EXAM DATE: 06/19/2018 2:58 PM EST AGE/SEX: 63 years / Male INDICATIONS: Ascites. CLINICAL DATA: This is the patient's initial encounter. Patient reports that signs and symptoms have been present for 2 days and indicates a pain score of 1/10. MEDICAL/SURGICAL HISTORY: . Liver cancer. None. COMPARISON: [facility] [place], CT ABDOMEN & PELVIS W CONTRAST, 05/03/2018. . FINDINGS: Masses: Hepatic mass is identified Fluid Collections: Minimal ascites is noted. Other: None. CONCLUSION: Minimal ascites. Electronically signed by: Manuel Mcgrath MD 06/19/2018 3:06 PM EST
[2018-06-19] MEDS: Sodium Chloride 1 GM Tablet PO SCH ×2 (16:14→20:37)
[2018-06-20 08:02] LABS: Anion Gap 10 meq/L (5-15); Blood Urea Nitrogen 8 mg/dL (7-18); Chloride 83 meq/L (98-107); Glomerular Filtration Rate Greater Than 89 mL/min (>89); Glucose,Random 89 mg/dL (74-106); Potassium 3.7 meq/L (3.5-5.1)
[2018-06-20 08:19] LABS: Sodium 120 meq/L (136-145)
[2018-06-20] MEDS: Senna/Docusate Sodium 8.6/50 MG Tablet PO SCH ×2 (09:32→21:04)
[2018-06-20] MEDS: Morphine Sulfate 30 MG SR Tablet PO SCH ×2 (09:32→21:04)
[2018-06-20] MEDS: Sodium Chloride 1 GM Tablet PO SCH ×2 (09:33→21:04)
[2018-06-20] MEDS: Lisinopril 20 MG Tablet PO SCH (09:33)
--- NOTE | 2018-06-20 15:22 | P.PN ---
Subjective Interval history: no complains good po no pain up and ambulating Physical Exam Vital signs: Vital Signs 06/19/18 15:28 06/19/18 16:00 06/19/18 19:56 Temperature 97.9 F 97.4 F L Pulse Rate 86 84 88 Respiratory Rate 18 18 Blood Pressure 143/84 H 131/95 H Pulse Oximetry 93 L 97 06/19/18 20:01 06/19/18 21:06 06/20/18 00:27 Temperature 97.9 F Pulse Rate 81 87 Respiratory Rate 18 18 Blood Pressure 144/87 H Pulse Oximetry 94 L 06/20/18 00:55 06/20/18 02:00 06/20/18 04:03 Temperature Pulse Rate 83 79 Respiratory Rate 18 Blood Pressure Pulse Oximetry 06/20/18 04:38 06/20/18 08:00 06/20/18 10:00 Temperature 98 F 97.7 F Pulse Rate 89 90 86 Respiratory Rate 20 18 Blood Pressure 143/86 H 145/79 H Pulse Oximetry 94 L 94 L 06/20/18 10:30 06/20/18 12:00 06/20/18 12:49 Temperature 97.7 F Pulse Rate 92 H Respiratory Rate 18 18 18 Blood Pressure 130/82 Pulse Oximetry 94 L Intake & Output 06/19/18 06/20/18 06/20/18 18:59 06:59 18:59 Intake Total 360 / 360 600 / 600 285 / 285 Output Total 600 / 600 440 / 440 Balance -240 / -240 160 / 160 285 / 285 Weight 78 kg Intake: Oral 360 / 360 600 / 600 285 / 285 Output: Urine 600 / 600 440 / 440 Other: # Urine Diapers 2 Date of Last Bowel Movement 06/17/18 06/19/18 06/19/18 # Bowel Movements 1 Narrative: GENERAL: no acute distress SKIN: Warm and dry. Some reddish plaques over the left anterior mid lower leg area HEAD: Atraumatic. Normocephalic. EYES: Pupils equal and round. No scleral icterus. No injection or drainage. ENT: No nasal bleeding or discharge. Mucous membranes pink and moist. NECK: Trachea midline. No JVD. CARDIOVASCULAR: Regular rate and rhythm. RESPIRATORY: No accessory muscle use. Clear to auscultation. Breath sounds equal bilaterally. GASTROINTESTINAL: Abdomen distended, softer on exam today good bowel sounds MUSCULOSKELETAL: Extremities without clubbing, cyanosis, 1+ pitting edema no obvious deformities. NEUROLOGICAL: Awake and alert to person place time and situation. No obvious cranial nerve deficits. Motor grossly within normal limits. Five out of 5 muscle strength in the arms and legs. Normal speech. PSYCHIATRIC: Appropriate mood and affect; insight and judgment normal. Results - Labs CBC & Chem 7: 06/18/18 08:30 06/21/18 11:10 Laboratory Results - last 24 hr 06/20/18 06:21 Sodium 120 L* Potassium 3.7 Chloride 83 L Carbon Dioxide 27.0 Anion Gap 10 BUN 8 Creatinine 0.60 Estimated GFR Greater than 89 Random Glucose 89 Calcium 8.0 L Assessment and Plan - Assessment (1) Hyponatremia Code(s): E87.1 - Hypo-osmolality and hyponatremia Status: Acute - Plan 63-year-old white male with a history of hepatocellular carcinoma, hepatitis C was scheduled for mapping radioablation with interventional radiology who was found to have HYponatremia - DC when cleared with Oncology - plan to sign up with hospice- consulted - US shows minimal ascites - all mass Severe hyponatremia-chronic- gradually trending up- now 120 - with mild ascites and peripheral edema - fluid restriction =HCTZ was DC on admission. Placed on seizure precaution. - continue on NaCl 1 tab bid - Repeat levels in the morning. History of hepatocellular carcinoma -consult Dr. Mcghee his oncologist for further recommendations. Discussed with Dr. Anderson, interventional radiology who will be willing to reschedule for another mapping and prep for radial ablation if cleared medically by us and Dr. Mcghee. We will consult palliative care service to discuss with patient short-term and long-term goals. Continue with current current home narcotics for pain control. History of hypertension, resume lisinopril, vasotec prn for uncontrolled BP DVT prophylaxishold anticoagulation secondary to liver dysfunction due to hepatocellular carcinoma
--- NOTE | 2018-06-20 15:32 | P.PNONC ---
Subjective Interval history: Patient sleeping on approach, awakens easily to voice. Patient is no longer a candidate for chemotherapy or Y-90 radioembolization. This was discussed with the patient by Dr. Mcghee and myself. The patient would like to meet with hospice and ideally go home with home hospice and transition to a care center when medically necessary. His questions were answered. I have offered to speak with his girlfriend when she is available, the patient states she is having a hard time accepting his prognosis and he will deal with it himself. He does not want a place undue stress on her. Objective Vital Signs/Intake & Output: Vital Signs 06/19/18 15:28 06/19/18 16:00 06/19/18 19:56 Temperature 97.9 F 97.4 F L Pulse Rate 86 84 88 Respiratory Rate 18 18 Blood Pressure 143/84 H 131/95 H Pulse Oximetry 93 L 97 06/19/18 20:01 06/19/18 21:06 06/20/18 00:27 Temperature 97.9 F Pulse Rate 81 87 Respiratory Rate 18 18 Blood Pressure 144/87 H Pulse Oximetry 94 L 06/20/18 00:55 06/20/18 02:00 06/20/18 04:03 Temperature Pulse Rate 83 79 Respiratory Rate 18 Blood Pressure Pulse Oximetry 06/20/18 04:38 06/20/18 08:00 06/20/18 10:00 Temperature 98 F 97.7 F Pulse Rate 89 90 86 Respiratory Rate 20 18 Blood Pressure 143/86 H 145/79 H Pulse Oximetry 94 L 94 L 06/20/18 10:30 06/20/18 12:00 06/20/18 12:49 Temperature 97.7 F Pulse Rate 92 H Respiratory Rate 18 18 18 Blood Pressure 130/82 Pulse Oximetry 94 L Intake & Output 06/19/18 06/20/18 06/20/18 18:59 06:59 18:59 Intake Total 360 / 360 600 / 600 285 / 285 Output Total 600 / 600 440 / 440 Balance -240 / -240 160 / 160 285 / 285 Weight 78 kg Intake: Oral 360 / 360 600 / 600 285 / 285 Output: Urine 600 / 600 440 / 440 Other: # Urine Diapers 2 Date of Last Bowel Movement 06/17/18 06/19/18 06/19/18 # Bowel Movements 1 Result Diagrams: 06/18/18 08:30 06/20/18 06:21 Laboratory Results: Laboratory Results - last 24 hr 06/20/18 06:21 Sodium 120 L* Potassium 3.7 Chloride 83 L Carbon Dioxide 27.0 Anion Gap 10 BUN 8 Creatinine 0.60 Estimated GFR Greater than 89 Random Glucose 89 Calcium 8.0 L Medications: Active Medications Generic Name Dose Route Start Last Admin Trade Name Freq PRN Reason Stop Dose Admin Al Hydroxide/Mg Hydroxide 30 ml 06/18/18 09:37 06/19/18 09:43 Milk Of Magnesia Liq PO 30 ml Q12H PRN Administration Mild Constipation Lisinopril 20 mg 06/19/18 09:00 06/20/18 09:33 Prinivil PO 20 mg DAILY WILL Administration Morphine Sulfate 30 mg 06/18/18 09:45 06/20/18 09:32 Oramorph Sr PO 30 mg Q12H WILL Administration Oxycodone HCl 10 mg 06/18/18 09:40 06/20/18 09:36 Roxicodone PO 10 mg Q6H PRN Administration Pain 3-10 Senna/Docusate Sodium 1 tab 06/18/18 21:00 06/20/18 09:32 Nupur-Colace PO 1 tab BID WILL Administration Sodium Chloride 2 ml 06/18/18 21:00 06/20/18 09:34 Ns Flush IV.FLUSH 2 ml BID WILL Administration Sodium Chloride 1 gm 06/19/18 14:30 06/20/18 09:33 Sodium Chloride PO 1 gm BID WILL Administration Objective Remarks: GENERAL: Chronically ill-appearing thin male patient, in no acute distress. SKIN: Warm and dry. HEAD: Normocephalic. EYES: No scleral icterus. No injection or drainage. NECK: Supple, trachea midline. CARDIOVASCULAR: Regular rate and rhythm without murmurs. RESPIRATORY: Breath sounds diminished lower bases. No accessory muscle use. GASTROINTESTINAL: Abdomen soft, non-tender, nondistended. EXTREMITIES: No cyanosis, or edema. MUSCULOSKELETAL: Decreased muscle tone. NEUROLOGICAL: No obvious focal deficit. Sleeping on approach, awakens easily to voice, and oriented x3. PSYCHIATRIC: Appropriate mood and affect; insight and judgment normal. Assessment/Plan - Plan Mr. Ng is a pleasant 63-year-old gentleman, diagnosed with well- differentiated hepatocellular carcinoma arising in the background of cirrhosis. He was not a candidate for liver transplant or resection. He went to interventional radiology on 06/18/2018 for mapping and to see if he is a candidate for Y-90 radioembolization. The patient was found to have a sodium level of 110 and was sent to the hospital. Recommendations: 1. Hepatocellular carcinoma, the patient's prognosis is poor. Discussed with Dr. Anderson and he is no longer a candidate for Y-90 radial embolization. He is also not a candidate for any further chemotherapy. This has been discussed with the patient. 2. Hyponatremia, could be secondary to HCTZ and/or underlying liver disease. He was placed on a fluid restriction and his sodium increased to 120 today. Patient has also been given sodium tablets. 3. Patient with poor prognosis, once his sodium is corrected he would like to go home with hospice at home. Consult placed to hospice. - Attending Statement The exam, history, and the medical decision-making described in the above note were completed with the assistance of the mid-level provider. I reviewed and agree with the findings presented. I attest that I had a [id number] encounter with the patient on the same day, and personally performed and documented my assessment and findings in the medical record. Patient is feeling little better today. I have discussed his case with interventional radiology. Patient is no longer candidate for Y 90 radioembolization due to extensive disease in the liver. His disease is progressing rapidly. Patient is declining. I have extensive discussion with patient regarding his prognosis. I told him he is not a candidate for Nexavar at this point. I think his best option is hospice care. Patient understand his prognosis and has accepted his fate. He is agreeable to talk to hospice. His sodium level has improved with fluid restriction and sodium supplement. Palliative care medicine is also following. Patient can be discharged to care center once he and his girlfriend agree with hospice placement.
[2018-06-21] MEDS: Sodium Chloride 1 GM Tablet PO SCH ×2 (08:27→22:01)
[2018-06-21] MEDS: Lisinopril 20 MG Tablet PO SCH (08:27)
[2018-06-21] MEDS: Senna/Docusate Sodium 8.6/50 MG Tablet PO SCH ×2 (08:27→22:01)
[2018-06-21] MEDS: Morphine Sulfate 30 MG SR Tablet PO SCH ×2 (09:58→22:01)
[2018-06-21 11:53] LABS: Alanine Aminotransferase 269 U/L (12-78); Albumin 2.6 g/dL (3.4-5.0); Anion Gap 11 meq/L (5-15); Aspartate Aminotransferase 225 U/L (15-37); Blood Urea Nitrogen 10 mg/dL (7-18); Calcium 8.2 mg/dL (8.5-10.1); Carbon Dioxide 26.4 meq/L (21.0-32.0); Chloride 86 meq/L (98-107); Glomerular Filtration Rate Greater Than 89 mL/min (>89); Glucose,Random 92 mg/dL (74-106); Potassium 3.9 meq/L (3.5-5.1)
[2018-06-21 11:55] LABS: Alkaline Phosphatase 143 U/L (45-117); Total Protein 6.3 g/dL (6.4-8.2)
--- NOTE | 2018-06-21 11:56 | P.PNONC ---
Subjective Interval history: Afebrile, sitting on the bedside in no acute distress. Patient reports hospice came and met with him and he is decided on home with hospice care. We are awaiting his sodium level today. He reports redness to his left lower extremity, anterior and lateral mid thigh to just below knee. Nonblanching. He continues to have dependent BLE edema. No other complaints at this time, he is in good spirits Objective Vital Signs/Intake & Output: Vital Signs 06/20/18 12:00 06/20/18 12:49 06/20/18 16:00 Temperature 97.7 F 97.8 F Pulse Rate 101 H 107 H Respiratory Rate 18 18 18 Blood Pressure 130/82 123/77 Pulse Oximetry 94 L 95 06/20/18 18:00 06/20/18 20:00 06/21/18 00:00 Temperature 97.9 F 98.4 F Pulse Rate 101 H 92 H 70 Respiratory Rate 16 16 Blood Pressure 141/84 H 135/75 Pulse Oximetry 98 95 06/21/18 04:00 06/21/18 08:20 06/21/18 11:38 Temperature 98.6 F 98.0 F 98.2 F Pulse Rate 97 H 96 H 96 H Respiratory Rate 16 18 16 Blood Pressure 149/86 H 124/72 136/78 Pulse Oximetry 96 93 L 93 L Intake & Output 06/20/18 06/21/18 06/21/18 18:59 06:59 18:59 Intake Total 810 / 810 Output Total 700 / 700 200 / 200 Balance 110 / 110 -200 / -200 Weight 78.4 kg Intake: Oral 810 / 810 Output: Urine 700 / 700 200 / 200 Other: # Voids 2 Date of Last Bowel Movement 06/19/18 06/19/18 06/19/18 Result Diagrams: 06/18/18 08:30 06/21/18 11:10 Medications: Active Medications Generic Name Dose Route Start Last Admin Trade Name Freq PRN Reason Stop Dose Admin Al Hydroxide/Mg Hydroxide 30 ml 06/18/18 09:37 06/19/18 09:43 Milk Of Magnesia Liq PO 30 ml Q12H PRN Administration Mild Constipation Diphenhydramine HCl 25 mg 06/18/18 13:28 06/21/18 01:28 Benadryl PO 25 mg Q6H PRN Administration ITCHING Lisinopril 20 mg 06/19/18 09:00 06/21/18 08:27 Prinivil PO 20 mg DAILY WILL Administration Morphine Sulfate 30 mg 06/18/18 09:45 06/21/18 09:58 Oramorph Sr PO 30 mg Q12H WILL Administration Oxycodone HCl 10 mg 06/18/18 09:40 06/21/18 08:30 Roxicodone PO 10 mg Q6H PRN Administration Pain 3-10 Senna/Docusate Sodium 1 tab 06/18/18 21:00 06/21/18 08:27 Nupur-Colace PO 1 tab BID WILL Administration Sodium Chloride 2 ml 06/18/18 21:00 06/20/18 21:06 Ns Flush IV.FLUSH 2 ml BID WILL Administration Sodium Chloride 2 ml 06/18/18 09:37 06/21/18 08:27 Ns Flush IV.FLUSH 2 ml PRN PRN Administration FLUSH AFTER USING IV ACCESS Sodium Chloride 1 gm 06/19/18 14:30 06/21/18 08:27 Sodium Chloride PO 1 gm BID WILL Administration Objective Remarks: GENERAL: Chronically ill-appearing thin male patient, in no acute distress. SKIN: Warm and dry. Erythema to bilateral lower extremities, left anterior and lateral mid calf to below knee, nonblanching rash. HEAD: Normocephalic. EYES: No scleral icterus. No injection or drainage. NECK: Supple, trachea midline. CARDIOVASCULAR: Regular rate and rhythm without murmurs. RESPIRATORY: Breath sounds diminished lower bases. No accessory muscle use. GASTROINTESTINAL: Abdomen soft, non-tender, nondistended. EXTREMITIES: No cyanosis. BLE edema, erythematous rash, non-blanching slightly raised. MUSCULOSKELETAL: Decreased muscle tone. NEUROLOGICAL: No obvious focal deficit. Awake, alert and oriented x3. PSYCHIATRIC: Appropriate mood and affect; insight and judgment normal. Assessment/Plan - Plan Mr. Ng is a pleasant 63-year-old gentleman, diagnosed with well- differentiated hepatocellular carcinoma arising in the background of cirrhosis. He was not a candidate for liver transplant or resection. He went to interventional radiology on 06/18/2018 for mapping and to see if he is a candidate for Y-90 radioembolization. The patient was found to have a sodium level of 110 and was sent to the hospital. Recommendations: 1. Hepatocellular carcinoma, the patient's prognosis is poor. Discussed with Dr. Anderson and he is no longer a candidate for Y-90 radial embolization. He is also not a candidate for any further chemotherapy. This has been discussed with the patient. 2. Hyponatremia, could be secondary to HCTZ and/or underlying liver disease. He was placed on a fluid restriction and his sodium increased to 120 yesterday. Awaiting current sodium level. 3. Erythematous rash to bilateral lower extremities, left worse than right. Likely secondary to edema. Compression stockings ordered. Will defer needs for antibiotics to attending. 4. Patient with poor prognosis, once his sodium is corrected he would like to go home with hospice at home. Hospice has consulted on this patient, his sodium level is pending. If it is continue to increase he will be cleared for discharge home with hospice from an oncology standpoint. - Attending Statement The exam, history, and the medical decision-making described in the above note were completed with the assistance of the mid-level provider. I reviewed and agree with the findings presented. I attest that I had a [id number] encounter with the patient on the same day, and personally performed and documented my assessment and findings in the medical record. Patient is feeling better. He has agreed to go on hospice. He has met with hospice and he plans to go home with hospice. He stated that his significant other has also accepted the decision. His sodium level continues to trend up to 123. Continue supportive care. He can be discharged with hospice from oncology standpoint.
[2018-06-21 11:59] LABS: Sodium 123 meq/L (136-145)
--- NOTE | 2018-06-21 14:51 | P.PN ---
Subjective Interval history: signed up with Hospice good po no diarrhea home with hospice tomorrow Physical Exam Vital signs: Vital Signs 06/20/18 16:00 06/20/18 18:00 06/20/18 20:00 Temperature 97.8 F 97.9 F Pulse Rate 107 H 101 H 92 H Respiratory Rate 18 16 Blood Pressure 123/77 141/84 H Pulse Oximetry 95 98 06/21/18 00:00 06/21/18 04:00 06/21/18 08:20 Temperature 98.4 F 98.6 F 98.0 F Pulse Rate 70 97 H 96 H Respiratory Rate 16 16 18 Blood Pressure 135/75 149/86 H 124/72 Pulse Oximetry 95 96 93 L 06/21/18 11:38 06/21/18 12:00 Temperature 98.2 F Pulse Rate 96 H 96 H Respiratory Rate 16 Blood Pressure 136/78 Pulse Oximetry 93 L Intake & Output 06/20/18 06/21/18 06/21/18 18:59 06:59 18:59 Intake Total 810 / 810 Output Total 700 / 700 200 / 200 Balance 110 / 110 -200 / -200 Weight 78.4 kg Intake: Oral 810 / 810 Output: Urine 700 / 700 200 / 200 Other: # Voids 2 Date of Last Bowel Movement 06/19/18 06/19/18 06/19/18 Narrative: GENERAL: no acute distress SKIN: Warm and dry. Some reddish plaques over the left anterior mid lower leg area HEAD: Atraumatic. Normocephalic. EYES: Pupils equal and round. No scleral icterus. No injection or drainage. NECK: Trachea midline. No JVD. CARDIOVASCULAR: Regular rate and rhythm. RESPIRATORY: No accessory muscle use. Clear to auscultation. Breath sounds equal bilaterally. GASTROINTESTINAL: Abdomen distended, softer on exam today good bowel sounds MUSCULOSKELETAL: Extremities without clubbing, cyanosis, 1+ pitting edema no obvious deformities. NEUROLOGICAL: Awake and alert to person place time and situation. No obvious cranial nerve deficits. Motor grossly within normal limits. Five out of 5 muscle strength in the arms and legs. Normal speech. PSYCHIATRIC: Appropriate mood and affect; insight and judgment normal. Results - Labs CBC & Chem 7: 06/18/18 08:30 06/21/18 11:10 Laboratory Results - last 24 hr 06/21/18 11:10 Sodium 123 L* Potassium 3.9 Chloride 86 L Carbon Dioxide 26.4 Anion Gap 11 BUN 10 Creatinine 0.66 Estimated GFR Greater than 89 Random Glucose 92 Calcium 8.2 L Total Bilirubin 1.8 H AST 225 H ALT 269 H Alkaline Phosphatase 143 H Total Protein 6.3 L Albumin 2.6 L Assessment and Plan - Assessment (1) Hyponatremia Code(s): E87.1 - Hypo-osmolality and hyponatremia Status: Acute - Plan 63-year-old white male with a history of hepatocellular carcinoma, hepatitis C was scheduled for mapping radioablation with interventional radiology who was found to have low sodium - DC when cleared with Oncology - US shows minimal ascites - all mass Severe hyponatremia-chronic- gradually trending up- [phone] - with mild ascites and peripheral edema - fluid restriction =HCTZ was DC on admission. Placed on seizure precaution. - continue on NaCl 1 tab bid -will not recheck Na level - for DC tomorrow with home hospice History of hepatocellular carcinoma -consult Dr. Mcghee his oncologist for further recommendations. Discussed with Dr. Anderson, interventional radiology who will be willing to reschedule for another mapping and prep for radial ablation if cleared medically by us and Dr. Mcghee. palliative care service to discuss with patient short-term and long-term goals. Continue with current current home narcotics for pain control. History of hypertension, resume lisinopril, vasotec prn for uncontrolled BP DVT prophylaxishold anticoagulation secondary to liver dysfunction due to hepatocellular carcinoma Home with hospice tomorrow- STEPAN snowden- [facility] ff- d/w Brenda Hospice nurse -
--- NOTE | 2018-06-22 07:18 | P.PNONC ---
Subjective Interval history: Patient was complaining of constipation yesterday but had good bowel movement with laxative. He is feeling better. His abdominal pain is controlled. He has no nausea or vomiting. He has no chest pain or shortness of breath. Objective Vital Signs/Intake & Output: Vital Signs 06/21/18 08:20 06/21/18 11:38 06/21/18 12:00 Temperature 98.0 F 98.2 F Pulse Rate 96 H 96 H 96 H Respiratory Rate 18 16 Blood Pressure 124/72 136/78 Pulse Oximetry 93 L 93 L 06/21/18 16:00 06/21/18 16:15 06/21/18 20:00 Temperature 97.7 F 98.4 F Pulse Rate 90 101 H 93 H Respiratory Rate 16 16 Blood Pressure 126/75 140/79 Pulse Oximetry 93 L 95 06/22/18 00:00 06/22/18 04:00 Temperature 97.9 F 98 F Pulse Rate 90 90 Respiratory Rate 14 16 Blood Pressure 150/86 H 124/71 Pulse Oximetry 95 94 L Intake & Output 06/21/18 06/22/18 06/22/18 18:59 06:59 18:59 Intake Total 240 / 240 480 / 480 Output Total 1150 / 1150 450 / 450 Balance -910 / -910 30 / 30 Weight 77.8 kg Intake: Oral 240 / 240 480 / 480 Output: Urine 1150 / 1150 450 / 450 Other: Date of Last Bowel Movement 06/19/18 06/22/18 # Bowel Movements 1 # Emeses 1 Result Diagrams: 06/18/18 08:30 06/21/18 11:10 Laboratory Results: Laboratory Results - last 24 hr 06/21/18 11:10 Sodium 123 L* Potassium 3.9 Chloride 86 L Carbon Dioxide 26.4 Anion Gap 11 BUN 10 Creatinine 0.66 Estimated GFR Greater than 89 Random Glucose 92 Calcium 8.2 L Total Bilirubin 1.8 H AST 225 H ALT 269 H Alkaline Phosphatase 143 H Total Protein 6.3 L Albumin 2.6 L Medications: Active Medications Generic Name Dose Route Start Last Admin Trade Name Freq PRN Reason Stop Dose Admin Al Hydroxide/Mg Hydroxide 30 ml 06/18/18 09:37 06/19/18 09:43 Milk Of Magnesia Liq PO 30 ml Q12H PRN Administration Mild Constipation Diphenhydramine HCl 25 mg 06/18/18 13:28 12/13/18 23:13 Benadryl PO 25 mg Q6H PRN Administration ITCHING Lactulose 30 ml 06/18/18 09:37 06/21/18 22:00 Lactulose Liq PO 30 ml DAILY PRN Administration SEVERE CONSITIPATION Lisinopril 20 mg 06/19/18 09:00 06/21/18 08:27 Prinivil PO 20 mg DAILY WILL Administration Morphine Sulfate 30 mg 06/18/18 09:45 06/21/18 22:01 Oramorph Sr PO 30 mg Q12H WILL Administration Oxycodone HCl 10 mg 06/18/18 09:40 06/22/18 05:19 Roxicodone PO 10 mg Q6H PRN Administration Pain 3-10 Senna/Docusate Sodium 1 tab 06/18/18 21:00 06/21/18 22:01 Nupur-Colace PO 1 tab BID WILL Administration Sodium Chloride 2 ml 06/18/18 21:00 06/21/18 22:02 Ns Flush IV.FLUSH 2 ml BID WILL Administration Sodium Chloride 2 ml 06/18/18 09:37 06/21/18 08:27 Ns Flush IV.FLUSH 2 ml PRN PRN Administration FLUSH AFTER USING IV ACCESS Sodium Chloride 1 gm 06/19/18 14:30 06/21/18 22:01 Sodium Chloride PO 1 gm BID WILL Administration Objective Remarks: GENERAL: Well-nourished, well-developed patient. SKIN: Warm and dry. HEAD: Normocephalic. EYES: No scleral icterus. No injection or drainage. NECK: Supple, trachea midline. No JVD or lymphadenopathy. LYMPHATIC: No adenopathy. CARDIOVASCULAR: Regular rate and rhythm without murmurs. RESPIRATORY: Breath sounds equal bilaterally. No accessory muscle use. GASTROINTESTINAL: Abdomen soft, distended, firm in the right upper quadrant, tender to deep palpation. EXTREMITIES: No cyanosis, 2+ bilateral lower extremity edema. MUSCULOSKELETAL: Adequate muscle tone. NEUROLOGICAL: No obvious focal deficit. Awake, alert, and oriented x3. PSYCHIATRIC: Appropriate mood and affect; insight and judgment normal. Assessment/Plan - Plan Mr. Ng is a pleasant 63-year-old gentleman, diagnosed with well- differentiated hepatocellular carcinoma arising in the background of cirrhosis. He was not a candidate for liver transplant or resection. He went to interventional radiology on 06/18/2018 for mapping and to see if he is a candidate for Y-90 radioembolization. The patient was found to have a sodium level of 110 and was sent to the hospital. Recommendations: 1. Hepatocellular carcinoma, the patient's prognosis is poor. Discussed with Dr. Anderson and he is no longer a candidate for Y-90 radial embolization. He is also not a candidate for any further chemotherapy. This has been discussed with the patient. Overall prognosis is poor. 2. Hyponatremia, could be secondary to HCTZ and/or underlying liver disease. He was placed on a fluid restriction and his sodium increased to 123 yesterday. 3. Erythematous rash to bilateral lower extremities, left worse than right. Likely secondary to edema. He is now wearing compression stocking. He has no lower extremity tenderness. 4. Patient with poor prognosis, he has signed up with hospice. He is possibly going home with hospice today. He can be discharge home with hospice from an oncology standpoint. Continue pain control per hospice.
--- NOTE | 2018-06-22 08:49 | P.DS ---
DS: Providers Date of admission: 06/18/18 09:37 Primary care physician: Kayla Ambriz Consults: 06/18/18 13:14 Consult to Oncology Routine Consulting Provider: Brady Mcghee Vice President Mission Integration:: Brady Mcghee Patient known to:: Brady Mcghee Reason for Consultation: Hepatocarcinoma with hyponatremia, patient know to you Notified:: Service Spoke with:: Jose C Date Notified:: 06/18/18 Time Notified:: 13:26 Ordering Provider: SALVATORE Consult to Palliative Care Routine Consulting Provider: Olivia House Reason for Consultation: hepatocarcinoma, assist with short term and flatwork washer goals Notified:: Service Spoke with:: JOHN Date Notified:: 06/18/18 Time Notified:: 13:24 Ordering Provider: SALVATORE Brief History from admission: 63-year-old white male with a history of hepatocellular carcinoma, hepatitis C, hypertension who was originally scheduled for interventional radiology for mapping for radial embolization when he was found to have a low sodium today at 110. This was changed from May lab work in which his sodium was 129 and again sodium 120 at June 13. Currently, patient denies any headaches, confusion, nor any previous seizure activity. He has chronic right upper quadrant abdominal pain which is controlled with home morphine and breakthrough oxycodone. He does take hydrochlorothiazide on a daily basis as prescribed. He reports no changes with his abdominal distention. He is urinating without any difficulty. He also reports his chronic swelling of his legs not worse. DS: Diagnosis Discharge Diagnosis (1) Hyponatremia: Status: Acute DS: Summary 63-year-old white male with a history of hepatocellular carcinoma, hepatitis C was scheduled for mapping radioablation with interventional radiology, oncology was consulted. Patient also was treated for severe hyponatremia associated with mild ascites and peripheral edema. Patient was placed on fluid restriction and hydrochlorothiazide was stopped. Patient was continued on sodium chloride tablets twice a day. Oncology was consulted, palliative care was also consulted, patient opted to be on hospice. Patient will be discharged on narcotics for pain control. Time Spent with Patient Total time spent providing and/or coordinating discharge services: >30 minutes Quality: VTE Deep Vein Thrombosis/Pulmonary Embolism Present on Admission: No Exam Narrative Exam Narrative: GENERAL: no acute distress CARDIOVASCULAR: Regular rate and rhythm. RESPIRATORY: No accessory muscle use. Clear to auscultation. Breath sounds equal bilaterally. GASTROINTESTINAL: Abdomen distended, softer on exam today good bowel sounds MUSCULOSKELETAL: Extremities without clubbing, cyanosis, 1+ pitting edema no obvious deformities. NEUROLOGICAL: Awake and alert to person place time and situation. No obvious cranial nerve deficits. Motor grossly within normal limits. Five out of 5 muscle strength in the arms and legs. Normal speech. Results Labs on day of discharge: Labs from last 24 hours 06/21/18 11:10 Sodium 123 L* Potassium 3.9 Chloride 86 L Carbon Dioxide 26.4 Anion Gap 11 BUN 10 Creatinine 0.66 Estimated GFR Greater than 89 Random Glucose 92 Calcium 8.2 L Total Bilirubin 1.8 H AST 225 H ALT 269 H Alkaline Phosphatase 143 H Total Protein 6.3 L Albumin 2.6 L Impressions ITS Impressions Abdomen Ultrasound 06/19/18 00:00 CONCLUSION: Minimal ascites. Discharge Plan Discharge Disposition Patient Disposition: 50 Hospice/Home Discharge Order Discharge Orders: Discharge Order (Routine); Ordered 06/22/18 Ordered By: Linda Haley Physicians Team Attending Provider: Linda Haley Other Providers: Brady Mcghee ; Olivia House Rxs /Orders / Referrals /Forms Prescriptions: New sennosides-docusate sodium [Senna Laxative-Stool Softener] 8.6-50 mg tablet 1 tab PO BID Qty: 60 RF: 0 lactulose 20 gram/30 mL Solution 30 ml PO DAILY PRN (Reason: Severe Consitipation) Qty: 1 RF: 0 sodium chloride 1 gram Tablet 1 gm PO BID Qty: 60 RF: 0 Continue lisinopril 20 mg Tablet 20 mg PO DAILY Qty: 30 RF: 0 amlodipine [Norvasc] 10 mg Tablet 10 mg PO DAILY Qty: 30 RF: 0 potassium chloride 10 mEq Tablet Extended Release 10 meq PO DAILY RF: 0 morphine 30 mg Tablet Extended Release 30 mg PO Q12H RF: 0 oxycodone 10 mg Tablet 10 mg PO Q4-6H PRN (Reason: Pain) RF: 0 Discontinued hydrochlorothiazide 12.5 mg Capsule 12.5 mg PO DAILY Qty: 30 RF: 0 Referrals: Kayla Ambriz [Other] - See Instructions Discharge Interventions Interventions: Discharge Planning - Case Management Last Done: 06/22/18 07:23
[2018-06-22] MEDS: Morphine Sulfate 30 MG SR Tablet PO SCH (08:55)
[2018-06-22] MEDS: Sodium Chloride 1 GM Tablet PO SCH (08:55)
[2018-06-22] MEDS: Senna/Docusate Sodium 8.6/50 MG Tablet PO SCH (08:55)
[2018-06-22] MEDS: Lisinopril 20 MG Tablet PO SCH (08:55)
== END 2018-06-22 10:37 | disposition hospice, home (50) ==
LOC: HROP 07:35 → HRIP 07:39 → HCIN 12:35
PROVIDERS: ADMIT Hospitalist; ATTEND Hospitalist